=== PATIENT | female | born 1945 | race Hispanic/Latino ===

== ENCOUNTER 2018-09-03 17:37 | Inpatient (IN) | payer MEDICARE ==
[~2018-09-03] VITALS: Ht 157.5 cm; Wt 76.7 kg
[~2018-09-03 17:37] MED LIST: ALLOPURINOL100 MG PO; ASPIR 8181 MG; CIPRO500 MG PO; COREG12.5 MG; COUMADIN3 MG PO; CRESTOR40 MG; LANTUS100 UNITS/; LOSARTAN POTASS25 MG PO; METOPROLOL SUCC50 MG PO; PROMETHAZINE HC25 M1 PO; RENA-VITE TABL0.8 MG; RENA-VITE TABL0.8 MG PO; ROCALTROL1 MCG/1 ML; TYLENOL WITH C1 EACH PO; ZESTRIL2.5 MG PO
[2018-09-03] MEDS ORDERED: COUMADIN3 MG PO (18:16)
[2018-09-03] MEDS ORDERED: CALCITRIOL0.25 MCG PO (18:18)
[2018-09-03] MEDS ORDERED: LATANOPROST2.5 ML OU (18:22)
[2018-09-03] MEDS ORDERED: BASAGLAR SC (18:22)
[2018-09-03] MEDS ORDERED: ACETAMINOPHEN 1000 MG/100 ML IV STA (18:45)
[2018-09-03] MEDS ORDERED: SODIUM CHLORIDE 0.9% 1000ML 1,000 ML IV ONE (18:45)
[2018-09-03] MEDS ORDERED: SODIUM CHLORIDE 0.9% 1000ML 1,000 ML ONE (18:50)
[2018-09-03 18:52] LABS: BASOPHILS % 0.3 % (0.0-1.0); EOSINOPHILS % 0.1 % (0.0-6.0); HEMATOCRIT 37.5 % (34.2-44.1); HEMOGLOBIN 12.3 g/dL (12.0-16.0); LYMPHOCYTES # (AUTO) 0.8 (1.0-3.2); LYMPHOCYTES % 8.1 % (18.0-39.1); MEAN CORPUSCULAR HEMOGLOBIN 29.5 pg (28-32); MEAN CORPUSCULAR HGB CONC 32.8 g/dL (31-35); MEAN CORPUSCULAR VOLUME 89.9 fL (81-99); MONOCYTES # (AUTO) 0.7 (0.2-0.8); MONOCYTES % 6.8 % (4.4-11.3); NEUTROPHILS # (AUTO) 8.7 (2.1-6.9); NEUTROPHILS % 84.4 % (38.7-80.0); PLATELET COUNT 154 x10e3/uL (140-360); RED BLOOD COUNT 4.17 x10e6/uL (3.6-5.1); RED CELL DISTRIBUTION WIDTH 15.1 % (11.7-14.4)
[2018-09-03 19:05] LABS: ALBUMIN 2.9 g/dL (3.5-5.0); ALBUMIN/GLOBULIN RATIO 0.7 (0.8-2.0); ANION GAP 15.9 mmol/L (8-16); CREATININE, SERUM 2.69 mg/dL (0.57-1.11); POTASSIUM 4.9 mmol/L (3.5-5.1)
--- NOTE | 2018-09-03 19:17 | NUR ---
Walking rounds with DIRK Mckeon.
--- NOTE | 2018-09-03 19:24 | Diagnostic Imaging Report ---
EXAMINATION: CHEST SINGLE (PORTABLE) INDICATION: ^Chest pain COMPARISON: None FINDINGS: AP view TUBES and LINES: None. LUNGS: Lungs are well inflated. Bilateral interstitial edema. No consolidations. PLEURA: No pleural effusion or pneumothorax. HEART AND MEDIASTINUM: Moderate enlargement of the cardiac silhouette. Mild atherosclerotic calcifications of the aortic arch. BONES AND SOFT TISSUES: No acute osseous lesion. Soft tissues are unremarkable. UPPER ABDOMEN: No free air under the diaphragm. IMPRESSION: Cardiomegaly with associated bilateral interstitial edema. Signed by: Dr. Jo Ann Malone M.D. on 09/03/2018 7:21 PM
[2018-09-03 19:30] LABS: B-TYPE NATRIURETIC PEPTIDE2 1073.5 pg/mL (0-100)
[2018-09-03 19:31] LABS: BILIRUBIN,URINE NEGATIVE (NEGATIVE); CLARITY,URINE SL CLOUDY (CLEAR); COLOR,URINE YELLOW (YELLOW); KETONES,URINE NEGATIVE (NEGATIVE); LEUKOCYTE ESTERASE ,URINE NEGATIVE (NEGATIVE); NITRITE,URINE NEGATIVE (NEGATIVE); PROTEIN,URINE DIPSTICK 2+ (NEGATIVE); URINE UROBILINOGEN 0.2 mg/dL (0.2 - 1)
[2018-09-03 19:41] LABS: BACTERIA,URINE MANY /HPF; RBC,URINE 21-50 /HPF (0-5)
[2018-09-03] MEDS ORDERED: FUROSEMIDE INJ 10 MG/ML 4 ML VIAL IV ONE (20:15)
[2018-09-03] MEDS ORDERED: ACETAMINOPHEN 325 MG TAB PO PRN (20:30)
[2018-09-03] MEDS ORDERED: SODIUM CHLORIDE FLUSH 10 ML SYR INJ PRN (20:30)
[2018-09-03] MEDS ORDERED: DEXTROSE 50% SYRINGE 50 ML IV PRN (20:30)
[2018-09-03] MEDS ORDERED: ONDANSETRON HCL INJ 2MG/ML 2ML 2 MG/ML VIAL IV ONE (20:30)
[2018-09-03] MEDS: CEFTRIAXONE SOD 1 GM/NS 50 ML 50 ML IV SCH (20:43)
--- OUTSIDE RECORDS SUMMARY | 2018-09-03 20:44 | XMS REPORT ---
[facility] Address Unknown Phone Unavailable Care Team Providers Care Storm Window Installer Name Role Phone Carolyn PHAN Unavailable Unavailable Problems This patient has no known problems. Allergies, Adverse Reactions, Alerts This patient has no known allergies or adverse reactions. Medications This patient has no known medications. Results Test Description Test Time Test Comments Text Results Atomic Results Result Comments CHEST SINGLE (PORTABLE) 2018-09-03 19:18:00 [place] [address] Patient Name: ANGE HOLLAND MR #: [id number] : 1945 Age/Sex: 73/F Req #: [id number] Adm Physician: Ordered by: ANKUSH PHAN MD Report #: [id number] Location: ER Room/Bed: Procedure: [id number] DX/CHEST SINGLE (PORTABLE) Exam Date: 09/03/18 Exam Time: 1900 REPORT STATUS: Signed EXAMINATION: CHEST SINGLE (PORTABLE) INDICATION: Chest pain COMPARISON: None FINDINGS: AP view TUBES and LINES: None. LUNGS: Lungs are well inflated. Bilateral interstitial edema. No consolidations. PLEURA: No pleural effusion or pneumothorax. HEART AND MEDIASTINUM: Moderate enlargement of the cardiac silhouette. Mild atherosclerotic calcifications of the aortic arch. BONES AND SOFT TISSUES: No acute osseous lesion. Soft tissues are unremarkable. UPPER ABDOMEN: No free air under the diaphragm. IMPRESSION: Cardiomegaly with associated bilateral interstitial edema. Signed by: Dr. Jin Malone M.D. on 09/03/2018 7:21 PM Dictated By: JIN MALONE MD 20 Transcribed By: MARIANA on 09/03/181920 COPY TO: ANKUSH PHAN MD
[2018-09-03] MEDS: INSULIN REGULAR, HUMAN 100 UNIT/1 ML 3ML VIAL SQ SCH (23:03)
--- NOTE | 2018-09-03 23:40 | NUR ---
Received report from Linda, [place] nurse. Patient came to the unit via stretcher and accompanied by her daughter and son. No pain or distress noted. Call light within reach
[2018-09-03 23:49] VITALS: BP 110/57
[2018-09-04] VITALS (7 sets, daily range): BP systolic 90–136; BP diastolic 53–84
--- NOTE | 2018-09-04 04:31 | NUR ---
Called Dr. Arias about patient's temperature and 9 out of 10 pain. He said to give Tylenol 650 mg PO and Tylenol 1 g IV.
[2018-09-04] MEDS ORDERED: ACETAMINOPHEN 1000 MG/100 ML IV STA (04:32)
[2018-09-04] MEDS ORDERED: SODIUM CHLORIDE 0.9% 250ML 250 ML ONE ×2 (04:48→21:11)
[2018-09-04 05:23] LABS: BASOPHILS % 0.2 % (0.0-1.0); HEMATOCRIT 35.2 % (34.2-44.1); HEMOGLOBIN 11.7 g/dL (12.0-16.0); LYMPHOCYTES # (AUTO) 0.3 (1.0-3.2); LYMPHOCYTES % 3.5 % (18.0-39.1); MEAN CORPUSCULAR HEMOGLOBIN 29.3 pg (28-32); MEAN CORPUSCULAR HGB CONC 33.2 g/dL (31-35); MEAN CORPUSCULAR VOLUME 88.2 fL (81-99); MONOCYTES # (AUTO) 0.4 (0.2-0.8); MONOCYTES % 4.2 % (4.4-11.3); NEUTROPHILS # (AUTO) 7.8 (2.1-6.9); NEUTROPHILS % 91.7 % (38.7-80.0); PLATELET COUNT 140 x10e3/uL (140-360); RED BLOOD COUNT 3.99 x10e6/uL (3.6-5.1); RED CELL DISTRIBUTION WIDTH 14.7 % (11.7-14.4)
[2018-09-04 05:48] LABS: CREATINE KINASE MB 4.3 ng/mL (0-5.0)
[2018-09-04 06:15] LABS: ALBUMIN 2.5 g/dL (3.5-5.0); ALBUMIN/GLOBULIN RATIO 0.6 (0.8-2.0); ANION GAP 16.2 mmol/L (8-16); CALCIUM 8.4 mg/dL (8.4-10.2); CREATININE, SERUM 2.48 mg/dL (0.57-1.11); POTASSIUM 4.2 mmol/L (3.5-5.1)
--- NOTE | 2018-09-04 07:20 | NUR ---
pt asleep resp even and unlabored at this time no distress noted, pt arousal to name, and touch, family member at bedside, call light in reach.
--- NOTE | 2018-09-04 07:23 | NUR ---
Patient in bed. No pain or distress. Call light within reach. Son at bedside. Report given to oncoming nurse
[2018-09-04] MEDS: INSULIN REGULAR, HUMAN 100 UNIT/1 ML 3ML VIAL SQ SCH ×4 (07:30→20:54)
[2018-09-04] MEDS: FOLIC ACID/CYANOCOB/PYRIDOXINE TAB PO SCH (08:30)
[2018-09-04] MEDS: ALLOPURINOL 100 MG TAB PO SCH (08:30)
[2018-09-04] MEDS ORDERED: FUROSEMIDE INJ 10 MG/ML 4 ML VIAL IV SCH (09:00)
[2018-09-04] MEDS ORDERED: HYDROCODONE/APAP 7.5MG-325MG 1 EA TAB PO PRN (10:30)
--- NOTE | 2018-09-04 10:40 | NUR ---
pt off unit for testing.
[2018-09-04] MEDS ORDERED: DIATRIZOATE MEGL/DIATRIZOA SOD 30 ML BTL PO ONE (10:48)
[2018-09-04 10:54] LABS: INR 4.01; PROTHROMBIN TIME 39.9 seconds (11.9-14.5)
[2018-09-04] MEDS ORDERED: CEFTRIAXONE SOD 1 GM/NS 50 ML 50 ML IV SCH (11:00)
--- NOTE | 2018-09-04 11:20 | NUR ---
pt returned to unit no distress noted, call light in reach.
[2018-09-04] MEDS ORDERED: HYDRALAZINE HCL 20 MG/ML VIAL IV PRN (11:30)
[2018-09-04] MEDS ORDERED: METOPROLOL TARTRATE INJ 1 MG/ML VIAL IV PRN (11:30)
[2018-09-04] MEDS: AZITHROMYCIN 250MG/NS 100 ML 100 ML IV SCH (12:48)
[2018-09-04] MEDS: METOPROLOL SUCCINATE 50 MG TAB XL PO SCH (12:49)
--- NOTE | 2018-09-04 13:28 | Diagnostic Imaging Report ---
EXAM: CT Chest, Abdomen and Pelvis WITHOUT contrast INDICATION: Shortness of breath. ^FEVER COMPARISON: None. TECHNIQUE: Chest, abdomen and pelvis were scanned utilizing a multidetector helical scanner from the lung apex to the pubic symphysis without administration of IV contrast. Absence of intravenous contrast decreases sensitivity for detection of focal lesions and vascular pathology. Coronal and sagittal reformations were obtained. Routine protocol was performed. IV CONTRAST: None ORAL CONTRAST: Gastrografin COMPLICATIONS: None. Grade 2.48. GFR 19. Patient is not dialysis patient. RADIATION DOSE: Total DLP: 963.46 mGy*cm Estimated effective dose: (DLP x 0.015 x size factor) mSv CTDIvol has been reviewed. It is below the limits set by the Radiation Protocol Committee (RPC). FINDINGS: LINES and TUBES: None. LUNGS AND AIRWAYS: Left lower lobe lobar consolidative pneumonia. Airways are normal. PLEURA: The pleural spaces are clear. HEART AND MEDIASTINUM: The thyroid gland is normal. No mediastinal, hilar or axillary lymphadenopathy. The heart is normal in size. There is no pericardial effusion. There are mild atherosclerotic calcifications in the aorta and coronary arteries. HEPATOBILIARY: No focal hepatic lesions. No biliary ductal dilation. GALLBLADDER: No radio-opaque stones or sludge. No wall thickening. Gallbladder is mildly prominent measuring 7.8 x 4.5 cm. SPLEEN: No splenomegaly. PANCREAS: There is fatty infiltration of the pancreas. ADRENALS: No adrenal nodules KIDNEYS/URETERS: Bilateral renal cortical atrophy. No hydronephrosis. 1.4 cm cystic lesion in the superior pole of the right kidney. No stones. GI TRACT: No abnormal distention, wall thickening, or evidence of bowel obstruction. There are diverticula within the colon without evidence of diverticulitis. Appendix is normal. PELVIC ORGANS/BLADDER: Hernandez catheter is in place. Bladder is fully decompressed. LYMPH NODES: No lymphadenopathy. VESSELS: There is severe atherosclerotic disease in the aorta and major arterial branches. PERITONEUM / RETROPERITONEUM: No free air or fluid. BONES: There are degenerative changes in the lumbar spine. Grade 1 anterior listhesis of L3 on L4. SOFT TISSUES: Unremarkable. IMPRESSION: 1. Left lower lobe lobar pneumonia. 2. Bilateral renal cortical atrophy. 3. Mildly prominent/distended gallbladder. No definite evidence of acute cholecystitis. Signed by: Dr. Rishi Rogers M.D. on 09/04/2018 1:25 PM
[2018-09-04] MEDS: ACETAMINOPHEN 325 MG TAB PO PRN ×2 (13:38→19:21)
[2018-09-04 14:12] LABS: CREATINE KINASE MB 4.9 ng/mL (0-5.0)
[2018-09-04 15:55] LABS: CHOL/HDL RATIO 2.5 (3.0-3.6); PHOSPHORUS 4.7 MG/DL (2.3-4.7)
[2018-09-04 16:15] LABS: THYROID STIMULATING HORMONE 3.019 uIU/mL (0.350-4.940)
--- NOTE | 2018-09-04 17:43 | History and Physical ---
CHIEF COMPLAINT: Fever, generalized weakness, not feeling well and left-sided chest pain associated with increasing cough for the past two days prior to admission. HISTORY OF PRESENT ILLNESS: The patient is a 73-year-old female, who complained of left-sided chest pain when she coughs. The patient has been coughing for the past two days prior to her presentation. She also has a fever as well. The patient came to the emergency room. Chest x-ray showed vascular congestion. She has fever of 101 to 102. She also had a bladder infection, positive for urinalysis. The patient was placed on IV Lasix and antibiotics and admitted to the hospital for further evaluation and treatment. The patient did receive Rocephin. The patient is stable at this time. She is feeling slightly better. PAST MEDICAL HISTORY: Atrial fibrillation, on anticoagulant therapy; hypertension; diabetes type 2; dyslipidemia; morbid obesity; history of DVT of lower extremity; hypothyroidism. PAST SURGICAL HISTORY: Noncontributory. SOCIAL HISTORY: The patient does not smoke or use alcohol. No recreational drug use. ALLERGIES: TO CODEINE. HOME MEDICATIONS: She is on allopurinol, aspirin, calcitriol, folic acid, eye drops, metoprolol succinate, Crestor, Coumadin, and Basaglar insulin. PHYSICAL EXAMINATION: VITAL SIGNS: T-max 101.5; blood pressure 106/58, on admission was 92/68; pulse rate is 112-89; respirations 20-22. GENERAL: The patient seems weak, but she is not in any respiratory distress. HEENT: Normocephalic, atraumatic. Anicteric. NECK: Supple grossly. PULMONARY: Diminished breath sound at the bases with coarse rales. CARDIOVASCULAR: S1, S2. Atrial fibrillation with rapid heart rate. ABDOMEN: Soft and obese. There is tenderness in the left upper chest area on palpation. No rebound. No guarding. EXTREMITIES: No cyanosis or edema. NEUROLOGIC: No gross focal deficit. Moving all extremities. LABORATORY DATA: Sodium is 131, potassium 4.2, chloride 102, bicarb 17, BUN 25, creatinine 2.5, glucose 114. WBCs 8.5, hemoglobin 11.7, hematocrit 35.2, platelets are 140. IMPRESSION: 1. Abnormal chest x-ray with vascular congestion. However, associated with fever and cough, could be secondary to pneumonia. We will have a better testing with a CT chest without contrast due to chronic kidney disease. 2. Vascular congestion, most likely from stress of infection. 3. Positive for urinalysis with urinary tract infection. 4. Fever as above. PLAN: Continue with antibiotic, Rocephin 1 g a day and then azithromycin 250 mg daily as well. Continue with same home medication. Obtain PT, INR, and we will resume warfarin if needed. Continue with rate control medication. Obtain a CT of abdomen and pelvis and CT of the chest, all without IV contrast. We will continue with treatment at this time. Echocardiogram, Dr. Fernandez has been consulted for atrial fibrillation and for chest pain. MD VERNON Barclay/GILL /[id number]
--- NOTE | 2018-09-04 19:21 | NUR ---
REPORT GIVEN TO ONCOMING NURSE, FOR CONTINUED CARE.
--- NOTE | 2018-09-04 19:25 | NUR ---
PATIENT RECEIVED. PATIENT IS RESTING IN BED, AAOX3. RESP EVEN AND UNLABORED. NO ACUTE DISTRESS NOTED. PATIENT DENIES OF ANY PAIN OR DISCOMFORT AT THIS TIME. TELE IN PLACE. PARRA IN PLACE, CLEAR AND YELLOW URINE NOTED. SON AT BED SIDE. CALL LIGHT WITHIN REACH. BED LOW/LOCKED. CONTINUE TO MONITOR CLOSELY
[2018-09-04] MEDS: CEFTRIAXONE SOD 1 GM/NS 50 ML 50 ML IV SCH (20:54)
[2018-09-04] MEDS: LATANOPROST(OPTH) 2.5 ML BTL OU SCH (20:54)
[2018-09-04 23:04] LABS: CREATINE KINASE MB 3.6 ng/mL (0-5.0)
[2018-09-05] VITALS (7 sets, daily range): BP systolic 102–154; BP diastolic 58–96
[2018-09-05 04:56] LABS: BASOPHILS % 0.3 % (0.0-1.0); EOSINOPHILS % 0.1 % (0.0-6.0); HEMATOCRIT 38.7 % (34.2-44.1); HEMOGLOBIN 12.6 g/dL (12.0-16.0); LYMPHOCYTES # (AUTO) 0.3 (1.0-3.2); LYMPHOCYTES % 4.4 % (18.0-39.1); MEAN CORPUSCULAR HEMOGLOBIN 29.2 pg (28-32); MEAN CORPUSCULAR HGB CONC 32.6 g/dL (31-35); MEAN CORPUSCULAR VOLUME 89.6 fL (81-99); MONOCYTES # (AUTO) 0.3 (0.2-0.8); MONOCYTES % 3.4 % (4.4-11.3); NEUTROPHILS # (AUTO) 6.7 (2.1-6.9); NEUTROPHILS % 91.3 % (38.7-80.0); PLATELET COUNT 131 x10e3/uL (140-360); RED BLOOD COUNT 4.32 x10e6/uL (3.6-5.1); RED CELL DISTRIBUTION WIDTH 14.8 % (11.7-14.4)
[2018-09-05 05:07] LABS: INR 4.42
[2018-09-05 05:14] LABS: ANION GAP 17.1 mmol/L (8-16); CREATININE, SERUM 2.58 mg/dL (0.57-1.11); POTASSIUM 4.1 mmol/L (3.5-5.1)
[2018-09-05] MEDS: ACETAMINOPHEN 325 MG TAB PO PRN ×2 (05:41→21:20)
--- NOTE | 2018-09-05 06:38 | NUR ---
NOTIFIED DR ERYN PEREA PT 43, PATIENT HAS BEEN HAVING LOOSE BMX5 AND FEVER THIS MORNING. NEW ORDER RECEIVED.
[2018-09-05] MEDS: INSULIN REGULAR, HUMAN 100 UNIT/1 ML 3ML VIAL SQ SCH ×4 (07:30→21:19)
[2018-09-05] MEDS ORDERED: FUROSEMIDE INJ 10 MG/ML 4 ML VIAL IV SCH (09:00)
[2018-09-05] MEDS: CALCITRIOL 0.25 MCG CAP PO SCH (09:29)
[2018-09-05] MEDS: FOLIC ACID/CYANOCOB/PYRIDOXINE TAB PO SCH (09:29)
[2018-09-05] MEDS: ALLOPURINOL 100 MG TAB PO SCH (09:30)
[2018-09-05] MEDS: METOPROLOL SUCCINATE 50 MG TAB XL PO SCH (09:30)
[2018-09-05 09:42] LABS: BAND NEUTROPHILS % (MANUAL) 4 %; EOSINOPHILS % (MANUAL) 2 % (0-7); LYMPHOCYTES % (MANUAL) 7 % (19-48); MONOCYTES % (MANUAL) 3 % (3.4-9.0); NEUTROPHILS % (MANUAL) 84 % (40-74); PLATELET ESTIMATE ADEQUATE; PLATELET MORPHOLOGY COMMENT NORMAL; RBC MORPHOLOGY COMMENT NORMAL
[2018-09-05] MEDS: SODIUM CHLORIDE 0.9% 1000ML 1,000 ML IV SCH ×2 (09:57→21:19)
[2018-09-05] MEDS: VANCOMYCIN 1GM/NS 250 ML 250 ML IV SCH (09:57)
[2018-09-05] MEDS: AZITHROMYCIN 250MG/NS 100 ML 100 ML IV SCH (12:10)
[2018-09-05] MEDS ORDERED: METOPROLOL TARTRATE INJ 1 MG/ML VIAL IV PRN (12:30)
[2018-09-05] MEDS ORDERED: HYDRALAZINE HCL 20 MG/ML VIAL IV PRN (12:30)
[2018-09-05 12:43] LABS: CHOL/HDL RATIO 2.7 (3.0-3.6); MAGNESIUM 1.9 MG/DL (1.3-2.1)
[2018-09-05 13:03] LABS: THYROID STIMULATING HORMONE 3.214 uIU/mL (0.350-4.940)
[2018-09-05] MEDS: CEFTRIAXONE SOD 1 GM/NS 50 ML 50 ML IV SCH (21:19)
[2018-09-05] MEDS: LATANOPROST(OPTH) 2.5 ML BTL OU SCH (21:19)
[2018-09-06] VITALS (8 sets, daily range): BP systolic 106–154; BP diastolic 59–89
[2018-09-06] MEDS: SODIUM CHLORIDE 0.9% 1000ML 1,000 ML IV SCH (05:38)
[2018-09-06 06:30] LABS: BASOPHILS % 0.5 % (0.0-1.0); EOSINOPHILS # (AUTO) 0.2 (0.0-0.4); EOSINOPHILS % 3.1 % (0.0-6.0); HEMATOCRIT 34.1 % (34.2-44.1); HEMOGLOBIN 11.1 g/dL (12.0-16.0); LYMPHOCYTES # (AUTO) 0.6 (1.0-3.2); LYMPHOCYTES % 10.3 % (18.0-39.1); MEAN CORPUSCULAR HEMOGLOBIN 28.9 pg (28-32); MEAN CORPUSCULAR HGB CONC 32.6 g/dL (31-35); MEAN CORPUSCULAR VOLUME 88.8 fL (81-99); MONOCYTES # (AUTO) 0.5 (0.2-0.8); MONOCYTES % 9.5 % (4.4-11.3); NEUTROPHILS # (AUTO) 4.2 (2.1-6.9); NEUTROPHILS % 75.9 % (38.7-80.0); PLATELET COUNT 171 x10e3/uL (140-360); RED BLOOD COUNT 3.84 x10e6/uL (3.6-5.1); RED CELL DISTRIBUTION WIDTH 14.9 % (11.7-14.4)
[2018-09-06 06:36] LABS: INR 4.36
[2018-09-06 06:45] LABS: PROTHROMBIN TIME 42.5 seconds (11.9-14.5)
[2018-09-06 06:57] LABS: ALBUMIN 2.1 g/dL (3.5-5.0); ALBUMIN/GLOBULIN RATIO 0.6 (0.8-2.0); ANION GAP 12.8 mmol/L (8-16); CALCIUM 8.6 mg/dL (8.4-10.2); CREATININE, SERUM 2.03 mg/dL (0.57-1.11); POTASSIUM 3.8 mmol/L (3.5-5.1)
--- NOTE | 2018-09-06 07:00 | NUR ---
BEDSIDE SHIFT REPORT ON PT FROM NIGHT RN. PT DENIES NEEDS AT THIS TIME.
[2018-09-06] MEDS: INSULIN REGULAR, HUMAN 100 UNIT/1 ML 3ML VIAL SQ SCH ×4 (07:30→21:00)
[2018-09-06] MEDS: CALCITRIOL 0.25 MCG CAP PO SCH (09:01)
[2018-09-06] MEDS: FOLIC ACID/CYANOCOB/PYRIDOXINE TAB PO SCH (09:01)
[2018-09-06] MEDS: VANCOMYCIN 1GM/NS 250 ML 250 ML IV SCH (09:01)
[2018-09-06] MEDS: METOPROLOL SUCCINATE 50 MG TAB XL PO SCH (09:02)
[2018-09-06] MEDS: ALLOPURINOL 100 MG TAB PO SCH (09:02)
[2018-09-06] MEDS ORDERED: REGADENOSON 0.4 MG/5 ML SYR IV ONE ×2 (09:32→12:32)
[2018-09-06 09:36] LABS: EOSINOPHILS % (MANUAL) 5 % (0-7); LYMPHOCYTES % (MANUAL) 10 % (19-48); MONOCYTES % (MANUAL) 8 % (3.4-9.0); NEUTROPHILS % (MANUAL) 77 % (40-74)
[2018-09-06 09:37] LABS: PLATELET ESTIMATE ADEQUATE; PLATELET MORPHOLOGY COMMENT NORMAL
[2018-09-06 09:38] LABS: RBC MORPHOLOGY COMMENT NORMAL
--- NOTE | 2018-09-06 09:58 | NUR ---
IMM letter delivered and explained to pt. She verbalized understanding. Signed copy in chart. Korean copy provided to pt.
[2018-09-06] MEDS: AZITHROMYCIN 250MG/NS 100 ML 100 ML IV SCH (11:30)
--- NOTE | 2018-09-06 11:30 | NUR ---
PT OFF THE UNIT TO IR FOR STRESS TESTING.
--- NOTE | 2018-09-06 15:00 | NUR ---
PT BACK TO THE FLOOR FROM STRESS TESTING. PT DENIES NEEDS AT THIS TIME.
[2018-09-06] MEDS: CEFTRIAXONE SOD 1 GM/NS 50 ML 50 ML IV SCH (21:00)
[2018-09-06] MEDS: LATANOPROST(OPTH) 2.5 ML BTL OU SCH (22:12)
[2018-09-07] VITALS (8 sets, daily range): BP systolic 117–149; BP diastolic 59–82
[2018-09-07 06:12] LABS: ANION GAP 13.3 mmol/L (8-16); CALCIUM 8.7 mg/dL (8.4-10.2); CREATININE, SERUM 1.95 mg/dL (0.57-1.11); POTASSIUM 4.3 mmol/L (3.5-5.1)
--- NOTE | 2018-09-07 07:00 | NUR ---
BEDSIDE SHIFT REPORT ON PT FROM NIGHT RN. PT DENIES NEEDS AT THIS TIME.
[2018-09-07] MEDS: INSULIN REGULAR, HUMAN 100 UNIT/1 ML 3ML VIAL SQ SCH ×4 (07:30→22:52)
[2018-09-07] MEDS: VANCOMYCIN 1GM/NS 250 ML 250 ML IV SCH (08:55)
[2018-09-07] MEDS: CALCITRIOL 0.25 MCG CAP PO SCH (08:56)
[2018-09-07] MEDS: ALLOPURINOL 100 MG TAB PO SCH (08:56)
[2018-09-07] MEDS: FOLIC ACID/CYANOCOB/PYRIDOXINE TAB PO SCH (08:56)
[2018-09-07] MEDS: METOPROLOL SUCCINATE 50 MG TAB XL PO SCH (08:58)
[2018-09-07 10:15] LABS: INR 2.96; PROTHROMBIN TIME 31.6 seconds (11.9-14.5)
--- NOTE | 2018-09-07 12:00 | NUR ---
THIS NURSE CALLED BY PT AND TOLD PT NEEDED TO DISCHARGE WITH WALKER.
[2018-09-07] MEDS: AZITHROMYCIN 250MG/NS 100 ML 100 ML IV SCH (12:40)
[2018-09-07] MEDS: ACETAMINOPHEN 325 MG TAB PO PRN (12:42)
--- NOTE | 2018-09-07 13:00 | NUR ---
IVONE FROM THE STAND POINT OF DR. LUND (CARDIOLOGY), FOR PT TO DISCHARGE HOME AND FOLLOW UP IN 1 WEEK TO HIS OFFICE.
--- NOTE | 2018-09-07 16:15 | NUR ---
SPEAKING WITH DR. CERNA ABOUT CARDIOLOGY CLEARANCE AND OK TO DC. ACCESSING THE PT FOR MORE LABS AND RESOLUTION OF PNU. DR. CERNA PLACED NEW ORDERS.
--- NOTE | 2018-09-07 17:47 | Myoview Stress Test ---
DATE OF STUDY: 09/06/2018 12:00:00 Stress Test - Treadmill ONLY PROCEDURE: Lexiscan stress test. INDICATION: Chest pain. DESCRIPTION OF PROCEDURE: After informed consent, the patient was brought to the stress lab. She was given 11 mCi of technetium-99m Myoview. Myocardial perfusion SPECT images were obtained in the . Subsequently, the patient was given 0.4 mg of Lexiscan over 10 seconds. The patient was given 31.1 mCi of technetium-99m Myoview and myocardial perfusion SPECT images were obtained in the were also obtained. The patient tolerated the procedure without any complications. REPORT: 1. Baseline EKG shows atrial fibrillation at 85 beats per minute, normal axis, normal interval. T wave inversion in II, III, aVF, V3 to V6. 2. Parameters: a. Resting heart rate is 80 beats per minute. b. Maximum heart rate is 99 beats per minute. c. Resting blood pressure . d. Maximum blood pressure 149/68 mmHg. 3. . INTERPRETATION: 1. Negative chest pain. 2. Negative for arrhythmias. 3. Blood pressure response consistent with Lexiscan. 4. No significant ST-T changes seen during Lexiscan infusion compared to baseline. 5. Analysis of SPECT images reveals without any significant perfusion defects. CONCLUSIONS: 1. No evidence of significant ischemia study. 2. Mild hypokinesis of the left ventricle is noted. 3. Overall ejection fraction is 42%. MD ROBB Alexander/MODL /[id number]
[2018-09-07] MEDS: CEFTRIAXONE SOD 1 GM/NS 50 ML 50 ML IV SCH (20:15)
[2018-09-07] MEDS: LATANOPROST(OPTH) 2.5 ML BTL OU SCH (21:00)
[2018-09-08 01:11] VITALS: BP 117/65
[2018-09-08 05:27] LABS: BASOPHILS % 0.8 % (0.0-1.0); EOSINOPHILS # (AUTO) 0.3 (0.0-0.4); EOSINOPHILS % 4.8 % (0.0-6.0); HEMATOCRIT 33.6 % (34.2-44.1); HEMOGLOBIN 11.1 g/dL (12.0-16.0); LYMPHOCYTES # (AUTO) 0.8 (1.0-3.2); MEAN CORPUSCULAR HEMOGLOBIN 29.3 pg (28-32); MEAN CORPUSCULAR VOLUME 88.7 fL (81-99); MONOCYTES # (AUTO) 0.5 (0.2-0.8); MONOCYTES % 9.5 % (4.4-11.3); NEUTROPHILS # (AUTO) 3.5 (2.1-6.9); NEUTROPHILS % 66.8 % (38.7-80.0); PLATELET COUNT 249 x10e3/uL (140-360); RED BLOOD COUNT 3.79 x10e6/uL (3.6-5.1)
[2018-09-08 05:42] LABS: INR 2.89
[2018-09-08 05:47] LABS: ANION GAP 15.2 mmol/L (8-16); CREATININE, SERUM 1.96 mg/dL (0.57-1.11); POTASSIUM 4.2 mmol/L (3.5-5.1)
[2018-09-08 06:33] VITALS: BP 139/76
--- NOTE | 2018-09-08 07:05 | NUR ---
Received patient mid fowlers position, side rails upx2, call light within reach. Resting with eyes closed. Arousable to verbal stimuli. Respirations even and unlabored. Will continue to monitor.
[2018-09-08] MEDS: INSULIN REGULAR, HUMAN 100 UNIT/1 ML 3ML VIAL SQ SCH ×3 (07:30→16:17)
[2018-09-08 08:05] VITALS: BP 134/72
[2018-09-08 08:33] LABS: EOSINOPHILS % (MANUAL) 4 % (0-7); LYMPHOCYTES % (MANUAL) 14 % (19-48); MONOCYTES % (MANUAL) 9 % (3.4-9.0); NEUTROPHILS % (MANUAL) 71 % (40-74); PLATELET ESTIMATE ADEQUATE; PLATELET MORPHOLOGY COMMENT NORMAL
[2018-09-08 08:34] LABS: RBC MORPHOLOGY COMMENT NORMAL
--- NOTE | 2018-09-08 09:27 | NUR ---
paged to notify vancomycin trough 15.3. Awaiting for call back
[2018-09-08] MEDS: CALCITRIOL 0.25 MCG CAP PO SCH (09:34)
[2018-09-08] MEDS: FOLIC ACID/CYANOCOB/PYRIDOXINE TAB PO SCH (09:34)
[2018-09-08] MEDS: ALLOPURINOL 100 MG TAB PO SCH (09:35)
[2018-09-08] MEDS: METOPROLOL SUCCINATE 50 MG TAB XL PO SCH (09:35)
[2018-09-08] MEDS: VANCOMYCIN 1GM/NS 250 ML 250 ML IV SCH (11:00)
[2018-09-08] MEDS ORDERED: SODIUM CHLORIDE 0.9% 50ML 50 ML ONE (11:39)
[2018-09-08 12:26] VITALS: BP 153/65
--- NOTE | 2018-09-08 14:44 | NUR ---
IMM letter delivered and explained to pt and her family at bedside. They verbalized understanding. Pt's daughter signed form. Signed form filed in chart. Russian copy provided to family.
[2018-09-08] MEDS ORDERED: TESSALON PERLE100 MG PO (16:19)
[2018-09-08] MEDS ORDERED: AUGMENTIN 875-1 EACH PO (16:19)
[2018-09-08 16:49] VITALS: BP 129/71
--- NOTE | 2018-09-08 16:54 | NUR ---
Left FA IV discontinued. No signs of infiltration noted. 2x2 gauze and tape placed. Taken via wheelchair by PCT to personal car. Accompanied by son. AAOX3 to time, person, place. Respirations even and unlabored. Discharge instructions, rx, all personal belongings, personal walker taken with patient.
--- NOTE | 2018-09-09 12:24 | Discharge Summary ---
PRIMARY CARE PHYSICIAN: Niharika Obrien MD CONSULTANTS: Jah Fernandez MD FINAL DIAGNOSES: 1. Sepsis on admission due to left lower lobe pneumonia associated with fever, cough. Hypotension noticed, but responded to IV fluid bolus. 2. Acute kidney injury secondary to severe dehydration due to infection and sepsis as the above. 3. Chronic atrial fibrillation with supratherapeutic INR of 4.42 on admission. 4. Urinary tract infection. SUMMARY: The patient is a pleasant 73-year-old female, who came in with cough, fever and not feeling well, generalized body ache and pain. CT scan of abdomen and pelvis obtained due to vague one-view portable chest x-ray. There was no fluid congestion. As a matter of fact, the patient was dehydrated with elevation of BUN and creatinine. The patient also had left lower lobe pneumonia. She was rehydrated, blood pressure improved and she also placed on aggressive antibiotics. The patient's INR now therapeutic after holding off the warfarin, which she has taken at home for her chronic atrial fibrillation. The patient is otherwise stable. Laboratory workup is stable. Influenza A and B negative. The patient's urinalysis shown she had many bacteria, but negative leukocyte esterase; could be contaminated urine. However, the patient continued with treatment. Blood cultures are negative. The patient is stable. She is to go home with Augmentin 875 mg daily for seven days. Tessalon Perles as needed for cough. Home medication instructions. The patient will take her warfarin, but we will hold off on the extra lower dose for now. Follow up with Dr. Obrien for repeated PT, INR, and follow up with Dr. Fernandez for her atrial fibrillation. The patient is otherwise stable, discharged home today. MD Jordon BarclayT/MODL /[id number]
== END 2018-09-08 17:04 | disposition home or self-care (01) | DRG 871 ==
LOC: ER 17:37 → ERHOLD 20:22 → MED/SURG2 23:42
PROVIDERS: ADMIT Internal Medicine; ATTEND Internal Medicine
DX: A41.9 Sepsis, unspecified organism (principal); J18.9 Pneumonia, unspecified organism; N17.9 Acute kidney failure, unspecified; N39.0 Urinary tract infection, site not specified; D68.318 Other hemorrhagic disorder due to intrinsic circulating anticoagulants, antibodies, or inhibitors; Z79.01 Long term (current) use of anticoagulants; J40 Bronchitis, not specified as acute or chronic; Z86.718 Personal history of other venous thrombosis and embolism; K76.9 Liver disease, unspecified; I25.10 Atherosclerotic heart disease of native coronary artery without angina pectoris; I48.0 Paroxysmal atrial fibrillation; E86.0 Dehydration; E11.9 Type 2 diabetes mellitus without complications; E03.9 Hypothyroidism, unspecified; Z79.899 Other long term (current) drug therapy
CPT/HCPCS: 36415; 51700; 71045; 71250; 74176; 78452; 80048; 80053; 80061; 80202; 81001; 82306; 82550; 82553; 82948; 83036; 83605; 83690; 83735; 83880; 84100; 84443; 84484; 84550; 85025; 85610; 87040; 87400; 93005; 93017; 93306; 96372; 97139; 99284; A9502; J0696; J1940; J3370; J7030; J7050

== ENCOUNTER 2019-03-21 14:59 | Inpatient (IN) | payer MEDICARE ==
[~2019-03-21] VITALS: Ht 157.5 cm; Wt 86.9 kg
[~2019-03-21 14:59] MED LIST changes: +AUGMENTIN 875-1 EACH PO; +BASAGLAR SC; +CALCITRIOL0.25 MCG PO; -CRESTOR40 MG; +CRESTOR40 MG PO; +LATANOPROST2.5 ML OU; +TESSALON PERLE100 MG PO
[2019-03-21] MEDS ORDERED: SODIUM CHLORIDE 0.9% 500ML 500 ML IV STA (15:12)
[2019-03-21] MEDS ORDERED: ONDANSETRON HCL INJ 2MG/ML 2ML 2 MG/ML VIAL IV STA (15:12)
[2019-03-21 16:29] LABS: BILIRUBIN,URINE NEGATIVE (NEGATIVE); CLARITY,URINE SL CLOUDY (CLEAR); COLOR,URINE YELLOW (YELLOW); KETONES,URINE NEGATIVE (NEGATIVE); LEUKOCYTE ESTERASE ,URINE SMALL (NEGATIVE); NITRITE,URINE POSITIVE (NEGATIVE); PROTEIN,URINE DIPSTICK 2+ (NEGATIVE); URINE UROBILINOGEN 0.2 mg/dL (0.2 - 1)
[2019-03-21 16:47] LABS: BASOPHILS % 0.2 % (0.0-1.0); EOSINOPHILS % 0.2 % (0.0-6.0); HEMATOCRIT 40.8 % (34.2-44.1); HEMOGLOBIN 13.2 g/dL (12.0-16.0); LYMPHOCYTES # (AUTO) 0.3 (1.0-3.2); LYMPHOCYTES % 2.2 % (18.0-39.1); MEAN CORPUSCULAR HEMOGLOBIN 29.9 pg (28-32); MEAN CORPUSCULAR HGB CONC 32.4 g/dL (31-35); MEAN CORPUSCULAR VOLUME 92.3 fL (81-99); MONOCYTES # (AUTO) 0.3 (0.2-0.8); MONOCYTES % 2.5 % (4.4-11.3); NEUTROPHILS # (AUTO) 11.6 (2.1-6.9); NEUTROPHILS % 94.7 % (38.7-80.0); PLATELET COUNT 192 x10e3/uL (140-360); RED BLOOD COUNT 4.42 x10e6/uL (3.6-5.1); RED CELL DISTRIBUTION WIDTH 15.4 % (11.7-14.4)
[2019-03-21 16:54] LABS: INR 1.87; PROTHROMBIN TIME 22.2 seconds (11.9-14.5)
--- NOTE | 2019-03-21 16:54 | Diagnostic Imaging Report ---
EXAMINATION: CHEST SINGLE (PORTABLE) INDICATION: Shortness of breath COMPARISON: Chest CT of 09/04/2018 FINDINGS: LINES/TUBES:None LUNGS:The lungs are well-inflated. No focal consolidation or pulmonary edema. PLEURA:No pleural effusion or pneumothorax. MEDIASTINUM:Cardiomediastinal silhouette is stably enlarged. Atherosclerotic calcifications of the thoracic aorta. BONES/SOFT TISSUES:No acute osseous injury. ABDOMEN:No free air under the diaphragm. IMPRESSION: Unchanged cardiomegaly. No focal pneumonia or pulmonary edema. Signed by: Pelon Dan MD on 03/21/2019 4:51 PM
[2019-03-21 16:55] LABS: BACTERIA,URINE MANY /HPF; EPITHELIAL CELLS,URINE FEW /LPF
[2019-03-21 16:55] LABS: PARTIAL THROMBOPLASTIN TIME 35.3 seconds (23.8-35.5)
[2019-03-21 17:05] LABS: ALBUMIN 3.8 g/dL (3.5-5.0); ANION GAP 17.8 mmol/L (8-16); CALCIUM 9.6 mg/dL (8.4-10.2); CREATININE, SERUM 2.31 mg/dL (0.57-1.11); MAGNESIUM 2.2 MG/DL (1.3-2.1); POTASSIUM 4.8 mmol/L (3.5-5.1)
[2019-03-21 17:17] LABS: CREATINE KINASE MB 2.1 ng/mL (0-5.0)
[2019-03-21 17:20] LABS: B-TYPE NATRIURETIC PEPTIDE2 228.5 pg/mL (0-100)
--- NOTE | 2019-03-21 18:25 | Diagnostic Imaging Report ---
EXAM: CT Abdomen and Pelvis WITHOUT contrast INDICATION: Lower abdominal pain. Nausea. Fever ^abdominal pain, fever ,N V ^[id number] ^[id number] COMPARISON: 09/04/2018. TECHNIQUE: Abdomen and pelvis were scanned utilizing a multidetector helical scanner from the lung base to the pubic symphysis without administration of IV contrast. Absence of intravenous contrast decreases sensitivity for detection of focal lesions and vascular pathology. Coronal and sagittal reformations were obtained. Routine protocol was performed. IV CONTRAST: None ORAL CONTRAST: Water COMPLICATIONS: None RADIATION DOSE: Total DLP: 724.98 mGy*cm Estimated effective dose: (DLP x 0.015 x size factor) mSv CTDIvol has been reviewed. It is below the limits set by the Radiation Protocol Committee (RPC). Dose modulation, iterative reconstruction, and/or weight based adjustment of the mA/kV was utilized to reduce the radiation dose to as low as reasonably achievable. FINDINGS: LINES and TUBES: None. LOWER THORAX: Likely mild scarring/atelectasis at the lung bases HEPATOBILIARY: No focal hepatic lesions. No biliary ductal dilation. GALLBLADDER: No radio-opaque stones or sludge. No wall thickening. Prominent gallbladder. SPLEEN: No splenomegaly. PANCREAS: No focal masses or ductal dilatation. Fatty infiltration of the pancreas. ADRENALS: No adrenal nodules KIDNEYS/URETERS: No hydronephrosis. No stones. Bilateral renal cortical atrophy. 1.4 cm cystic lesion in the superior pole of the right kidney essentially unchanged. GI TRACT: No abnormal distention, wall thickening, or evidence of bowel obstruction. Appendix is normal. Scattered diverticulosis without evidence of diverticulitis PELVIC ORGANS/BLADDER: Unremarkable. LYMPH NODES: No lymphadenopathy. VESSELS: Scattered vascular calcification. PERITONEUM / RETROPERITONEUM: No free air or fluid. BONES: Scattered degenerative change. SOFT TISSUES: Unremarkable. IMPRESSION: Scattered diverticulosis without evidence of diverticulitis. Bilateral renal cortical atrophy. Mildly prominent/distended gallbladder. No definite evidence of acute cholecystitis. Signed by: Dr. Jonathan Armenta M.D. on 03/21/2019 6:22 PM
[2019-03-21] MEDS ORDERED: DEXTROSE 50% SYRINGE 50 ML IV PRN (19:15)
[2019-03-21] MEDS ORDERED: ONDANSETRON HCL INJ 2MG/ML 2ML 2 MG/ML VIAL IV PRN (19:15)
--- NOTE | 2019-03-21 20:02 | NUR ---
PT AWAKE ALERT SKIN W/D RESP NONLAB. NAD NOTED. PT REQUESTING FOOD, EXPLAINED NPO STATUS, VERBALIZED UNDERSTANDING.
[2019-03-21] MEDS: INSULIN REGULAR, HUMAN 100 UNIT/1 ML 3ML VIAL SQ SCH (21:00)
[2019-03-21] MEDS ORDERED: WARFARIN SODIUM3 MG PO ×2 (21:05)
[2019-03-21 22:00] VITALS: BP 141/65
--- NOTE | 2019-03-21 22:21 | Diagnostic Imaging Report ---
EXAM: Right Upper Quadrant Ultrasound INDICATION: ^distended GB ^[id number] ^[id number] COMPARISON: CT abdomen and pelvis without contrast 03/21/2019 TECHNIQUE: Transverse and longitudinal images of the right upper abdomen were obtained. FINDINGS: Exam is limited due to patient's body habitus, overlying bowel gas and inability to follow instructions due to pain Liver: Size: 8.9 cm in the right midclavicular line, normal Appearance: Normal echogenicity, smooth contour Mass: No focal masses Gallbladder: Stones/Sludge: No echogenic stones or sludge are identified. The gallbladder is hydropic, measuring 11.9 x 4.0 cm Wall: 0.4 cm Appearance: No pericholecystic fluid or hydrops. Sonographic Browning's Sign: Positive Bile Ducts: Intrahepatic Ducts: No dilatation Extrahepatic Ducts: Common bile duct measures 0.4 cm, no dilatation Pancreas: Visualized portions of the pancreatic neck and proximal body are normal. Kidneys: Length: Right 6.3 cm Echogenicity: Increased Collecting System: No hydronephrosis Stone: None Cyst/Mass: 1.1 x 0.8 and 1.8 x 1.2 cm cystic, anechoic lesions in the superior pole, consistent with simple cysts. Vessels: Aorta: Visualized portions are normal Inferior Vena Cava: Visualized portions are normal Main Portal Vein: 0.5 cm, normal size with hepatopetal flow. Free Fluid: No ascites or pleural effusion IMPRESSION: 1. Limited exam as described above. 2. Hydropic gallbladder with wall thickening and a positive sonographic Browning sign. No echogenic stones or sludge are identified, however, exam is limited and acute cholecystitis remains a consideration. Acalculous cholecystitis is also considered. 3. Atrophic right kidney. 2 simple cysts are noted in the superior pole. Signed by: Dr. Peter Kulkarni M.D. on 03/21/2019 10:18 PM
[2019-03-21] MEDS: METRONIDAZOLE 500MG/NS 100ML 100 ML IV SCH ×2 (22:45→23:40)
[2019-03-21] MEDS: PIPER-TAZ 3.375 GM 50 ML IV SCH (22:49)
[2019-03-21] MEDS: SODIUM CHLORIDE 0.9% 1000ML 1,000 ML IV SCH (22:49)
[2019-03-22] VITALS (8 sets, daily range): BP systolic 135–149; BP diastolic 64–89
--- NOTE | 2019-03-22 04:59 | NUR ---
H&P cc: abdominal pain HPI: 73yoF, PCP , developed abdominal pain and vomiting for 1 day; no fever. PMH: sepsis, MEHRDAD, UTI, Chr A.fib, HTN, DM2, HLD, Morbid obesity, DVT lower ext, hypothyroidism, Gout PSHx: unknown Allergies; see emr Fh/SH; ; no cig/etoh meds; see MAR ROS: no f/c/s/cp/sob/back pain/dizziness/vision changes/skin rash/MALAGON v/s; revd PE: nad anicteric ns1s2 mod bs soft nd; mild tenderness in RUQ; negative Browning's sign. no e/t awake; morton skin dry n. affect labs/meds; revd A/P: 73yoF Gallbladder wall thickening Diverticulosis Right kidney atrophy DM2 Chr A.fib Obesity BMI 35 Gout PLAN HIDA scan ordered IVF+abx+sx consulted hab1c/lipids HOLD coumadin; inr 1.87 Sam Mtz MD, PhD.
[2019-03-22] MEDS: PIPER-TAZ 3.375 GM 50 ML IV SCH ×3 (05:30→21:38)
[2019-03-22] MEDS ORDERED: AMLODIPINE BESYL5 MG PO (05:49)
[2019-03-22] MEDS ORDERED: tresiba SQ (06:02)
[2019-03-22] MEDS ORDERED: ASPIR-LOW81 MG PO (06:02)
[2019-03-22] MEDS ORDERED: LEVOTHYROXINE50 MCG PO (06:02)
[2019-03-22] MEDS ORDERED: METOPROLOL SUCC50 MG PO (06:02)
[2019-03-22 06:19] LABS: CREATINE KINASE MB 1.5 ng/mL (0-5.0)
[2019-03-22] MEDS: METRONIDAZOLE 500MG/NS 100ML 100 ML IV SCH ×3 (06:21→22:24)
[2019-03-22] MEDS ORDERED: METOPROLOL TARTRATE INJ 1 MG/ML VIAL IV PRN (07:00)
--- NOTE | 2019-03-22 07:12 | NUR ---
t asleep resp even and unlabored at this time no distress noted, pt aroused to name, pt has family member at bedside, bed alarm in place call light in reach pt npo at this time.
[2019-03-22 07:15] LABS: CHOL/HDL RATIO 2.3 (3.0-3.6)
[2019-03-22] MEDS: INSULIN REGULAR, HUMAN 100 UNIT/1 ML 3ML VIAL SQ SCH ×4 (07:30→21:00)
--- NOTE | 2019-03-22 10:45 | Consultation ---
DATE OF CONSULTATION: 03/22/2019 HISTORY OF PRESENT ILLNESS: The patient is a 73-year-old female, presenting to the emergency room with complaints of severe periumbilical pain. The patient says the pain is gone now. She has associated nausea and decreased appetite with vomiting. She says she has not had similar pains in the past. She does not have any back pain. She does not have any fever. Imaging in the emergency room revealed only findings on CT scan of thickened gallbladder and on ultrasound distended thickened gallbladder, but no stones were seen. PAST MEDICAL HISTORY: Significant for hypertension, hypothyroidism, hypercholesterolemia, gout, and she has diabetes, hypothyroidism, atrial fibrillation, PAST SURGICAL HISTORY: Only previous surgery is hysterectomy. ALLERGIES: SHE IS ALLERGY TO CODEINE. MEDICATIONS: At home were allopurinol, amlodipine, aspirin, calcitriol, latanoprost eye drops, levothyroxine, metoprolol, Crestor, warfarin, and Tresiba. FAMILY HISTORY: Noncontributory. SOCIAL HISTORY: The patient does not smoke cigarettes or drink alcohol. REVIEW OF SYSTEMS: As stated above. She has had no fever, no weight loss. No back pain. No chest pain. PHYSICAL EXAMINATION: GENERAL: The patient is awake and alert, in no distress. VITAL SIGNS: At this time, essentially normal. HEENT: Reveals no scleral icterus. NECK: Has no masses. LUNGS: Equal breath sounds are clear bilaterally. CARDIAC: Regular rhythm. ABDOMEN: Soft. There is no distention. No mass. No hernias. No organomegaly. EXTREMITIES: Have no edema. NEUROLOGIC: Grossly intact. LABS TEST: White blood count 12.2 on admission, hemoglobin 13, and hematocrit 41. Chemistries revealed elevated BUN 59, creatinine 2.31. Liver function tests were normal. Lipase is normal. ASSESSMENT: A 73-year-old female, periumbilical pain has now resolved, this could be secondary to gallbladder disease as judged by the imaging, pending evaluate further with a HIDA scan. There is no signs of acute surgical abdomen or peritonitis at this time. No findings that would warrant immediate surgical intervention. Thank you for asking me to see, Ms. Villareal. MD ALEXI Resendiz/GILL /[id number]
--- NOTE | 2019-03-22 11:20 | NUR ---
pt b/s 66, 1/2 amp of d/50 given. at this time.
--- NOTE | 2019-03-22 14:11 | Consultation ---
DATE OF CONSULTATION: 03/22/2019 HISTORY OF PRESENT ILLNESS: A 73-year-old female known to our Nephrology Service, has underlying history of diabetes, diabetic kidney disease with chronic kidney disease stage 4, history of congestive heart failure, atrial fibrillation, hypothyroidism, and history of prior DVT on Coumadin, has been admitted with epigastric and periumbilical pain. She has had prior hysterectomy. She is seen by Surgery. Currently lying supine. Denies any nausea, vomiting, headache, fever, chills, chest pain, or shortness of breath. The patient's daughter by bedside. Chest x-ray report noted. CT abdomen and pelvis which is done without contrast shows scattered diverticulosis without evidence of diverticulitis, bilateral renal cortical atrophy, mildly prominent distended gallbladder. No evidence of acute cholecystitis. SOCIAL HISTORY: She does not smoke or drink. FAMILY HISTORY: Significant for diabetes. ALLERGIES: TO CODEINE. MEDICATIONS: Currently on metronidazole 500 IV q.8, normal saline at 75 mL an hour, piperacillin and tazobactam IV q.8, Xalatan 1 mL in the right eye and she is also getting insulin subcutaneous, levothyroxine 50 mcg daily, ondansetron p.r.n., and Zofran p.r.n. PHYSICAL EXAMINATION: GENERAL: Awake, alert, and oriented x3. No apparent distress. VITAL SIGNS: Blood pressure 141/65, pulse rate 84, afebrile, oxygen saturation 96% on room air. HEAD AND NECK: Cornea clear. Mucosa moist. Neck veins flat. LUNGS: Relatively clear. HEART: S1 and S2 audible. ABDOMEN: Soft and nontender. No apparent visceromegaly. EXTREMITIES: Lower extremity, no edema. LABORATORY TEST: Shows white count 12.2 and hemoglobin 13.2. Labs show sodium 137, potassium 4.8, bicarb 20, creatinine 2.3, and magnesium 2.2. IMPRESSION AND PLAN: Underlying diabetic nephropathy, [id number] kidney failure, distal renal tubular acidosis. We will obtain spot urine protein/creatinine ratio. I will obtain clinic records. Apply knee-high ODILIA hoses. Start sodium bicarbonate tablets. Resume blood pressure medications. Place on renal/diabetic diet. MD ZOIE Gonzáles/GILL /[id number]
[2019-03-22] MEDS: SODIUM CHLORIDE 0.9% 1000ML 1,000 ML IV SCH (14:21)
[2019-03-22 15:05] LABS: CREATINE KINASE MB 2.2 ng/mL (0-5.0)
--- NOTE | 2019-03-22 16:30 | NUR ---
pt npo at this time, 1/2 amp of d/.50 given iv push , for b/s 63, pt tolerated well, pt alert and asymptomatic. daughter at bedside.
[2019-03-22] MEDS: SODIUM BICARBONATE 650 MG TAB PO SCH (17:45)
--- NOTE | 2019-03-22 17:45 | NUR ---
pt off unit for procedure,
--- NOTE | 2019-03-22 18:00 | NUR ---
pt back on unit, [place] with HIDA scan, will have reschedule, 1pm 03/23/2019. pt to be npo after breakfast.
--- NOTE | 2019-03-22 19:40 | NUR ---
report given to oncoming nurse. pt stable.
--- NOTE | 2019-03-22 19:41 | NUR ---
PT IS RESTING IN BED. RESPIRATION IS EVEN AND UNLABORED, NO DISTRESS NOTED. BED IN THE LOWEST POSITION, LOCKED, BED ALARM ON, AND CALL LIGHT WITHIN REACH. WILL CONTINUE TO MONITOR.
[2019-03-22] MEDS: LATANOPROST(OPTH) 2.5 ML BTL OU SCH (21:37)
[2019-03-23] VITALS (7 sets, daily range): BP systolic 114–146; BP diastolic 56–68
[2019-03-23] MEDS: SODIUM CHLORIDE 0.9% 1000ML 1,000 ML IV SCH ×2 (00:25→13:45)
[2019-03-23] MEDS: LEVOTHYROXINE SODIUM 50 MCG TAB PO SCH (05:26)
[2019-03-23] MEDS: PIPER-TAZ 3.375 GM 50 ML IV SCH ×3 (05:26→22:53)
[2019-03-23] MEDS: METRONIDAZOLE 500MG/NS 100ML 100 ML IV SCH ×3 (06:39→21:51)
--- NOTE | 2019-03-23 06:44 | NUR ---
NOTIFY DR RAYMUNDO THAT BLOOD CULTURE CAME BACK POSITIVE. NO NEW ORDERS RECEIVED. WILL CONTINUE TO MONITOR.
--- NOTE | 2019-03-23 06:52 | NUR ---
IM- progress note O/N no events ROS: no f/c/s/cp/sob/back pain/dizziness/vision changes/skin rash/MALAGON v/s; revd PE: nad anicteric ns1s2 mod bs soft nd; mild tenderness in RUQ; negative Browning's sign. no e/t awake; morton skin dry n. affect labs/meds; revd A/P: 73yoF Gallbladder wall thickening Diverticulosis Right kidney atrophy DM2 Chr A.fib Obesity BMI 35 Gout PLAN HIDA scan ordered IVF+abx+sx consulted hab1c/lipids HOLD coumadin; inr 1.87 03/23 Hba1c/LDL 6.6/55; check labs; HIDA pending; GPC in blood likely contaminant; GNR UTI; cont abx Sam Mtz MD, PhD.
[2019-03-23 07:09] LABS: ALBUMIN 2.9 g/dL (3.5-5.0); ANION GAP 16.1 mmol/L (8-16); CALCIUM 8.7 mg/dL (8.4-10.2); CREATININE, SERUM 2.29 mg/dL (0.57-1.11); POTASSIUM 4.1 mmol/L (3.5-5.1)
[2019-03-23] MEDS: INSULIN REGULAR, HUMAN 100 UNIT/1 ML 3ML VIAL SQ SCH ×4 (07:30→21:00)
[2019-03-23 08:57] LABS: BASOPHILS % 0.8 % (0.0-1.0); EOSINOPHILS # (AUTO) 0.2 (0.0-0.4); HEMATOCRIT 37.5 % (34.2-44.1); HEMOGLOBIN 11.8 g/dL (12.0-16.0); LYMPHOCYTES # (AUTO) 0.8 (1.0-3.2); LYMPHOCYTES % 20.9 % (18.0-39.1); MEAN CORPUSCULAR HEMOGLOBIN 29.6 pg (28-32); MEAN CORPUSCULAR HGB CONC 31.5 g/dL (31-35); MONOCYTES # (AUTO) 0.6 (0.2-0.8); MONOCYTES % 14.4 % (4.4-11.3); NEUTROPHILS # (AUTO) 2.3 (2.1-6.9); NEUTROPHILS % 58.6 % (38.7-80.0); PLATELET COUNT 141 x10e3/uL (140-360); RED BLOOD COUNT 3.99 x10e6/uL (3.6-5.1); RED CELL DISTRIBUTION WIDTH 15.5 % (11.7-14.4)
[2019-03-23] MEDS: SODIUM BICARBONATE 650 MG TAB PO SCH ×2 (09:16→17:03)
--- NOTE | 2019-03-23 20:45 | NUR ---
PATIENT C/O PAIN TO RIGHT FA IV. D/C IV. START NEW IV TO LEFT HAND 20G. PATIENT TOLERATE WELL
--- NOTE | 2019-03-23 21:36 | Diagnostic Imaging Report ---
Hepatobiliary Scan with Gallbladder Ejection Fraction Clinical information: R10.11 RUQ abdominal pain Report: Following intravenous administration of 5.8 millicuries of Tc-99m mebrofenin, dynamic images of the abdomen in the anterior projection were obtained through 60 minutes. Sincalide (CCK analog) 1.7 micrograms was administered intravenously over 30 minutes with additional imaging for determination of gallbladder ejection fraction. Perfusion to the liver is normal. Extraction of tracer from the blood pool by the liver parenchyma is normal. Tracer is seen promptly within the biliary tract. The gallbladder begins to fill by 30 minutes post-injection of tracer and fills adequately. Tracer is seen in the small bowel by 24 minutes. The gallbladder ejection fraction with administration of sincalide is 74% (normal greater than 40%). Impression: 1. Filling of the gallbladder excludes the diagnosis of acute cystic duct obstruction/acute cholecystitis. 2. Normal gallbladder ejection fraction of 74% does not support the clinical diagnosis of chronic cholecystitis/gallbladder dyskinesia. Signed by: Dr. Nahomy Carmen M.D. on 03/23/2019 9:32 PM
[2019-03-23] MEDS: LATANOPROST(OPTH) 2.5 ML BTL OU SCH (22:00)
[2019-03-24] VITALS (7 sets, daily range): BP systolic 112–169; BP diastolic 59–93
[2019-03-24] MEDS: SODIUM CHLORIDE 0.9% 1000ML 1,000 ML IV SCH ×2 (01:15→14:56)
[2019-03-24] MEDS: LEVOTHYROXINE SODIUM 50 MCG TAB PO SCH (05:06)
[2019-03-24] MEDS: METRONIDAZOLE 500MG/NS 100ML 100 ML IV SCH ×3 (05:06→21:35)
[2019-03-24] MEDS: PIPER-TAZ 3.375 GM 50 ML IV SCH ×3 (05:57→21:00)
[2019-03-24] MEDS ORDERED: CHOLESTYRAMINE 4 GM PACKET PO PRN (06:30)
--- NOTE | 2019-03-24 06:34 | NUR ---
IM- progress note O/N no events ROS: no f/c/s/cp/sob/back pain/dizziness/vision changes/skin rash/MALAGON v/s; revd PE: nad anicteric ns1s2 mod bs soft nd; mild tenderness in RUQ; negative Browning's sign. no e/t awake; morton skin dry n. affect labs/meds; revd A/P: 73yoF Gallbladder wall thickening Diverticulosis Right kidney atrophy DM2 Chr A.fib Obesity BMI 35 Gout PLAN HIDA scan ordered IVF+abx+sx consulted hab1c/lipids HOLD coumadin; inr 1.87 03/23 Hba1c/LDL 6.6/55; check labs; HIDA pending; GPC in blood likely contaminant; GNR UTI; cont abx 03/24 Diarrhea; Klebsiella UTI; HIDA scan normal; cont supportive care; check labs; Sam Mtz MD, PhD.
[2019-03-24 07:19] LABS: BASOPHILS % 0.3 % (0.0-1.0); EOSINOPHILS # (AUTO) 0.2 (0.0-0.4); EOSINOPHILS % 5.1 % (0.0-6.0); LYMPHOCYTES # (AUTO) 0.9 (1.0-3.2); LYMPHOCYTES % 24.2 % (18.0-39.1); MEAN CORPUSCULAR HEMOGLOBIN 29.8 pg (28-32); MEAN CORPUSCULAR HGB CONC 32.4 g/dL (31-35); MEAN CORPUSCULAR VOLUME 92.1 fL (81-99); MONOCYTES # (AUTO) 0.5 (0.2-0.8); MONOCYTES % 13.2 % (4.4-11.3); NEUTROPHILS # (AUTO) 2.1 (2.1-6.9); NEUTROPHILS % 56.9 % (38.7-80.0); PLATELET COUNT 132 x10e3/uL (140-360); RED BLOOD COUNT 3.69 x10e6/uL (3.6-5.1); RED CELL DISTRIBUTION WIDTH 15.3 % (11.7-14.4)
[2019-03-24] MEDS: INSULIN REGULAR, HUMAN 100 UNIT/1 ML 3ML VIAL SQ SCH ×4 (07:30→21:00)
[2019-03-24 07:52] LABS: ANION GAP 15.9 mmol/L (8-16); CALCIUM 8.7 mg/dL (8.4-10.2); CREATININE, SERUM 2.2 mg/dL (0.57-1.11); POTASSIUM 3.9 mmol/L (3.5-5.1)
[2019-03-24] MEDS: SODIUM BICARBONATE 650 MG TAB PO SCH ×2 (09:56→17:01)
[2019-03-24] MEDS ORDERED: LOPERAMIDE HCL 2 MG CAP PO PRN (13:00)
[2019-03-24] MEDS: LATANOPROST(OPTH) 2.5 ML BTL OU SCH (21:25)
[2019-03-25] VITALS: BP 135/68
[2019-03-25 04:00] VITALS: BP 144/71
[2019-03-25] MEDS: LEVOTHYROXINE SODIUM 50 MCG TAB PO SCH (05:30)
[2019-03-25] MEDS: SODIUM CHLORIDE 0.9% 1000ML 1,000 ML IV SCH (05:30)
[2019-03-25] MEDS: PIPER-TAZ 3.375 GM 50 ML IV SCH (05:30)
[2019-03-25] MEDS: METRONIDAZOLE 500MG/NS 100ML 100 ML IV SCH (06:00)
--- NOTE | 2019-03-25 07:02 | NUR ---
D/C summary: Principal Dx: Gallbladder wall thickening but normal HIDA Klebsiella and Citrobacter UTI Blood contamination with coag neg staph Secondary Dx: CKD4 due to Dm2 Diverticulosis Right kidney atrophy Chr A.fib Obesity BMI 35 Gout PLAN HIDA scan ordered IVF+abx+sx consulted hab1c/lipids HOLD coumadin; inr 1.87 03/23 Hba1c/LDL 6.6/55; check labs; HIDA pending; GPC in blood likely contaminant; GNR UTI; cont abx 03/24 Diarrhea; Klebsiella UTI; HIDA scan normal; cont supportive care; check labs; d/c home with keflex for 7 days stable f/u pcp 1 week and nephrology 2 weeks d/c>35mins Sam Mtz MD, PhD.
[2019-03-25] MEDS ORDERED: IMODIUM2 MG PO ×2 (07:05→11:01)
[2019-03-25] MEDS ORDERED: SODIUM BICARBO650 MG PO ×2 (07:05→11:01)
[2019-03-25] MEDS ORDERED: KEFLEX500 MG PO ×2 (07:05→10:59)
[2019-03-25] MEDS ORDERED: FLAGYL500 MG PO (07:05)
[2019-03-25] MEDS: INSULIN REGULAR, HUMAN 100 UNIT/1 ML 3ML VIAL SQ SCH ×2 (07:30→11:30)
[2019-03-25 08:00] VITALS: BP 114/68
[2019-03-25] MEDS: SODIUM BICARBONATE 650 MG TAB PO SCH (09:00)
[2019-03-25] MEDS ORDERED: FLAGYL250 MG PO (11:00)
--- NOTE | 2019-03-25 12:45 | NUR ---
Patient discharged, IV line removed with cath tip in place, provided with discharge instructions and prescriptions, contacts for f/u appt given. Patient discharged at 12:35pm
[2019-03-25 13:56] VITALS: BP 114/68
== END 2019-03-25 12:45 | disposition home or self-care (01) | DRG 444 ==
LOC: ER 14:59 → ERHOLD 20:39 → MED/SURG2 22:03
PROVIDERS: ADMIT Internal Medicine; ATTEND Internal Medicine
DX: K82.8 Other specified diseases of gallbladder (principal); N17.0 Acute kidney failure with tubular necrosis; N39.0 Urinary tract infection, site not specified; N18.4 Chronic kidney disease, stage 4 (severe); I48.2 Chronic atrial fibrillation; Z79.01 Long term (current) use of anticoagulants; Z86.718 Personal history of other venous thrombosis and embolism; E03.9 Hypothyroidism, unspecified; M10.9 Gout, unspecified; E11.9 Type 2 diabetes mellitus without complications; E66.01 Morbid (severe) obesity due to excess calories; Z68.35 Body mass index [BMI] 35.0-35.9, adult; K57.90 Diverticulosis of intestine, part unspecified, without perforation or abscess without bleeding; N26.1 Atrophy of kidney (terminal); B96.1 Klebsiella pneumoniae [K. pneumoniae] as the cause of diseases classified elsewhere; B96.89 Other specified bacterial agents as the cause of diseases classified elsewhere; E11.22 Type 2 diabetes mellitus with diabetic chronic kidney disease; I12.9 Hypertensive chronic kidney disease with stage 1 through stage 4 chronic kidney disease, or unspecified chronic kidney disease
CPT/HCPCS: 36415; 71045; 74176; 76705; 78227; 80048; 80053; 80061; 81001; 82150; 82550; 82553; 82948; 83036; 83605; 83690; 83735; 83880; 84484; 85025; 85610; 85730; 87040; 87071; 87086; 87186; 87205; 87493; 93005; 99284; A9537; J2405; J2543; J7030; J7040; J7799

== ENCOUNTER 2020-06-21 06:00 | Emergency (ER) | payer MEDICARE ==
[~2020-06-21] VITALS: Ht 157.5 cm; Wt 86.6 kg
[~2020-06-21 06:00] MED LIST changes: +AMLODIPINE BESYL5 MG PO; +ASPIR-LOW81 MG PO; +FLAGYL250 MG PO; +FLAGYL500 MG PO; +IMODIUM2 MG PO; +KEFLEX500 MG PO; +LEVOTHYROXINE50 MCG PO; +SODIUM BICARBO650 MG PO; +WARFARIN SODIUM3 MG PO; +tresiba SQ
[2020-06-21] MEDS ORDERED: SODIUM CHLORIDE 0.9% 1000ML 1,000 ML IV STA (06:05)
[2020-06-21] MEDS ORDERED: ONDANSETRON HCL 4 MG ORAL DISINTEGRATING TAB PO STA (06:36)
[2020-06-21 07:02] LABS: COLOR,URINE YELLOW (YELLOW)
[2020-06-21 07:03] LABS: CLARITY,URINE HAZY (CLEAR); KETONES,URINE NEGATIVE (NEGATIVE); LEUKOCYTE ESTERASE ,URINE TRACE (NEGATIVE); NITRITE,URINE NEGATIVE (NEGATIVE); PROTEIN,URINE DIPSTICK >=300 (NEGATIVE); URINE UROBILINOGEN 0.2 mg/dL (0.2 - 1)
[2020-06-21 07:18] LABS: BACTERIA,URINE MANY /HPF; EPITHELIAL CELLS,URINE FEW /LPF; WBC,URINE (MAN) 21-50 /HPF (0-5)
== END 2020-06-21 07:30 | disposition home or self-care (01) ==
LOC: ER 06:24
DX: R30.0 Dysuria (principal); N39.0 Urinary tract infection, site not specified; I10 Essential (primary) hypertension; E11.9 Type 2 diabetes mellitus without complications; E78.5 Hyperlipidemia, unspecified; I48.91 Unspecified atrial fibrillation; Z86.718 Personal history of other venous thrombosis and embolism
CPT/HCPCS: 81001; 99283; Q0162

== ENCOUNTER 2020-06-27 08:44 | Emergency (ER) | payer MEDICARE ==
[~2020-06-27] VITALS: Ht 157.5 cm; Wt 86.6 kg
[2020-06-27] MEDS ORDERED: ONDANSETRON HCL INJ 2MG/ML 2ML 2 MG/ML VIAL IV STA (08:47)
[2020-06-27] MEDS ORDERED: SODIUM CHLORIDE 0.9% 500ML 500 ML IV STA (08:47)
[2020-06-27] MEDS ORDERED: PIPER-TAZ 3.375 GM 50 ML IV STA (08:56)
[2020-06-27 09:09] LABS: BASOPHILS % 0.3 % (0.0-1.0); HEMATOCRIT 37.9 % (34.2-44.1); HEMOGLOBIN 12.4 g/dL (12.0-16.0); MEAN CORPUSCULAR HEMOGLOBIN 28.6 pg (28-32); MEAN CORPUSCULAR HGB CONC 32.7 g/dL (31-35); MEAN CORPUSCULAR VOLUME 87.5 fL (81-99); MONOCYTES # (AUTO) 0.5 (0.2-0.8); MONOCYTES % 4.3 % (4.4-11.3); NEUTROPHILS # (AUTO) 9.5 (2.1-6.9); NEUTROPHILS % 84.9 % (38.7-80.0); PLATELET COUNT 260 x10e3/uL (140-360); RED BLOOD COUNT 4.33 x10e6/uL (3.6-5.1); RED CELL DISTRIBUTION WIDTH 15.5 % (11.7-14.4)
[2020-06-27 09:32] LABS: ALBUMIN 2.8 g/dL (3.5-5.0); ALBUMIN/GLOBULIN RATIO 0.6 (0.8-2.0); CALCIUM 7.9 mg/dL (8.4-10.2); CREATININE, SERUM 3.29 mg/dL (0.57-1.11)
[2020-06-27 09:34] LABS: ANION GAP 21.8 mmol/L (8-16)
[2020-06-27 09:35] LABS: POTASSIUM 5.8 mmol/L (3.5-5.1)
[2020-06-27 09:40] LABS: CREATINE KINASE MB 2.5 ng/mL (0-5.0)
[2020-06-27] MEDS ORDERED: SODIUM CHLORIDE 0.9% 1000ML 1,000 ML IV STA ×2 (09:49→09:50)
[2020-06-27] MEDS ORDERED: SOD POLYSTYRENE SULFONATE SUSP 15 GM/60 ML BTL PO STA (10:00)
[2020-06-27] MEDS ORDERED: CALCIUM GLUCONATE 10% INJ 0.465 MEQ/ML VIAL IV STA (10:00)
[2020-06-27] MEDS ORDERED: DEXTROSE 50% SYRINGE 50 ML IV STA (10:00)
[2020-06-27] MEDS ORDERED: SODIUM BICARBONATE 8.4% INJ 50 ML SYR IV STA (10:00)
[2020-06-27] MEDS ORDERED: CALCIUM GLUCONATE 10% INJ 0.465 MEQ/ML VIAL ONE (10:32)
[2020-06-27] MEDS ORDERED: CALCIUM GLUCONATE 10% INJ 4.65 MEQ in SODIUM CHLORIDE 0.9% 50ML 50 ML IV ONE (10:40)
[2020-06-27] MEDS ORDERED: LEVETIRACETAM 500MG/5ML VIAL 500 MG in SODIUM CHLORIDE 0.9% 100 ML 100 ML IV SCH (10:45)
[2020-06-27] MEDS ORDERED: LEVETIRACETAM 500 MG/5 ML VIAL IV ONE (10:46)
[2020-06-27] MEDS ORDERED: INSULIN REGULAR, HUMAN 100 UNIT/1 ML 3ML VIAL ONE (10:46)
[2020-06-27] MEDS ORDERED: PIPER-TAZ 3.375 GM 50 ML ONE (10:47)
[2020-06-27] MEDS ORDERED: INSULIN REGULAR, HUMAN 100 UNIT/1 ML 3ML VIAL IV ONE (11:00)
[2020-06-27 11:24] LABS: CLARITY,URINE CLEAR (CLEAR); COLOR,URINE YELLOW (YELLOW); KETONES,URINE NEGATIVE (NEGATIVE); LEUKOCYTE ESTERASE ,URINE NEGATIVE (NEGATIVE); NITRITE,URINE POSITIVE (NEGATIVE); PROTEIN,URINE DIPSTICK >=300 (NEGATIVE); URINE UROBILINOGEN 0.2 mg/dL (0.2 - 1)
[2020-06-27 11:25] LABS: BACTERIA,URINE MANY /HPF
[2020-06-27 12:16] VITALS: BP 83/62
== END 2020-06-27 12:18 | disposition other institution (70) ==
LOC: ER 09:01
DX: U07.1 COVID-19 (principal); S06.6X0A Traumatic subarachnoid hemorrhage without loss of consciousness, initial encounter; N19 Unspecified kidney failure; I48.20 Chronic atrial fibrillation, unspecified; E87.5 Hyperkalemia; W18.30XA Fall on same level, unspecified, initial encounter; I10 Essential (primary) hypertension; E11.65 Type 2 diabetes mellitus with hyperglycemia; E78.5 Hyperlipidemia, unspecified; R53.1 Weakness; R53.81 Other malaise
CPT/HCPCS: 36415; 36555; 51700; 70450; 70486; 71250; 72125; 80053; 81001; 82550; 82553; 83880; 84484; 85025; 99285; J0610; J1817; J1953; J2405; J2543; J7030; J7040; J7799; U0002; 36556

== ENCOUNTER 2020-08-30 17:15 | Inpatient (IN) | payer MEDICARE ==
[~2020-08-30] VITALS: Ht 162.6 cm; Wt 102.1 kg
[2020-08-30] MEDS ORDERED: AMIODARONE HCL 150MG 100 ML IV ONE (17:45)
[2020-08-30] MEDS ORDERED: AMIODARONE HCL 360MG 200 ML IV SCH ×2 (17:45→18:00)
[2020-08-30] MEDS ORDERED: AMIODARONE 900MG 500 ML IV SCH (18:00)
[2020-08-30 18:15] LABS: BASOPHILS % 0.5 % (0.0-1.0); EOSINOPHILS # (AUTO) 0.1 (0.0-0.4); EOSINOPHILS % 1.8 % (0.0-6.0); LYMPHOCYTES % 25.6 % (18.0-39.1); MEAN CORPUSCULAR HGB CONC 28.8 g/dL (31-35); MEAN CORPUSCULAR VOLUME 107.6 fL (81-99); MONOCYTES # (AUTO) 0.9 (0.2-0.8); MONOCYTES % 11.7 % (4.4-11.3); NEUTROPHILS # (AUTO) 4.8 (2.1-6.9); NEUTROPHILS % 59.4 % (38.7-80.0); PLATELET COUNT 373 x10e3/uL (140-360); RED BLOOD COUNT 1.45 x10e6/uL (3.6-5.1); RED CELL DISTRIBUTION WIDTH 22.1 % (11.7-14.4)
[2020-08-30 18:16] LABS: HEMATOCRIT 15.6 % (34.2-44.1)
[2020-08-30 18:17] LABS: HEMOGLOBIN 4.5 g/dL (12.0-16.0)
[2020-08-30] MEDS: AMIODARONE 900MG 500 ML IV SCH (18:20)
[2020-08-30 18:26] LABS: INR 10.87; PARTIAL THROMBOPLASTIN TIME 117.4 seconds (23.8-35.5)
[2020-08-30 18:30] LABS: ALBUMIN 2.4 g/dL (3.5-5.0); ALBUMIN/GLOBULIN RATIO 0.9 (0.8-2.0); ALKALINE PHOSPHATASE 67 IU/L (40-150); BLOOD UREA NITROGEN 53 mg/dL (7-26); BUN/CREATININE RATIO 29 (6-25); CALCIUM 7.8 mg/dL (8.4-10.2); CARBON DIOXIDE 22 mmol/L (22-29); CHLORIDE 104 mmol/L (98-107); CREATINE KINASE 26 IU/L (29-168); CREATININE, SERUM 1.85 mg/dL (0.57-1.11); EST GLOMERULAR FILTRATION RATE 27 ML/MIN (60-); GLUCOSE 121 mg/dL (74-118); SODIUM 136 mmol/L (136-145)
[2020-08-30] MEDS ORDERED: SODIUM CHLORIDE 0.9% 250ML 250 ML IV ONE (18:30)
[2020-08-30] MEDS ORDERED: PHYTONADIONE 10 MG/ML AMP SQ ONE (18:30)
[2020-08-30 18:35] LABS: ALANINE AMINOTRANSFERASE < 6 IU/L (0-55)
[2020-08-30 19:22] LABS: ANISOCYTOSIS SLIGHT; HYPOCHROMASIA SLIGHT; POIKILOCYTOSIS SLIGHT; POLYCHROMASIA MODERATE
[2020-08-30 19:23] LABS: PLATELET ESTIMATE ADEQUATE; PLATELET MORPHOLOGY COMMENT FEW GIANT
[2020-08-30] MEDS: CEFTRIAXONE SOD 1 GM in SODIUM CHLORIDE 0.9% 50ML 50 ML IV SCH (21:45)
[2020-08-30] MEDS ORDERED: ONDANSETRON HCL INJ 2MG/ML 2ML 2 MG/ML VIAL IV PRN (22:00)
[2020-08-30] MEDS ORDERED: DEXTROSE 50% SYRINGE 50 ML IV PRN (22:00)
[2020-08-30] MEDS ORDERED: SODIUM CHLORIDE 0.9% 1000ML 1,000 ML IV ONE (22:00)
[2020-08-31] MEDS: AMIODARONE 900MG 500 ML IV SCH
[2020-08-31] MEDS ORDERED: ACETAMINOPHEN 325 MG TAB PO PRN (00:45)
[2020-08-31] MEDS ORDERED: SODIUM CHLORIDE 0.9% 250ML 250 ML ONE (01:34)
[2020-08-31] MEDS ORDERED: SODIUM CHLORIDE 0.9% 1000ML 1,000 ML ONE (04:15)
[2020-08-31 06:36] LABS: BASOPHILS % 0.5 % (0.0-1.0); EOSINOPHILS % 0.4 % (0.0-6.0); LYMPHOCYTES # (AUTO) 1.5 (1.0-3.2); LYMPHOCYTES % 19.6 % (18.0-39.1); MEAN CORPUSCULAR HEMOGLOBIN 31.3 pg (28-32); MEAN CORPUSCULAR HGB CONC 32.2 g/dL (31-35); MEAN CORPUSCULAR VOLUME 97.1 fL (81-99); MONOCYTES # (AUTO) 0.8 (0.2-0.8); MONOCYTES % 11.1 % (4.4-11.3); NEUTROPHILS % 67.3 % (38.7-80.0); PLATELET COUNT 284 x10e3/uL (140-360); RED BLOOD COUNT 2.08 x10e6/uL (3.6-5.1)
[2020-08-31 06:43] LABS: HEMOGLOBIN 6.5 g/dL (12.0-16.0)
[2020-08-31 06:44] LABS: HEMATOCRIT 20.2 % (34.2-44.1)
[2020-08-31 06:57] LABS: ALBUMIN 2.7 g/dL (3.5-5.0); ALBUMIN/GLOBULIN RATIO 0.9 (0.8-2.0); ANION GAP 14.8 mmol/L (8-16); CALCIUM 7.8 mg/dL (8.4-10.2); CREATININE, SERUM 1.68 mg/dL (0.57-1.11); POTASSIUM 3.8 mmol/L (3.5-5.1)
[2020-08-31] MEDS ORDERED: SODIUM CHLORIDE 0.9% 250ML 250 ML IV ONE (07:00)
[2020-08-31 07:04] LABS: CREATINE KINASE MB 1.2 ng/mL (0-5.0)
[2020-08-31 07:13] LABS: INR 1.86; PROTHROMBIN TIME 22.9 seconds (11.9-14.5)
[2020-08-31 07:29] LABS: CHOL/HDL RATIO 4.4 (3.0-3.6)
[2020-08-31 07:43] LABS: FERRITIN 142.93 ng/mL (4.63-204.00); THYROID STIMULATING HORMONE 1.898 uIU/mL (0.350-4.940)
[2020-08-31] MEDS: INSULIN REGULAR, HUMAN 100 UNIT/1 ML 3ML VIAL SQ SCH ×4 (08:05→21:00)
[2020-08-31 09:54] LABS: POLYCHROMASIA FEW
[2020-08-31 09:55] LABS: ANISOCYTOSIS MODERATE; PLATELET ESTIMATE ADEQUATE; PLATELET MORPHOLOGY COMMENT NORMAL
[2020-08-31 09:56] LABS: MICROCYTOSIS SLIGHT; RBC MORPHOLOGY COMMENT ABNORMAL
[2020-08-31] MEDS: PANTOPRAZOLE 40 MG 10ML VIAL IV SCH ×2 (10:22→18:30)
[2020-08-31 15:46] LABS: BODY FLUID COLOR RED; BODY FLUID TYPE PLEURAL
[2020-08-31 15:47] LABS: BODY FLUID APPEARANCE TURBID
[2020-08-31 15:48] LABS: RBC,BODY FLUID 1082624 cells/uL; WBC,BODY FLUID 15444 cells/uL
[2020-08-31 15:56] LABS: BASOPHILS # (AUTO) 0.1 (0.0-0.1); BASOPHILS % 0.6 % (0.0-1.0); EOSINOPHILS # (AUTO) 0.1 (0.0-0.4); EOSINOPHILS % 0.6 % (0.0-6.0); HEMATOCRIT 28.6 % (34.2-44.1); HEMOGLOBIN 9.4 g/dL (12.0-16.0); LYMPHOCYTES # (AUTO) 1.3 (1.0-3.2); LYMPHOCYTES % 16.2 % (18.0-39.1); MEAN CORPUSCULAR HEMOGLOBIN 29.8 pg (28-32); MEAN CORPUSCULAR HGB CONC 32.9 g/dL (31-35); MEAN CORPUSCULAR VOLUME 90.8 fL (81-99); MONOCYTES # (AUTO) 0.9 (0.2-0.8); MONOCYTES % 11.2 % (4.4-11.3); NEUTROPHILS # (AUTO) 5.5 (2.1-6.9); NEUTROPHILS % 70.6 % (38.7-80.0); PLATELET COUNT 284 x10e3/uL (140-360); RED BLOOD COUNT 3.15 x10e6/uL (3.6-5.1); RED CELL DISTRIBUTION WIDTH 19.7 % (11.7-14.4)
[2020-08-31 16:06] LABS: INR 1.93; PROTHROMBIN TIME 23.6 seconds (11.9-14.5)
[2020-08-31 16:07] LABS: PARTIAL THROMBOPLASTIN TIME 44.7 seconds (23.8-35.5)
[2020-08-31 16:30] LABS: CREATINE KINASE MB 1.9 ng/mL (0-5.0)
[2020-08-31 16:42] LABS: LYMPHOCYTES,BODY FLUID 11 %; MONO/MACROPHG,BODY FLUID 9 %; NEUTROPHILS,BODY FLUID 80 %
[2020-08-31] MEDS ORDERED: HYDRALAZINE HCL 20 MG/ML VIAL ONE (19:49)
[2020-08-31] MEDS: AZITHROMYCIN 500MG/NS 250 ML 250 ML IV SCH ×2 (20:45)
[2020-08-31] MEDS: AMIODARONE HCL 200 MG TAB PO SCH (20:54)
[2020-08-31] MEDS: CEFTRIAXONE SOD 1 GM in SODIUM CHLORIDE 0.9% 50ML 50 ML IV SCH (21:00)
[2020-08-31 22:00] VITALS: BP 109/51
[2020-09-01] VITALS (8 sets, daily range): BP systolic 130–136; BP diastolic 66–99
[2020-09-01] MEDS ORDERED: CEFTRIAXONE SOD 1 GM VIAL ONE ×2 (00:27→20:56)
[2020-09-01] MEDS: LEVOTHYROXINE SODIUM 50 MCG TAB PO SCH (06:00)
[2020-09-01 06:28] LABS: BASOPHILS # (AUTO) 0.1 (0.0-0.1); BASOPHILS % 0.9 % (0.0-1.0); EOSINOPHILS # (AUTO) 0.2 (0.0-0.4); EOSINOPHILS % 3.5 % (0.0-6.0); HEMATOCRIT 30.6 % (34.2-44.1); LYMPHOCYTES # (AUTO) 1.3 (1.0-3.2); LYMPHOCYTES % 18.2 % (18.0-39.1); MEAN CORPUSCULAR HEMOGLOBIN 32.2 pg (28-32); MEAN CORPUSCULAR HGB CONC 32.7 g/dL (31-35); MEAN CORPUSCULAR VOLUME 98.4 fL (81-99); MONOCYTES # (AUTO) 0.8 (0.2-0.8); MONOCYTES % 11.6 % (4.4-11.3); NEUTROPHILS # (AUTO) 4.5 (2.1-6.9); NEUTROPHILS % 65.2 % (38.7-80.0); PLATELET COUNT 249 x10e3/uL (140-360); RED BLOOD COUNT 3.11 x10e6/uL (3.6-5.1); RED CELL DISTRIBUTION WIDTH 22.5 % (11.7-14.4)
[2020-09-01] MEDS: INSULIN REGULAR, HUMAN 100 UNIT/1 ML 3ML VIAL SQ SCH ×4 (07:30→21:00)
[2020-09-01 07:35] LABS: CALCIUM 7.9 mg/dL (8.4-10.2); CREATININE, SERUM 1.71 mg/dL (0.57-1.11)
[2020-09-01] MEDS: AMIODARONE HCL 200 MG TAB PO SCH (09:13)
[2020-09-01] MEDS: PANTOPRAZOLE 40 MG 10ML VIAL IV SCH ×2 (09:13→17:09)
[2020-09-01] MEDS: ALLOPURINOL 100 MG TAB PO SCH (09:13)
[2020-09-01] MEDS: AZITHROMYCIN 500MG/NS 250 ML 250 ML IV SCH (20:45)
[2020-09-01] MEDS: CEFTRIAXONE SOD 1 GM in SODIUM CHLORIDE 0.9% 50ML 50 ML IV SCH (21:00)
[2020-09-02] VITALS (7 sets, daily range): BP systolic 84–141; BP diastolic 55–96
[2020-09-02] MEDS: LEVOTHYROXINE SODIUM 50 MCG TAB PO SCH (06:02)
[2020-09-02] MEDS: INSULIN REGULAR, HUMAN 100 UNIT/1 ML 3ML VIAL SQ SCH ×4 (07:30→20:20)
[2020-09-02] MEDS: PANTOPRAZOLE 40 MG 10ML VIAL IV SCH ×2 (09:28→16:03)
[2020-09-02] MEDS: ALLOPURINOL 100 MG TAB PO SCH (09:28)
[2020-09-02] MEDS: AMIODARONE HCL 200 MG TAB PO SCH (09:28)
[2020-09-02 13:47] LABS: INR 1.42; PROTHROMBIN TIME 18.4 seconds (11.9-14.5)
[2020-09-02] MEDS: METOPROLOL SUCCINATE 25 MG TAB XL PO SCH (16:00)
[2020-09-02] MEDS: AZITHROMYCIN 500MG/NS 250 ML 250 ML IV SCH (20:19)
[2020-09-02] MEDS: CEFTRIAXONE SOD 1 GM in SODIUM CHLORIDE 0.9% 50ML 50 ML IV SCH (21:30)
[2020-09-02] MEDS ORDERED: CEFTRIAXONE SOD 1 GM VIAL ONE (21:37)
[2020-09-02] MEDS ORDERED: SODIUM CHLORIDE 0.9% 50ML 50 ML ONE (21:40)
[2020-09-03] VITALS (7 sets, daily range): BP systolic 101–127; BP diastolic 57–85
[2020-09-03] MEDS: LEVOTHYROXINE SODIUM 50 MCG TAB PO SCH (05:48)
[2020-09-03] MEDS: INSULIN REGULAR, HUMAN 100 UNIT/1 ML 3ML VIAL SQ SCH ×4 (07:30→21:00)
[2020-09-03 07:39] LABS: BASOPHILS # (AUTO) 0.1 (0.0-0.1); BASOPHILS % 0.9 % (0.0-1.0); EOSINOPHILS # (AUTO) 0.2 (0.0-0.4); HEMOGLOBIN 10.3 g/dL (12.0-16.0); LYMPHOCYTES # (AUTO) 1.9 (1.0-3.2); LYMPHOCYTES % 27.1 % (18.0-39.1); MEAN CORPUSCULAR HEMOGLOBIN 29.6 pg (28-32); MEAN CORPUSCULAR HGB CONC 30.3 g/dL (31-35); MEAN CORPUSCULAR VOLUME 97.7 fL (81-99); MONOCYTES # (AUTO) 0.8 (0.2-0.8); MONOCYTES % 11.6 % (4.4-11.3); NEUTROPHILS % 56.8 % (38.7-80.0); PLATELET COUNT 315 x10e3/uL (140-360); RED BLOOD COUNT 3.48 x10e6/uL (3.6-5.1); RED CELL DISTRIBUTION WIDTH 20.4 % (11.7-14.4)
[2020-09-03 08:03] LABS: ANION GAP 12.1 mmol/L (8-16); CALCIUM 8.1 mg/dL (8.4-10.2); CREATININE, SERUM 1.51 mg/dL (0.57-1.11); POTASSIUM 4.1 mmol/L (3.5-5.1)
[2020-09-03] MEDS: AMIODARONE HCL 200 MG TAB PO SCH (10:26)
[2020-09-03] MEDS: PANTOPRAZOLE 40 MG 10ML VIAL IV SCH ×2 (10:26→17:43)
[2020-09-03] MEDS: METOPROLOL SUCCINATE 25 MG TAB XL PO SCH (10:27)
[2020-09-03] MEDS: ALLOPURINOL 100 MG TAB PO SCH (10:27)
[2020-09-03] MEDS ORDERED: CEFTRIAXONE SOD 1 GM VIAL ONE ×2 (17:24→22:01)
[2020-09-03] MEDS ORDERED: ALPRAZOLAM 0.25 MG TAB PO PRN (20:00)
[2020-09-03] MEDS: CEFTRIAXONE SOD 1 GM in SODIUM CHLORIDE 0.9% 50ML 50 ML IV SCH (22:00)
[2020-09-03] MEDS ORDERED: SODIUM CHLORIDE 0.9% 250ML 250 ML ONE (22:02)
[2020-09-03] MEDS ORDERED: SODIUM CHLORIDE 0.9% 50ML 50 ML ONE (22:02)
[2020-09-03] MEDS: AZITHROMYCIN 500MG/NS 250 ML 250 ML IV SCH (22:39)
[2020-09-04] VITALS (8 sets, daily range): BP systolic 104–135; BP diastolic 51–78
[2020-09-04] MEDS: LEVOTHYROXINE SODIUM 50 MCG TAB PO SCH (05:52)
[2020-09-04 06:28] LABS: INR 1.35; PROTHROMBIN TIME 17.6 seconds (11.9-14.5)
[2020-09-04 06:34] LABS: BASOPHILS # (AUTO) 0.1 (0.0-0.1); BASOPHILS % 1.4 % (0.0-1.0); EOSINOPHILS # (AUTO) 0.2 (0.0-0.4); EOSINOPHILS % 3.7 % (0.0-6.0); HEMATOCRIT 32.6 % (34.2-44.1); HEMOGLOBIN 9.9 g/dL (12.0-16.0); LYMPHOCYTES # (AUTO) 1.6 (1.0-3.2); LYMPHOCYTES % 27.1 % (18.0-39.1); MEAN CORPUSCULAR HEMOGLOBIN 30.2 pg (28-32); MEAN CORPUSCULAR HGB CONC 30.4 g/dL (31-35); MEAN CORPUSCULAR VOLUME 99.4 fL (81-99); MONOCYTES # (AUTO) 0.6 (0.2-0.8); MONOCYTES % 9.9 % (4.4-11.3); NEUTROPHILS # (AUTO) 3.4 (2.1-6.9); NEUTROPHILS % 57.6 % (38.7-80.0); PLATELET COUNT 303 x10e3/uL (140-360); RED BLOOD COUNT 3.28 x10e6/uL (3.6-5.1); RED CELL DISTRIBUTION WIDTH 19.3 % (11.7-14.4)
[2020-09-04 06:50] LABS: ANION GAP 13.3 mmol/L (8-16); CALCIUM 8.1 mg/dL (8.4-10.2); CREATININE, SERUM 1.43 mg/dL (0.57-1.11); POTASSIUM 4.3 mmol/L (3.5-5.1)
[2020-09-04] MEDS: INSULIN REGULAR, HUMAN 100 UNIT/1 ML 3ML VIAL SQ SCH ×4 (07:30→20:46)
[2020-09-04] MEDS: ALLOPURINOL 100 MG TAB PO SCH (09:45)
[2020-09-04] MEDS: METOPROLOL SUCCINATE 25 MG TAB XL PO SCH (09:45)
[2020-09-04] MEDS: AMIODARONE HCL 200 MG TAB PO SCH (09:45)
[2020-09-04] MEDS: PANTOPRAZOLE 40 MG 10ML VIAL IV SCH ×2 (09:45→17:11)
[2020-09-04] MEDS ORDERED: FENTANYL CITRATE/PF 100MCG/2 ML INJ ONE (12:27)
[2020-09-04] MEDS ORDERED: LIDOCAINE HCL 2% LOCAL INJ 5 ML SDV VIAL INJ ONE (19:35)
[2020-09-04] MEDS ORDERED: PROPOFOL IV EMULSION 10 MG/ML 20 ML VIAL ONE (19:35)
[2020-09-04] MEDS: CEFTRIAXONE SOD 1 GM in SODIUM CHLORIDE 0.9% 50ML 50 ML IV SCH (21:28)
[2020-09-04] MEDS ORDERED: CEFTRIAXONE SOD 1 GM VIAL ONE (21:29)
[2020-09-04] MEDS ORDERED: SODIUM CHLORIDE 0.9% 50ML 50 ML ONE (21:30)
[2020-09-04] MEDS: AZITHROMYCIN 500MG/NS 250 ML 250 ML IV SCH (22:23)
[2020-09-04] MEDS ORDERED: BISACODYL 5 MG TAB EC PO STA (23:12)
[2020-09-04] MEDS ORDERED: BISACODYL 5 MG TAB EC PO ONE (23:15)
[2020-09-05] VITALS (8 sets, daily range): BP systolic 103–143; BP diastolic 55–72
[2020-09-05] MEDS ORDERED: CITRATE OF MAGNESIA 300ML BOTTLE PO ONE ×2 (05:00→07:00)
[2020-09-05] MEDS: LEVOTHYROXINE SODIUM 50 MCG TAB PO SCH (05:15)
[2020-09-05] MEDS: INSULIN REGULAR, HUMAN 100 UNIT/1 ML 3ML VIAL SQ SCH ×4 (07:30→19:41)
[2020-09-05] MEDS: PANTOPRAZOLE 40 MG 10ML VIAL IV SCH ×2 (08:40→16:49)
[2020-09-05] MEDS: AMIODARONE HCL 200 MG TAB PO SCH (08:40)
[2020-09-05] MEDS: METOPROLOL SUCCINATE 25 MG TAB XL PO SCH (08:40)
[2020-09-05] MEDS: ALLOPURINOL 100 MG TAB PO SCH (08:40)
[2020-09-05 11:31] LABS: HEMATOCRIT 37.1 % (34.2-44.1); HEMOGLOBIN 10.9 g/dL (12.0-16.0)
[2020-09-05 11:55] LABS: ANION GAP 14.9 mmol/L (8-16); CALCIUM 8.8 mg/dL (8.4-10.2); CREATININE, SERUM 1.68 mg/dL (0.57-1.11); POTASSIUM 3.9 mmol/L (3.5-5.1)
[2020-09-05] MEDS ORDERED: BISACODYL 5 MG TAB EC PO ONE ×2 (14:30→15:30)
[2020-09-05] MEDS ORDERED: CEFTRIAXONE SOD 1 GM VIAL ONE (20:27)
[2020-09-05] MEDS ORDERED: SODIUM CHLORIDE 0.9% 50ML 50 ML ONE (20:28)
[2020-09-05] MEDS: AZITHROMYCIN 500MG/NS 250 ML 250 ML IV SCH (20:30)
[2020-09-05] MEDS: CEFTRIAXONE SOD 1 GM in SODIUM CHLORIDE 0.9% 50ML 50 ML IV SCH (20:30)
[2020-09-05] MEDS ORDERED: BISACODYL 5 MG TAB EC PO STA (23:50)
[2020-09-06] VITALS (8 sets, daily range): BP systolic 104–128; BP diastolic 47–87
[2020-09-06] MEDS ORDERED: BISACODYL 5 MG TAB EC PO ONE (00:10)
[2020-09-06] MEDS: LEVOTHYROXINE SODIUM 50 MCG TAB PO SCH (05:18)
[2020-09-06] MEDS ORDERED: CITRATE OF MAGNESIA 300ML BOTTLE PO ONE ×2 (06:00)
[2020-09-06] MEDS: INSULIN REGULAR, HUMAN 100 UNIT/1 ML 3ML VIAL SQ SCH ×4 (07:30→21:00)
[2020-09-06] MEDS: PANTOPRAZOLE 40 MG 10ML VIAL IV SCH ×2 (10:34→17:35)
[2020-09-06] MEDS: METOPROLOL SUCCINATE 25 MG TAB XL PO SCH (10:34)
[2020-09-06] MEDS: AMIODARONE HCL 200 MG TAB PO SCH (10:34)
[2020-09-06] MEDS: ALLOPURINOL 100 MG TAB PO SCH (10:35)
[2020-09-06] MEDS ORDERED: FENTANYL CITRATE/PF 100MCG/2 ML INJ ONE (11:50)
[2020-09-06] MEDS ORDERED: LIDOCAINE HCL 2% LOCAL INJ 5 ML SDV VIAL INJ ONE (13:50)
[2020-09-06] MEDS ORDERED: PROPOFOL IV EMULSION 10 MG/ML 20 ML VIAL ONE (13:50)
[2020-09-06] MEDS: CEFTRIAXONE SOD 1 GM in SODIUM CHLORIDE 0.9% 50ML 50 ML IV SCH (22:29)
[2020-09-06] MEDS: AZITHROMYCIN 500MG/NS 250 ML 250 ML IV SCH (23:17)
[2020-09-07] VITALS (7 sets, daily range): BP systolic 91–111; BP diastolic 49–81
[2020-09-07] MEDS: LEVOTHYROXINE SODIUM 50 MCG TAB PO SCH (06:01)
[2020-09-07] MEDS ORDERED: AMIODARONE HCL200 MG PO (06:41)
[2020-09-07] MEDS ORDERED: PANTOPRAZOLE SO40 MG PO (06:41)
[2020-09-07] MEDS: INSULIN REGULAR, HUMAN 100 UNIT/1 ML 3ML VIAL SQ SCH ×3 (07:30→16:14)
[2020-09-07] MEDS: METOPROLOL SUCCINATE 25 MG TAB XL PO SCH (09:00)
[2020-09-07] MEDS: AMIODARONE HCL 200 MG TAB PO SCH (09:00)
[2020-09-07] MEDS: ALLOPURINOL 100 MG TAB PO SCH (09:00)
[2020-09-07] MEDS: PANTOPRAZOLE 40 MG 10ML VIAL IV SCH (09:20)
[2020-09-07] MEDS ORDERED: HEPARIN SOD (PORCINE) 1000 UNIT/ML SDV ONE (13:58)
[2020-09-07] MEDS ORDERED: ONDANSETRON HCL 4 MG ORAL DISINTEGRATING TAB PO PRN (14:00)
[2020-09-08] MEDS ORDERED: PANTOPRAZOLE SOD 40 MG TABEC PO SCH (07:30)
== END 2020-09-07 20:14 | disposition home health service (06) | DRG 291 ==
LOC: ER 17:40 → ERHOLD 21:53 → MED/SURG3 08-31 23:02
PROVIDERS: ADMIT Internal Medicine; ATTEND Internal Medicine
PROC: 30233K1 Transfusion of Nonautologous Frozen Plasma into Peripheral Vein, Percutaneous Approach (ICD-10-PCS; principal; 2020-08-30)
PROC: 30233N1 Transfusion of Nonautologous Red Blood Cells into Peripheral Vein, Percutaneous Approach (ICD-10-PCS; 2020-08-30)
PROC: 0W9B3ZX Drainage of Left Pleural Cavity, Percutaneous Approach, Diagnostic (ICD-10-PCS; 2020-08-31)
PROC: 0DB68ZX Excision of Stomach, Via Natural or Artificial Opening Endoscopic, Diagnostic (ICD-10-PCS; 2020-09-04)
PROC: 0DB38ZX Excision of Lower Esophagus, Via Natural or Artificial Opening Endoscopic, Diagnostic (ICD-10-PCS; 2020-09-04)
PROC: 0DB78ZX Excision of Stomach, Pylorus, Via Natural or Artificial Opening Endoscopic, Diagnostic (ICD-10-PCS; 2020-09-04)
PROC: 0DJD8ZZ Inspection of Lower Intestinal Tract, Via Natural or Artificial Opening Endoscopic (ICD-10-PCS; 2020-09-06)
DX: I13.0 Hypertensive heart and chronic kidney disease with heart failure and stage 1 through stage 4 chronic kidney disease, or unspecified chronic kidney disease (principal); G93.41 Metabolic encephalopathy; J18.9 Pneumonia, unspecified organism; I50.43 Acute on chronic combined systolic (congestive) and diastolic (congestive) heart failure; J90 Pleural effusion, not elsewhere classified; J94.2 Hemothorax; N17.9 Acute kidney failure, unspecified; D62 Acute posthemorrhagic anemia; I48.91 Unspecified atrial fibrillation; E88.09 Other disorders of plasma-protein metabolism, not elsewhere classified; R10.9 Unspecified abdominal pain; T45.515A Adverse effect of anticoagulants, initial encounter; M10.9 Gout, unspecified; E66.9 Obesity, unspecified; Z68.38 Body mass index [BMI] 38.0-38.9, adult; Z20.822 Contact with and (suspected) exposure to COVID-19; N18.9 Chronic kidney disease, unspecified; Z86.16 Personal history of COVID-19; E03.9 Hypothyroidism, unspecified; E11.22 Type 2 diabetes mellitus with diabetic chronic kidney disease
CPT/HCPCS: 32555; 36415; 43239; 45378; 71045; 71250; 74250; 78278; 80048; 80053; 80061; 82150; 82270; 82550; 82553; 82607; 82728; 82746; 82945; 82948; 83036; 83540; 83605; 83615; 83735; 83880; 84157; 84443; 84466; 84484; 85014; 85018; 85025; 85610; 85730; 86850; 86900; 86920; 87040; 87070; 87205; 88305; 88312; 89051; 93005; 93306; 93971; 97139; 99285; A9512; J0360; J0456; J0696; J1644; J2001; J2405; J3010; J3430; J7030; J7050; P9016; P9017; U0002

== ENCOUNTER 2020-09-18 19:09 | Inpatient (IN) | payer MEDICARE ==
[~2020-09-18] VITALS: Ht 162.6 cm; Wt 77.4 kg
[~2020-09-18 19:09] MED LIST changes: +AMIODARONE HCL200 MG PO; +PANTOPRAZOLE SO40 MG PO
[2020-09-18 19:36] LABS: BASOPHILS # (AUTO) 0.1 (0.0-0.1); BASOPHILS % 1.4 % (0.0-1.0); EOSINOPHILS # (AUTO) 0.2 (0.0-0.4); HEMOGLOBIN 10.5 g/dL (14.0-18.0); LYMPHOCYTES # (AUTO) 1.8 (1.0-3.2); LYMPHOCYTES % 27.1 % (18.0-39.1); MEAN CORPUSCULAR HEMOGLOBIN 29.6 pg (28-32); MEAN CORPUSCULAR VOLUME 98.6 fL (81-99); MONOCYTES # (AUTO) 0.7 (0.2-0.8); MONOCYTES % 9.9 % (4.4-11.3); NEUTROPHILS # (AUTO) 3.8 (2.1-6.9); NEUTROPHILS % 58.4 % (38.7-80.0); PLATELET COUNT 317 x10e3/uL (140-360); RED BLOOD COUNT 3.55 x10e6/uL (4.3-5.7); RED CELL DISTRIBUTION WIDTH 17.4 % (11.7-14.4)
[2020-09-18 19:48] LABS: PARTIAL THROMBOPLASTIN TIME 54.8 seconds (23.8-35.5)
[2020-09-18 19:55] LABS: INR 5.85
[2020-09-18 19:57] LABS: ALBUMIN 3.1 g/dL (3.5-5.0); ALBUMIN/GLOBULIN RATIO 0.9 (0.8-2.0); ANION GAP 14.7 mmol/L (8-16); CALCIUM 8.7 mg/dL (8.4-10.2); CREATININE, SERUM 1.96 mg/dL (0.57-1.11); POTASSIUM 4.7 mmol/L (3.5-5.1)
[2020-09-18] MEDS ORDERED: MORPHINE SULFATE INJ 2 MG/ML SYR IV STA (20:10)
[2020-09-18] MEDS ORDERED: ONDANSETRON HCL INJ 2MG/ML 2ML 2 MG/ML VIAL IV STA (20:10)
[2020-09-18] MEDS ORDERED: INSULIN REGULAR, HUMAN 100 UNIT/1 ML 3ML VIAL SQ SCH (21:00)
[2020-09-18] MEDS ORDERED: DEXTROSE 50% SYRINGE 50 ML IV PRN ×2 (21:00)
[2020-09-18] MEDS: FUROSEMIDE INJ 10 MG/ML 4 ML VIAL IV SCH (21:11)
[2020-09-18] MEDS: INSULIN REGULAR, HUMAN 100 UNIT/1 ML 3ML VIAL SQ SCH (21:44)
[2020-09-19] VITALS (10 sets, daily range): BP systolic 100–137; BP diastolic 51–92
[2020-09-19] MEDS ORDERED: PANTOPRAZOLE SOD 40 MG TABEC PO SCH (06:30)
[2020-09-19 06:49] LABS: BASOPHILS # (AUTO) 0.1 (0.0-0.1); BASOPHILS % 1.8 % (0.0-1.0); EOSINOPHILS # (AUTO) 0.4 (0.0-0.4); EOSINOPHILS % 5.6 % (0.0-6.0); HEMATOCRIT 34.1 % (34.2-44.1); HEMOGLOBIN 10.3 g/dL (12.0-16.0); LYMPHOCYTES # (AUTO) 1.8 (1.0-3.2); LYMPHOCYTES % 28.3 % (18.0-39.1); MEAN CORPUSCULAR HEMOGLOBIN 29.4 pg (28-32); MEAN CORPUSCULAR HGB CONC 30.2 g/dL (31-35); MEAN CORPUSCULAR VOLUME 97.4 fL (81-99); MONOCYTES # (AUTO) 0.7 (0.2-0.8); MONOCYTES % 10.6 % (4.4-11.3); NEUTROPHILS # (AUTO) 3.3 (2.1-6.9); NEUTROPHILS % 53.5 % (38.7-80.0); PLATELET COUNT 296 x10e3/uL (140-360); RED CELL DISTRIBUTION WIDTH 17.3 % (11.7-14.4)
[2020-09-19 07:08] LABS: INR 6.61; PROTHROMBIN TIME 64.1 seconds (11.9-14.5)
[2020-09-19 07:13] LABS: CREATINE KINASE MB 1.9 ng/mL (0-5.0)
[2020-09-19 07:30] LABS: ANION GAP 13.5 mmol/L (8-16); CREATININE, SERUM 1.86 mg/dL (0.57-1.11); POTASSIUM 4.5 mmol/L (3.5-5.1)
[2020-09-19] MEDS: INSULIN REGULAR, HUMAN 100 UNIT/1 ML 3ML VIAL SQ SCH ×4 (07:30→21:00)
[2020-09-19] MEDS ORDERED: PHYTONADIONE 10 MG/ML AMP PO ONE (08:20)
[2020-09-19] MEDS: FUROSEMIDE INJ 10 MG/ML 4 ML VIAL IV SCH ×2 (08:43→16:32)
[2020-09-19] MEDS: AMIODARONE HCL 200 MG TAB PO SCH (08:44)
[2020-09-19] MEDS: SODIUM BICARBONATE 650 MG TAB PO SCH ×2 (08:45→16:32)
[2020-09-19] MEDS: PANTOPRAZOLE SOD 40 MG TABEC PO SCH ×2 (08:45→21:04)
[2020-09-19] MEDS: METOPROLOL SUCCINATE 50 MG TAB XL PO SCH (08:46)
[2020-09-19 10:38] LABS: CLARITY,URINE CLEAR (CLEAR); COLOR,URINE YELLOW (YELLOW); KETONES,URINE NEGATIVE (NEGATIVE); LEUKOCYTE ESTERASE ,URINE SMALL (NEGATIVE); NITRITE,URINE NEGATIVE (NEGATIVE); PROTEIN,URINE DIPSTICK NEGATIVE (NEGATIVE); URINE UROBILINOGEN 0.2 mg/dL (0.2 - 1)
[2020-09-19] MEDS ORDERED: FLUCONAZOLE 100 MG TAB PO ONE (10:45)
[2020-09-19 10:52] LABS: BACTERIA,URINE MANY /HPF; EPITHELIAL CELLS,URINE FEW /LPF
[2020-09-19 12:29] LABS: CREATINE KINASE MB 1.8 ng/mL (0-5.0)
[2020-09-19 20:27] LABS: INR 2.21; PROTHROMBIN TIME 26.3 seconds (11.9-14.5)
[2020-09-19] MEDS: LATANOPROST(OPTH) 2.5 ML BTL OU SCH (21:04)
[2020-09-20] VITALS (8 sets, daily range): BP systolic 98–127; BP diastolic 51–70
[2020-09-20 05:43] LABS: BASOPHILS # (AUTO) 0.1 (0.0-0.1); BASOPHILS % 1.1 % (0.0-1.0); EOSINOPHILS # (AUTO) 0.3 (0.0-0.4); EOSINOPHILS % 3.9 % (0.0-6.0); HEMATOCRIT 33.7 % (34.2-44.1); HEMOGLOBIN 10.4 g/dL (12.0-16.0); LYMPHOCYTES # (AUTO) 2.1 (1.0-3.2); LYMPHOCYTES % 28.7 % (18.0-39.1); MEAN CORPUSCULAR HEMOGLOBIN 29.6 pg (28-32); MEAN CORPUSCULAR HGB CONC 30.9 g/dL (31-35); MONOCYTES # (AUTO) 0.7 (0.2-0.8); MONOCYTES % 10.2 % (4.4-11.3); NEUTROPHILS % 55.7 % (38.7-80.0); PLATELET COUNT 273 x10e3/uL (140-360); RED BLOOD COUNT 3.51 x10e6/uL (3.6-5.1); RED CELL DISTRIBUTION WIDTH 16.8 % (11.7-14.4)
[2020-09-20 05:55] LABS: INR 1.44; PROTHROMBIN TIME 18.6 seconds (11.9-14.5)
[2020-09-20 06:03] LABS: CALCIUM 9.1 mg/dL (8.4-10.2); CREATININE, SERUM 1.87 mg/dL (0.57-1.11)
[2020-09-20] MEDS: LEVOTHYROXINE SODIUM 50 MCG TAB PO SCH (06:04)
[2020-09-20] MEDS ORDERED: CEFTRIAXONE SOD 1 GM/50 ML BAG IV SCH (07:30)
[2020-09-20] MEDS: INSULIN REGULAR, HUMAN 100 UNIT/1 ML 3ML VIAL SQ SCH ×4 (07:30→20:57)
[2020-09-20] MEDS: BALSAM PERU/CASTOR OIL 60 GM OINT...G. TP SCH (09:00)
[2020-09-20] MEDS: CEFTRIAXONE SOD 1 GM in SODIUM CHLORIDE 0.9% 50ML 50 ML IV SCH (10:00)
[2020-09-20] MEDS: FUROSEMIDE INJ 10 MG/ML 4 ML VIAL IV SCH ×2 (10:03→16:25)
[2020-09-20] MEDS: AMIODARONE HCL 200 MG TAB PO SCH (10:03)
[2020-09-20] MEDS: SODIUM BICARBONATE 650 MG TAB PO SCH ×2 (10:04→16:25)
[2020-09-20] MEDS: PANTOPRAZOLE SOD 40 MG TABEC PO SCH ×2 (10:04→20:55)
[2020-09-20] MEDS: METOPROLOL SUCCINATE 50 MG TAB XL PO SCH (10:05)
[2020-09-20] MEDS ORDERED: SODIUM CHLORIDE 0.9% 250ML 250 ML ONE (10:20)
[2020-09-20] MEDS: MORPHINE SULFATE INJ 2 MG/ML SYR IV PRN ×2 (12:32→18:22)
[2020-09-20 14:54] LABS: INR 1.29
[2020-09-20] MEDS: LATANOPROST(OPTH) 2.5 ML BTL OU SCH (20:55)
[2020-09-21] VITALS (7 sets, daily range): BP systolic 91–109; BP diastolic 48–70
[2020-09-21] MEDS ORDERED: DIPHENHYDRAMINE HCL 25 MG CAP PO PRN (01:30)
[2020-09-21] MEDS: LEVOTHYROXINE SODIUM 50 MCG TAB PO SCH (05:16)
[2020-09-21] MEDS ORDERED: LASIX10 MG/ML PO (05:58)
[2020-09-21] MEDS ORDERED: KEFLEX125 MG/5 M PO (05:59)
[2020-09-21 07:12] LABS: INR 1.22; PROTHROMBIN TIME 16.2 seconds (11.9-14.5)
[2020-09-21] MEDS: INSULIN REGULAR, HUMAN 100 UNIT/1 ML 3ML VIAL SQ SCH ×4 (07:30→20:52)
[2020-09-21] MEDS: METOPROLOL SUCCINATE 50 MG TAB XL PO SCH (08:36)
[2020-09-21] MEDS: SODIUM BICARBONATE 650 MG TAB PO SCH ×2 (08:36→17:18)
[2020-09-21] MEDS: PANTOPRAZOLE SOD 40 MG TABEC PO SCH ×2 (08:37→20:45)
[2020-09-21] MEDS: FUROSEMIDE INJ 10 MG/ML 4 ML VIAL IV SCH ×2 (08:37→17:00)
[2020-09-21] MEDS: AMIODARONE HCL 200 MG TAB PO SCH (08:37)
[2020-09-21] MEDS: CEFTRIAXONE SOD 1 GM in SODIUM CHLORIDE 0.9% 50ML 50 ML IV SCH (09:15)
[2020-09-21] MEDS: BALSAM PERU/CASTOR OIL 60 GM OINT...G. TP SCH (09:15)
[2020-09-21] MEDS ORDERED: SODIUM CHLORIDE 0.9% 50ML 50 ML ONE (09:20)
[2020-09-21] MEDS: MEROPENEM 500MG/ NS 50ML 50 ML IV SCH ×2 (13:23→20:45)
[2020-09-21] MEDS: LATANOPROST(OPTH) 2.5 ML BTL OU SCH (20:45)
[2020-09-22] VITALS (7 sets, daily range): BP systolic 93–121; BP diastolic 43–57
[2020-09-22] MEDS: LEVOTHYROXINE SODIUM 50 MCG TAB PO SCH (05:12)
[2020-09-22] MEDS: INSULIN REGULAR, HUMAN 100 UNIT/1 ML 3ML VIAL SQ SCH ×4 (07:30→21:12)
[2020-09-22] MEDS: METOPROLOL SUCCINATE 50 MG TAB XL PO SCH (09:00)
[2020-09-22] MEDS: AMIODARONE HCL 200 MG TAB PO SCH (09:06)
[2020-09-22] MEDS: FUROSEMIDE INJ 10 MG/ML 4 ML VIAL IV SCH ×2 (09:06→17:22)
[2020-09-22] MEDS: SODIUM BICARBONATE 650 MG TAB PO SCH ×2 (09:06→17:22)
[2020-09-22] MEDS: PANTOPRAZOLE SOD 40 MG TABEC PO SCH ×2 (09:06→21:11)
[2020-09-22] MEDS: MEROPENEM 500MG/ NS 50ML 50 ML IV SCH ×2 (09:06→21:11)
[2020-09-22] MEDS: BALSAM PERU/CASTOR OIL 60 GM OINT...G. TP SCH (09:07)
[2020-09-22] MEDS ORDERED: SODIUM CHLORIDE 0.9% 250ML 250 ML ONE (10:00)
[2020-09-22] MEDS: WARFARIN SOD 2 MG TAB PO SCH (17:22)
[2020-09-22] MEDS: MORPHINE SULFATE INJ 2 MG/ML SYR IV PRN (21:17)
[2020-09-22] MEDS: LATANOPROST(OPTH) 2.5 ML BTL OU SCH (21:29)
[2020-09-23] VITALS (8 sets, daily range): BP systolic 99–130; BP diastolic 44–67
[2020-09-23] MEDS: LEVOTHYROXINE SODIUM 50 MCG TAB PO SCH (05:29)
[2020-09-23] MEDS: INSULIN REGULAR, HUMAN 100 UNIT/1 ML 3ML VIAL SQ SCH ×4 (07:30→21:16)
[2020-09-23] MEDS: MEROPENEM 500MG/ NS 50ML 50 ML IV SCH ×2 (08:58→21:13)
[2020-09-23] MEDS: BALSAM PERU/CASTOR OIL 60 GM OINT...G. TP SCH (08:58)
[2020-09-23] MEDS: PANTOPRAZOLE SOD 40 MG TABEC PO SCH ×2 (08:58→21:13)
[2020-09-23] MEDS: AMIODARONE HCL 200 MG TAB PO SCH (08:58)
[2020-09-23] MEDS: FUROSEMIDE INJ 10 MG/ML 4 ML VIAL IV SCH ×2 (08:58→17:39)
[2020-09-23] MEDS: METOPROLOL SUCCINATE 50 MG TAB XL PO SCH (08:58)
[2020-09-23] MEDS: SODIUM BICARBONATE 650 MG TAB PO SCH ×2 (08:58→17:39)
[2020-09-23] MEDS: WARFARIN SOD 2 MG TAB PO SCH (17:39)
[2020-09-23] MEDS: LATANOPROST(OPTH) 2.5 ML BTL OU SCH (21:13)
[2020-09-24 00:58] VITALS: BP 150/87
[2020-09-24 05:51] VITALS: BP 86/57
[2020-09-24] MEDS ORDERED: LEVOFLOXACIN250 MG PO (05:53)
[2020-09-24] MEDS ORDERED: WARFARIN SODIUM2 MG PO (05:54)
[2020-09-24] MEDS: LEVOTHYROXINE SODIUM 50 MCG TAB PO SCH (06:18)
[2020-09-24 07:00] LABS: BASOPHILS # (AUTO) 0.1 (0.0-0.1); BASOPHILS % 1.1 % (0.0-1.0); EOSINOPHILS # (AUTO) 0.3 (0.0-0.4); EOSINOPHILS % 4.7 % (0.0-6.0); HEMATOCRIT 34.8 % (34.2-44.1); HEMOGLOBIN 10.9 g/dL (12.0-16.0); LYMPHOCYTES # (AUTO) 2.2 (1.0-3.2); LYMPHOCYTES % 30.5 % (18.0-39.1); MEAN CORPUSCULAR HEMOGLOBIN 30.1 pg (28-32); MEAN CORPUSCULAR HGB CONC 31.3 g/dL (31-35); MEAN CORPUSCULAR VOLUME 96.1 fL (81-99); MONOCYTES # (AUTO) 0.8 (0.2-0.8); MONOCYTES % 11.2 % (4.4-11.3); NEUTROPHILS # (AUTO) 3.7 (2.1-6.9); NEUTROPHILS % 52.1 % (38.7-80.0); PLATELET COUNT 266 x10e3/uL (140-360); RED BLOOD COUNT 3.62 x10e6/uL (3.6-5.1); RED CELL DISTRIBUTION WIDTH 16.4 % (11.7-14.4)
[2020-09-24 07:13] LABS: INR 1.61; PROTHROMBIN TIME 20.3 seconds (11.9-14.5)
[2020-09-24 07:19] LABS: ANION GAP 17.9 mmol/L (8-16); CALCIUM 9.2 mg/dL (8.4-10.2); CREATININE, SERUM 2.45 mg/dL (0.57-1.11); POTASSIUM 3.9 mmol/L (3.5-5.1)
[2020-09-24 08:34] VITALS: BP 99/39
[2020-09-24] MEDS: MEROPENEM 500MG/ NS 50ML 50 ML IV SCH (09:32)
[2020-09-24] MEDS: AMIODARONE HCL 200 MG TAB PO SCH (09:32)
[2020-09-24] MEDS: PANTOPRAZOLE SOD 40 MG TABEC PO SCH (09:32)
[2020-09-24] MEDS: SODIUM BICARBONATE 650 MG TAB PO SCH (09:32)
[2020-09-24] MEDS: FUROSEMIDE INJ 10 MG/ML 4 ML VIAL IV SCH (09:32)
[2020-09-24] MEDS: BALSAM PERU/CASTOR OIL 60 GM OINT...G. TP SCH (09:35)
[2020-09-24 09:48] VITALS: BP 99/39
[2020-09-24 12:12] VITALS: BP 107/56
== END 2020-09-24 13:30 | disposition home health service (06) | DRG 291 ==
LOC: EDSEX 19:09 → ER 19:12 → ERHOLD 22:33 → MED/SURG 09-19 00:48 → EDBD 09-20 10:38 → OBSVTOIN 09-20 10:38 → MED/SURG3 09-22 05:55
PROVIDERS: ADMIT Internal Medicine; ATTEND Internal Medicine
DX: I13.0 Hypertensive heart and chronic kidney disease with heart failure and stage 1 through stage 4 chronic kidney disease, or unspecified chronic kidney disease (principal); I50.33 Acute on chronic diastolic (congestive) heart failure; N39.0 Urinary tract infection, site not specified; J81.1 Chronic pulmonary edema; Z16.12 Extended spectrum beta lactamase (ESBL) resistance; I82.5Z3 Chronic embolism and thrombosis of unspecified deep veins of distal lower extremity, bilateral; I48.20 Chronic atrial fibrillation, unspecified; N18.30 Chronic kidney disease, stage 3 unspecified; E66.9 Obesity, unspecified; Z68.38 Body mass index [BMI] 38.0-38.9, adult; T45.515A Adverse effect of anticoagulants, initial encounter; B96.1 Klebsiella pneumoniae [K. pneumoniae] as the cause of diseases classified elsewhere; Z79.01 Long term (current) use of anticoagulants; L89.322 Pressure ulcer of left buttock, stage 2; Z20.822 Contact with and (suspected) exposure to COVID-19
CPT/HCPCS: 36415; 71045; 80048; 80053; 81001; 82550; 82553; 82948; 84484; 85025; 85610; 85730; 87086; 87186; 93005; 93925; 93970; 96372; 97139; 99251; 99285; G0378; J0696; J1817; J1940; J2270; J2405; J3430; J7050; U0002

== ENCOUNTER 2020-10-13 16:13 | Inpatient (IN) | payer MEDICARE ==
[~2020-10-13] VITALS: Ht 162.6 cm; Wt 79.4 kg
[~2020-10-13 16:13] MED LIST changes: +KEFLEX125 MG/5 M PO; +LASIX10 MG/ML PO; +LEVOFLOXACIN250 MG PO; +WARFARIN SODIUM2 MG PO
[2020-10-13] MEDS ORDERED: PANTOPRAZOLE 40 MG 10ML VIAL IV NR (16:30)
[2020-10-13] MEDS ORDERED: SODIUM CHLORIDE 0.9% 500ML 500 ML IV ONE (16:30)
[2020-10-13] MEDS ORDERED: GLUCAGON FOR INJ 1 MG VIAL IV NR (16:30)
[2020-10-13 17:15] LABS: BASOPHILS % 0.6 % (0.0-1.0); EOSINOPHILS # (AUTO) 0.2 (0.0-0.4); EOSINOPHILS % 2.9 % (0.0-6.0); HEMATOCRIT 32.5 % (34.2-44.1); HEMOGLOBIN 10.8 g/dL (12.0-16.0); LYMPHOCYTES # (AUTO) 1.8 (1.0-3.2); LYMPHOCYTES % 33.6 % (18.0-39.1); MEAN CORPUSCULAR HGB CONC 33.2 g/dL (31-35); MEAN CORPUSCULAR VOLUME 90.3 fL (81-99); MONOCYTES # (AUTO) 0.4 (0.2-0.8); MONOCYTES % 7.4 % (4.4-11.3); NEUTROPHILS % 55.1 % (38.7-80.0); PLATELET COUNT 201 x10e3/uL (140-360); RED CELL DISTRIBUTION WIDTH 15.1 % (11.7-14.4)
[2020-10-13 17:24] LABS: INR 2.44; PROTHROMBIN TIME 27.3 seconds (11.9-14.5)
[2020-10-13 17:25] LABS: PARTIAL THROMBOPLASTIN TIME 60.4 seconds (23.8-35.5)
[2020-10-13] MEDS ORDERED: PANTOPRAZOLE 40 MG 10ML VIAL ONE (17:27)
[2020-10-13] MEDS ORDERED: ATROPINE SULFATE 0.1 MG/ML 10ML SYR ONE (17:27)
[2020-10-13] MEDS ORDERED: SODIUM CHLORIDE 0.9% 1000ML 2,000 ML ONE (17:29)
[2020-10-13] MEDS ORDERED: ATROPINE SULFATE 1 MG/ML VIAL IV ONE (17:30)
[2020-10-13] MEDS ORDERED: CEFEPIME HCL 1GM 1 GM in SODIUM CHLORIDE 0.9% 50ML 50 ML IV ONE (17:30)
[2020-10-13] MEDS ORDERED: SODIUM CHLORIDE 0.9% 1000ML 1,000 ML IV ONE ×2 (17:30)
[2020-10-13] MEDS ORDERED: CEFEPIME HCL 1 GM VIAL IV ONE (17:30)
[2020-10-13 17:32] LABS: ALBUMIN 3.2 g/dL (3.5-5.0); ALBUMIN/GLOBULIN RATIO 0.9 (0.8-2.0); ANION GAP 19.2 mmol/L (8-16); CALCIUM 8.2 mg/dL (8.4-10.2); CREATININE, SERUM 4.94 mg/dL (0.57-1.11); MAGNESIUM 2.9 MG/DL (1.3-2.1); POTASSIUM 5.2 mmol/L (3.5-5.1)
[2020-10-13] MEDS: CALCIUM GLUCONATE 10% INJ 13.95 MEQ in SODIUM CHLORIDE 0.9% 100 ML 100 ML IV ONE ×2 (17:36→18:47)
[2020-10-13] MEDS ORDERED: SODIUM CHLORIDE 0.9% 50ML 50 ML ONE (17:39)
[2020-10-13] MEDS ORDERED: CALCIUM GLUCONATE 10% INJ 0.465 MEQ/ML VIAL ONE (17:39)
[2020-10-13 17:43] LABS: CLARITY,URINE HAZY (CLEAR); COLOR,URINE YELLOW (YELLOW)
[2020-10-13 17:44] LABS: BACTERIA,URINE FEW /HPF; EPITHELIAL CELLS,URINE FEW /LPF; KETONES,URINE NEGATIVE (NEGATIVE); LEUKOCYTE ESTERASE ,URINE NEGATIVE (NEGATIVE); NITRITE,URINE NEGATIVE (NEGATIVE); PROTEIN,URINE DIPSTICK NEGATIVE (NEGATIVE); RBC,URINE 0-5 /HPF (0-5); URINE UROBILINOGEN 0.2 mg/dL (0.2 - 1)
[2020-10-13] MEDS ORDERED: CALCIUM GLUCONATE 10% INJ 13.95 MEQ in SODIUM CHLORIDE 0.9% 100 ML 100 ML IV ONE (17:45)
[2020-10-13 17:47] LABS: B-TYPE NATRIURETIC PEPTIDE2 421.9 pg/mL (0-100)
[2020-10-13 17:51] LABS: CREATINE KINASE MB 5.3 ng/mL (0-5.0); THYROID STIMULATING HORMONE 1.13 uIU/mL (0.350-4.940)
[2020-10-13] MEDS ORDERED: VANCOMYCIN 1GM/NS 250 ML 250 ML IV ONE (19:00)
[2020-10-13] MEDS ORDERED: ONDANSETRON HCL INJ 2MG/ML 2ML 2 MG/ML VIAL IV PRN (19:00)
[2020-10-13 19:14] LABS: ABG HCO3 20 mmol/L (22-26); ABG PCO2 40 mmHg (35-45); ABG PH 7.31 (7.35-7.45); ABG PO2 110 mmHg (80-105); ABG TCO2 21
[2020-10-13] MEDS ORDERED: CEFEPIME HCL 1 GM VIAL IV SCH (19:15)
[2020-10-13] MEDS: CEFEPIME HCL 1GM 1 GM in SODIUM CHLORIDE 0.9% 50ML 50 ML IV SCH (19:42)
[2020-10-13 20:30] VITALS: BP 101/56
[2020-10-13] MEDS: SODIUM CHLORIDE 0.9% 1000ML 1,000 ML IV SCH (20:51)
[2020-10-13 21:00] VITALS: BP_SYST 88; BP_SYST 90; BP_DIAS 53; BP_DIAS 75
[2020-10-13 22:00] VITALS: BP 86/56
[2020-10-13 23:00] VITALS: BP 86/65
[2020-10-14] VITALS (25 sets, daily range): BP systolic 86–132; BP diastolic 40–89
[2020-10-14] MEDS: SODIUM CHLORIDE 0.9% 1000ML 1,000 ML IV SCH (05:00)
[2020-10-14 05:28] LABS: BASOPHILS % 0.4 % (0.0-1.0); EOSINOPHILS % 0.2 % (0.0-6.0); HEMATOCRIT 30.7 % (34.2-44.1); HEMOGLOBIN 10.1 g/dL (12.0-16.0); LYMPHOCYTES # (AUTO) 0.8 (1.0-3.2); LYMPHOCYTES % 8.4 % (18.0-39.1); MEAN CORPUSCULAR HEMOGLOBIN 30.1 pg (28-32); MEAN CORPUSCULAR HGB CONC 32.9 g/dL (31-35); MEAN CORPUSCULAR VOLUME 91.4 fL (81-99); MONOCYTES # (AUTO) 0.9 (0.2-0.8); MONOCYTES % 9.8 % (4.4-11.3); NEUTROPHILS # (AUTO) 7.5 (2.1-6.9); NEUTROPHILS % 80.8 % (38.7-80.0); PLATELET COUNT 223 x10e3/uL (140-360); RED BLOOD COUNT 3.36 x10e6/uL (3.6-5.1); RED CELL DISTRIBUTION WIDTH 15.2 % (11.7-14.4)
[2020-10-14 05:39] LABS: INR 2.6; PROTHROMBIN TIME 28.6 seconds (11.9-14.5)
[2020-10-14 05:40] LABS: PARTIAL THROMBOPLASTIN TIME 65.5 seconds (23.8-35.5)
[2020-10-14 06:14] LABS: ALBUMIN 3.1 g/dL (3.5-5.0); ALBUMIN/GLOBULIN RATIO 0.9 (0.8-2.0); ANION GAP 20.5 mmol/L (8-16); CALCIUM 8.3 mg/dL (8.4-10.2); CREATININE, SERUM 4.42 mg/dL (0.57-1.11); POTASSIUM 5.5 mmol/L (3.5-5.1)
[2020-10-14 06:21] LABS: CREATINE KINASE MB 4.4 ng/mL (0-5.0)
[2020-10-14] MEDS ORDERED: DEXTROSE 50% SYRINGE 50 ML IV ONE (06:51)
[2020-10-14] MEDS ORDERED: CEFEPIME 1GM/NS 0.9% 50 ML 50 ML IV SCH (09:00)
[2020-10-14] MEDS: FAMOTIDINE 20 MG/2 ML VIAL IV SCH (09:16)
[2020-10-14] MEDS: SODIUM BICARBONATE 8.4% 150 ML in DEXTROSE 5% 1,000 ML IV SCH (12:40)
[2020-10-14] MEDS: NOREPINEPHRINE 8 MG/D5W 250 ML 250 ML IV PRN (12:40)
[2020-10-14 14:16] LABS: CREATININE,URINE RANDOM 43.73 mg/dL (47-110)
[2020-10-14 15:28] LABS: CREATINE KINASE MB 3.7 ng/mL (0-5.0)
[2020-10-14] MEDS: CEFEPIME HCL 1GM 1 GM in SODIUM CHLORIDE 0.9% 50ML 50 ML IV SCH (19:27)
[2020-10-14] MEDS ORDERED: SODIUM CHLORIDE 0.9% 50ML 50 ML ONE (19:36)
[2020-10-14] MEDS ORDERED: CEFEPIME HCL 1 GM VIAL ONE (19:36)
[2020-10-15] VITALS (19 sets, daily range): BP systolic 89–139; BP diastolic 43–90
[2020-10-15] MEDS: NOREPINEPHRINE 8 MG/D5W 250 ML 250 ML IV PRN ×2 (00:46→06:49)
[2020-10-15] MEDS: SODIUM BICARBONATE 8.4% 150 ML in DEXTROSE 5% 1,000 ML IV SCH ×3 (00:46→23:33)
[2020-10-15 05:05] LABS: BASOPHILS % 0.5 % (0.0-1.0); EOSINOPHILS # (AUTO) 0.1 (0.0-0.4); EOSINOPHILS % 0.6 % (0.0-6.0); HEMATOCRIT 29.6 % (34.2-44.1); HEMOGLOBIN 9.7 g/dL (12.0-16.0); LYMPHOCYTES # (AUTO) 1.3 (1.0-3.2); LYMPHOCYTES % 14.5 % (18.0-39.1); MEAN CORPUSCULAR HEMOGLOBIN 30.4 pg (28-32); MEAN CORPUSCULAR HGB CONC 32.8 g/dL (31-35); MEAN CORPUSCULAR VOLUME 92.8 fL (81-99); MONOCYTES % 10.7 % (4.4-11.3); NEUTROPHILS # (AUTO) 6.5 (2.1-6.9); NEUTROPHILS % 73.2 % (38.7-80.0); PLATELET COUNT 215 x10e3/uL (140-360); RED BLOOD COUNT 3.19 x10e6/uL (3.6-5.1); RED CELL DISTRIBUTION WIDTH 15.4 % (11.7-14.4)
[2020-10-15 05:33] LABS: CREATINE KINASE MB 4.4 ng/mL (0-5.0)
[2020-10-15 06:08] LABS: MAGNESIUM 2.4 MG/DL (1.3-2.1); PHOSPHORUS 6.8 MG/DL (2.3-4.7)
[2020-10-15 06:20] LABS: ALBUMIN 2.8 g/dL (3.5-5.0); ALBUMIN/GLOBULIN RATIO 0.8 (0.8-2.0); ANION GAP 16.8 mmol/L (8-16); CALCIUM 7.9 mg/dL (8.4-10.2); CREATININE, SERUM 4.07 mg/dL (0.57-1.11); POTASSIUM 4.8 mmol/L (3.5-5.1)
[2020-10-15] MEDS: FAMOTIDINE 20 MG/2 ML VIAL IV SCH (08:07)
[2020-10-15] MEDS: CEFEPIME HCL 1GM 1 GM in SODIUM CHLORIDE 0.9% 50ML 50 ML IV SCH (19:47)
[2020-10-15] MEDS ORDERED: SODIUM CHLORIDE 0.9% 50ML 50 ML ONE (19:50)
[2020-10-15] MEDS ORDERED: CEFEPIME HCL 1 GM VIAL ONE (19:50)
[2020-10-16] VITALS (23 sets, daily range): BP systolic 93–142; BP diastolic 44–79
[2020-10-16 05:57] LABS: BASOPHILS % 0.7 % (0.0-1.0); EOSINOPHILS # (AUTO) 0.2 (0.0-0.4); EOSINOPHILS % 3.5 % (0.0-6.0); HEMATOCRIT 27.1 % (34.2-44.1); HEMOGLOBIN 8.9 g/dL (12.0-16.0); LYMPHOCYTES % 18.8 % (18.0-39.1); MEAN CORPUSCULAR HEMOGLOBIN 30.1 pg (28-32); MEAN CORPUSCULAR HGB CONC 32.8 g/dL (31-35); MEAN CORPUSCULAR VOLUME 91.6 fL (81-99); MONOCYTES # (AUTO) 0.7 (0.2-0.8); MONOCYTES % 13.2 % (4.4-11.3); NEUTROPHILS # (AUTO) 3.5 (2.1-6.9); NEUTROPHILS % 63.6 % (38.7-80.0); PLATELET COUNT 173 x10e3/uL (140-360); RED BLOOD COUNT 2.96 x10e6/uL (3.6-5.1); RED CELL DISTRIBUTION WIDTH 15.3 % (11.7-14.4)
[2020-10-16 06:23] LABS: ALBUMIN 2.4 g/dL (3.5-5.0); ALBUMIN/GLOBULIN RATIO 0.8 (0.8-2.0); ANION GAP 13.5 mmol/L (8-16); CALCIUM 8.1 mg/dL (8.4-10.2); CREATININE, SERUM 3.17 mg/dL (0.57-1.11); POTASSIUM 3.5 mmol/L (3.5-5.1)
[2020-10-16] MEDS: FAMOTIDINE 20 MG/2 ML VIAL IV SCH (08:36)
[2020-10-16] MEDS: SODIUM BICARBONATE 8.4% 150 ML in DEXTROSE 5% 1,000 ML IV SCH ×2 (10:02→22:15)
[2020-10-16] MEDS ORDERED: CEFEPIME HCL 1 GM VIAL ONE (19:38)
[2020-10-16] MEDS: CEFEPIME HCL 1GM 1 GM in SODIUM CHLORIDE 0.9% 50ML 50 ML IV SCH (20:06)
[2020-10-17] VITALS (26 sets, daily range): BP systolic 85–158; BP diastolic 49–84
[2020-10-17 05:08] LABS: BASOPHILS % 0.4 % (0.0-1.0); EOSINOPHILS # (AUTO) 0.3 (0.0-0.4); EOSINOPHILS % 6.1 % (0.0-6.0); HEMATOCRIT 26.6 % (34.2-44.1); HEMOGLOBIN 8.7 g/dL (12.0-16.0); LYMPHOCYTES # (AUTO) 1.1 (1.0-3.2); LYMPHOCYTES % 20.9 % (18.0-39.1); MEAN CORPUSCULAR HEMOGLOBIN 30.7 pg (28-32); MEAN CORPUSCULAR HGB CONC 32.7 g/dL (31-35); MONOCYTES # (AUTO) 0.7 (0.2-0.8); MONOCYTES % 13.7 % (4.4-11.3); NEUTROPHILS % 58.5 % (38.7-80.0); PLATELET COUNT 164 x10e3/uL (140-360); RED BLOOD COUNT 2.83 x10e6/uL (3.6-5.1); RED CELL DISTRIBUTION WIDTH 15.5 % (11.7-14.4)
[2020-10-17 05:53] LABS: ALBUMIN 2.2 g/dL (3.5-5.0); ALBUMIN/GLOBULIN RATIO 0.8 (0.8-2.0); ANION GAP 11.4 mmol/L (8-16); CALCIUM 8.1 mg/dL (8.4-10.2); CREATININE, SERUM 2.68 mg/dL (0.57-1.11); POTASSIUM 3.4 mmol/L (3.5-5.1)
[2020-10-17 06:14] LABS: INR 2.47; PROTHROMBIN TIME 27.5 seconds (11.9-14.5)
[2020-10-17] MEDS: FAMOTIDINE 20 MG/2 ML VIAL IV SCH (09:05)
[2020-10-17] MEDS: HEPARIN SOD (PORCINE) 5,000 UNIT/ML VIAL SC SCH ×2 (09:05→21:04)
[2020-10-17] MEDS ORDERED: CEFEPIME HCL 1 GM VIAL ONE (19:16)
[2020-10-17] MEDS: CEFEPIME HCL 1GM 1 GM in SODIUM CHLORIDE 0.9% 50ML 50 ML IV SCH (19:31)
[2020-10-18] VITALS (24 sets, daily range): BP systolic 91–128; BP diastolic 40–97
[2020-10-18 05:03] LABS: BASOPHILS % 0.5 % (0.0-1.0); EOSINOPHILS # (AUTO) 0.3 (0.0-0.4); EOSINOPHILS % 5.2 % (0.0-6.0); HEMATOCRIT 28.7 % (34.2-44.1); HEMOGLOBIN 8.9 g/dL (12.0-16.0); LYMPHOCYTES # (AUTO) 1.5 (1.0-3.2); LYMPHOCYTES % 26.7 % (18.0-39.1); MEAN CORPUSCULAR HEMOGLOBIN 30.3 pg (28-32); MEAN CORPUSCULAR VOLUME 97.6 fL (81-99); MONOCYTES # (AUTO) 0.6 (0.2-0.8); MONOCYTES % 11.2 % (4.4-11.3); NEUTROPHILS # (AUTO) 3.1 (2.1-6.9); NEUTROPHILS % 56.2 % (38.7-80.0); PLATELET COUNT 169 x10e3/uL (140-360); RED BLOOD COUNT 2.94 x10e6/uL (3.6-5.1); RED CELL DISTRIBUTION WIDTH 15.7 % (11.7-14.4)
[2020-10-18 05:16] LABS: INR 1.83; PROTHROMBIN TIME 21.9 seconds (11.9-14.5)
[2020-10-18 05:28] LABS: ALBUMIN 2.4 g/dL (3.5-5.0); ALBUMIN/GLOBULIN RATIO 0.8 (0.8-2.0); ANION GAP 13.6 mmol/L (8-16); CALCIUM 8.8 mg/dL (8.4-10.2); CREATININE, SERUM 2.56 mg/dL (0.57-1.11); POTASSIUM 3.6 mmol/L (3.5-5.1)
[2020-10-18] MEDS: FAMOTIDINE 20 MG/2 ML VIAL IV SCH (09:15)
[2020-10-18] MEDS: HEPARIN SOD (PORCINE) 5,000 UNIT/ML VIAL SC SCH ×2 (09:16→21:08)
[2020-10-18] MEDS: CEFEPIME HCL 1GM 1 GM in SODIUM CHLORIDE 0.9% 50ML 50 ML IV SCH (19:35)
[2020-10-18] MEDS ORDERED: CEFEPIME HCL 1 GM VIAL ONE (19:43)
[2020-10-18] MEDS ORDERED: SODIUM CHLORIDE 0.9% 50ML 50 ML ONE (19:44)
[2020-10-19] VITALS (22 sets, daily range): BP systolic 97–141; BP diastolic 46–101
[2020-10-19 06:18] LABS: BASOPHILS % 0.8 % (0.0-1.0); EOSINOPHILS # (AUTO) 0.2 (0.0-0.4); EOSINOPHILS % 3.9 % (0.0-6.0); HEMATOCRIT 29.2 % (34.2-44.1); HEMOGLOBIN 9.1 g/dL (12.0-16.0); LYMPHOCYTES # (AUTO) 1.1 (1.0-3.2); LYMPHOCYTES % 20.8 % (18.0-39.1); MEAN CORPUSCULAR HEMOGLOBIN 30.1 pg (28-32); MEAN CORPUSCULAR HGB CONC 31.2 g/dL (31-35); MEAN CORPUSCULAR VOLUME 96.7 fL (81-99); MONOCYTES # (AUTO) 0.6 (0.2-0.8); MONOCYTES % 11.4 % (4.4-11.3); NEUTROPHILS # (AUTO) 3.2 (2.1-6.9); NEUTROPHILS % 62.5 % (38.7-80.0); PLATELET COUNT 190 x10e3/uL (140-360); RED BLOOD COUNT 3.02 x10e6/uL (3.6-5.1); RED CELL DISTRIBUTION WIDTH 15.7 % (11.7-14.4)
[2020-10-19 06:33] LABS: INR 1.43; PROTHROMBIN TIME 18.1 seconds (11.9-14.5)
[2020-10-19 06:57] LABS: ALBUMIN 2.6 g/dL (3.5-5.0); ALBUMIN/GLOBULIN RATIO 0.8 (0.8-2.0); ANION GAP 17.7 mmol/L (8-16); CALCIUM 8.9 mg/dL (8.4-10.2); CREATININE, SERUM 2.53 mg/dL (0.57-1.11); POTASSIUM 3.7 mmol/L (3.5-5.1)
[2020-10-19] MEDS: FAMOTIDINE 20 MG/2 ML VIAL IV SCH (08:23)
[2020-10-19] MEDS: WARFARIN SOD 2 MG TAB PO SCH (08:24)
[2020-10-19] MEDS: HEPARIN SOD (PORCINE) 5,000 UNIT/ML VIAL SC SCH ×2 (08:24→21:08)
[2020-10-19 17:55] LABS: FREE T4 (FREE THYROXINE) 1.41 ng/dL (0.8-1.8); THYROID STIMULATING HORMONE 4.775 uIU/mL (0.350-4.940)
[2020-10-19] MEDS ORDERED: DEXTROSE 5% IV ONE (18:00)
[2020-10-19] MEDS: CEFEPIME HCL 1GM 1 GM in SODIUM CHLORIDE 0.9% 50ML 50 ML IV SCH (19:15)
[2020-10-19] MEDS ORDERED: CEFEPIME HCL 1 GM VIAL ONE (20:08)
[2020-10-19] MEDS ORDERED: SODIUM CHLORIDE 0.9% 50ML 50 ML ONE (20:09)
[2020-10-20] VITALS (16 sets, daily range): BP systolic 94–130; BP diastolic 52–98
[2020-10-20] MEDS ORDERED: ALBUTEROL/IPRATROPIUM 3 ML NEB ONE (06:47)
[2020-10-20] MEDS ORDERED: AMIODARONE HCL 150MG 100 ML IV STA (08:39)
[2020-10-20 08:56] LABS: ABG HCO3 33 mmol/L (22-26); ABG PCO2 44 mmHg (35-45); ABG PH 7.48 (7.35-7.45); ABG PO2 86 mmHg (80-105); ABG TCO2 34
[2020-10-20] MEDS ORDERED: DIGOXIN INJ 0.25 MG/ML 2 ML AMP IV ONE (09:00)
[2020-10-20 09:52] LABS: BASOPHILS # (AUTO) 0.1 (0.0-0.1); BASOPHILS % 0.7 % (0.0-1.0); EOSINOPHILS % 0.1 % (0.0-6.0); HEMATOCRIT 31.8 % (34.2-44.1); HEMOGLOBIN 9.7 g/dL (12.0-16.0); LYMPHOCYTES # (AUTO) 0.6 (1.0-3.2); MEAN CORPUSCULAR HEMOGLOBIN 30.3 pg (28-32); MEAN CORPUSCULAR HGB CONC 30.5 g/dL (31-35); MEAN CORPUSCULAR VOLUME 99.4 fL (81-99); MONOCYTES # (AUTO) 0.6 (0.2-0.8); NEUTROPHILS # (AUTO) 5.8 (2.1-6.9); NEUTROPHILS % 81.6 % (38.7-80.0); PLATELET COUNT 211 x10e3/uL (140-360); RED CELL DISTRIBUTION WIDTH 16.2 % (11.7-14.4)
[2020-10-20 10:09] LABS: ALBUMIN 2.9 g/dL (3.5-5.0); ALBUMIN/GLOBULIN RATIO 0.8 (0.8-2.0); ANION GAP 17.7 mmol/L (8-16); CALCIUM 9.2 mg/dL (8.4-10.2); CREATININE, SERUM 2.71 mg/dL (0.57-1.11); POTASSIUM 3.7 mmol/L (3.5-5.1)
[2020-10-20 10:16] LABS: CREATINE KINASE MB 4.7 ng/mL (0-5.0)
[2020-10-20] MEDS: THIAMINE HCL INJ 100 MG in SODIUM CHLORIDE 0.9% 50ML 50 ML IV SCH (11:00)
[2020-10-20] MEDS ORDERED: LIDOCAINE HCL 2% LOCAL 20 ML VIAL ONE (11:15)
[2020-10-20] MEDS: FAMOTIDINE 20 MG/2 ML VIAL IV SCH (11:51)
[2020-10-20] MEDS: WARFARIN SOD 2 MG TAB PO SCH (11:52)
[2020-10-20] MEDS: HEPARIN SOD (PORCINE) 5,000 UNIT/ML VIAL SC SCH ×2 (11:52→20:30)
[2020-10-20] MEDS ORDERED: FUROSEMIDE INJ 10 MG/ML 4 ML VIAL IV ONE (12:00)
[2020-10-20] MEDS: CEFEPIME HCL 1GM 1 GM in SODIUM CHLORIDE 0.9% 50ML 50 ML IV SCH (18:14)
[2020-10-20] MEDS: FUROSEMIDE INJ 10 MG/ML 2 ML VIAL IV SCH (18:14)
[2020-10-21] VITALS (22 sets, daily range): BP systolic 88–127; BP diastolic 43–95
[2020-10-21 05:48] LABS: BASOPHILS # (AUTO) 0.1 (0.0-0.1); BASOPHILS % 0.7 % (0.0-1.0); EOSINOPHILS % 0.5 % (0.0-6.0); HEMATOCRIT 28.9 % (34.2-44.1); HEMOGLOBIN 8.9 g/dL (12.0-16.0); LYMPHOCYTES # (AUTO) 0.9 (1.0-3.2); LYMPHOCYTES % 10.3 % (18.0-39.1); MEAN CORPUSCULAR HEMOGLOBIN 30.2 pg (28-32); MEAN CORPUSCULAR HGB CONC 30.8 g/dL (31-35); MONOCYTES # (AUTO) 0.6 (0.2-0.8); MONOCYTES % 7.2 % (4.4-11.3); NEUTROPHILS # (AUTO) 7.2 (2.1-6.9); PLATELET COUNT 205 x10e3/uL (140-360); RED BLOOD COUNT 2.95 x10e6/uL (3.6-5.1); RED CELL DISTRIBUTION WIDTH 16.2 % (11.7-14.4)
[2020-10-21] MEDS: FUROSEMIDE INJ 10 MG/ML 2 ML VIAL IV SCH ×2 (05:57→18:34)
[2020-10-21 06:06] LABS: INR 1.18; PROTHROMBIN TIME 15.7 seconds (11.9-14.5)
[2020-10-21 06:23] LABS: ALBUMIN 2.8 g/dL (3.5-5.0); ALBUMIN/GLOBULIN RATIO 0.8 (0.8-2.0); ANION GAP 17.8 mmol/L (8-16); CREATININE, SERUM 3.02 mg/dL (0.57-1.11); POTASSIUM 3.8 mmol/L (3.5-5.1)
[2020-10-21] MEDS: WARFARIN SOD 2 MG TAB PO SCH (09:00)
[2020-10-21] MEDS: FAMOTIDINE 20 MG/2 ML VIAL IV SCH (09:04)
[2020-10-21] MEDS: THIAMINE HCL INJ 100 MG in SODIUM CHLORIDE 0.9% 50ML 50 ML IV SCH (09:04)
[2020-10-21] MEDS: HEPARIN SOD (PORCINE) 5,000 UNIT/ML VIAL SC SCH ×2 (09:06→21:00)
[2020-10-21] MEDS ORDERED: LORAZEPAM INJ 2 MG/ML VIAL IV ONE ×2 (09:45→11:45)
[2020-10-21] MEDS ORDERED: LORAZEPAM INJ 2 MG/ML VIAL ONE (11:48)
[2020-10-21] MEDS: CEFEPIME HCL 1GM 1 GM in SODIUM CHLORIDE 0.9% 50ML 50 ML IV SCH (18:34)
[2020-10-22] VITALS (7 sets, daily range): BP systolic 107–161; BP diastolic 71–87
[2020-10-22 05:47] LABS: ALBUMIN 2.4 g/dL (3.5-5.0); ALBUMIN/GLOBULIN RATIO 0.8 (0.8-2.0); ANION GAP 15.7 mmol/L (8-16); CALCIUM 8.8 mg/dL (8.4-10.2); CREATININE, SERUM 3.08 mg/dL (0.57-1.11); POTASSIUM 3.7 mmol/L (3.5-5.1)
[2020-10-22] MEDS: FUROSEMIDE INJ 10 MG/ML 2 ML VIAL IV SCH ×2 (05:57→17:54)
[2020-10-22 06:03] LABS: BASOPHILS % 0.5 % (0.0-1.0); EOSINOPHILS # (AUTO) 0.2 (0.0-0.4); EOSINOPHILS % 2.2 % (0.0-6.0); HEMATOCRIT 30.4 % (34.2-44.1); HEMOGLOBIN 9.5 g/dL (12.0-16.0); LYMPHOCYTES # (AUTO) 1.5 (1.0-3.2); LYMPHOCYTES % 19.9 % (18.0-39.1); MEAN CORPUSCULAR HGB CONC 31.3 g/dL (31-35); MEAN CORPUSCULAR VOLUME 99.3 fL (81-99); MONOCYTES # (AUTO) 0.8 (0.2-0.8); MONOCYTES % 10.4 % (4.4-11.3); NEUTROPHILS # (AUTO) 4.9 (2.1-6.9); NEUTROPHILS % 66.6 % (38.7-80.0); PLATELET COUNT 158 x10e3/uL (140-360); RED BLOOD COUNT 3.06 x10e6/uL (3.6-5.1); RED CELL DISTRIBUTION WIDTH 16.4 % (11.7-14.4)
[2020-10-22] MEDS ORDERED: THIAMINE HCL INJ 100 MG/ML 2ML VIAL ONE (07:47)
[2020-10-22] MEDS: THIAMINE HCL INJ 100 MG in SODIUM CHLORIDE 0.9% 50ML 50 ML IV SCH (08:46)
[2020-10-22] MEDS: FAMOTIDINE 20 MG/2 ML VIAL IV SCH (08:46)
[2020-10-22] MEDS: WARFARIN SOD 2 MG TAB PO SCH (09:00)
[2020-10-22] MEDS: HEPARIN SOD (PORCINE) 5,000 UNIT/ML VIAL SC SCH (09:26)
[2020-10-22] MEDS: DEXTROSE 5% 1,000 ML IV SCH (12:32)
[2020-10-22] MEDS ORDERED: HEPARIN SOD (PORCINE) 5,000 UNIT/ML VIAL IV ONE (13:45)
[2020-10-22 14:26] LABS: INR 1.1; PROTHROMBIN TIME 14.8 seconds (11.9-14.5)
[2020-10-22] MEDS ORDERED: HEPARIN 25,000 UNIT DRIP IV ONE (14:47)
[2020-10-22] MEDS: HEPARIN 25,000 UNIT 1,200 UNIT in DEXTROSE 5% 250ML 250 ML IV SCH (14:56)
[2020-10-22] MEDS: CEFEPIME HCL 1GM 1 GM in SODIUM CHLORIDE 0.9% 50ML 50 ML IV SCH (20:55)
[2020-10-23] VITALS (8 sets, daily range): BP systolic 103–136; BP diastolic 49–84
[2020-10-23] MEDS: DEXTROSE 5% 1,000 ML IV SCH ×2 (04:28→15:10)
[2020-10-23 05:40] LABS: ALBUMIN 2.3 g/dL (3.5-5.0); ALBUMIN/GLOBULIN RATIO 0.7 (0.8-2.0); ANION GAP 13.8 mmol/L (8-16); CALCIUM 8.4 mg/dL (8.4-10.2); CREATININE, SERUM 2.87 mg/dL (0.57-1.11)
[2020-10-23 05:49] LABS: POTASSIUM 2.8 mmol/L (3.5-5.1)
[2020-10-23] MEDS: FUROSEMIDE INJ 10 MG/ML 2 ML VIAL IV SCH ×2 (06:00→17:44)
[2020-10-23] MEDS ORDERED: POTASSIUM CHLORIDE 20MEQ/100ML 100 ML IV NR (06:01)
[2020-10-23] MEDS ORDERED: POTASSIUM CHLORIDE 20 MEQ TAB CR PO NR (06:15)
[2020-10-23] MEDS ORDERED: THIAMINE HCL INJ 100 MG/ML 2ML VIAL ONE (08:21)
[2020-10-23] MEDS ORDERED: SODIUM CHLORIDE 0.9% 50ML 50 ML ONE (08:27)
[2020-10-23 08:46] LABS: INR 1.19; PROTHROMBIN TIME 15.8 seconds (11.9-14.5)
[2020-10-23] MEDS: WARFARIN SOD 2 MG TAB PO SCH (09:34)
[2020-10-23] MEDS: FAMOTIDINE 20 MG/2 ML VIAL IV SCH (09:34)
[2020-10-23] MEDS: THIAMINE HCL INJ 100 MG in SODIUM CHLORIDE 0.9% 50ML 50 ML IV SCH (09:34)
[2020-10-23 09:53] LABS: BASOPHILS % 0.8 % (0.0-1.0); EOSINOPHILS # (AUTO) 0.2 (0.0-0.4); EOSINOPHILS % 4.2 % (0.0-6.0); HEMATOCRIT 28.2 % (34.2-44.1); HEMOGLOBIN 8.9 g/dL (12.0-16.0); LYMPHOCYTES # (AUTO) 0.7 (1.0-3.2); LYMPHOCYTES % 14.1 % (18.0-39.1); MEAN CORPUSCULAR HEMOGLOBIN 30.7 pg (28-32); MEAN CORPUSCULAR HGB CONC 31.6 g/dL (31-35); MEAN CORPUSCULAR VOLUME 97.2 fL (81-99); MONOCYTES # (AUTO) 0.5 (0.2-0.8); NEUTROPHILS # (AUTO) 3.6 (2.1-6.9); NEUTROPHILS % 71.5 % (38.7-80.0); PLATELET COUNT 184 x10e3/uL (140-360); RED CELL DISTRIBUTION WIDTH 16.5 % (11.7-14.4)
[2020-10-23] MEDS: HEPARIN 25,000 UNIT 1,200 UNIT in DEXTROSE 5% 250ML 250 ML IV SCH (12:15)
[2020-10-23] MEDS ORDERED: POTASSIUM CHLORIDE 10MEQ EA PO NR (13:00)
[2020-10-23] MEDS ORDERED: DEXTROSE 50% SYRINGE 50 ML IV PRN (17:00)
[2020-10-23] MEDS: INSULIN REGULAR, HUMAN 100 UNIT/1 ML 3ML VIAL SQ SCH (21:35)
[2020-10-24] VITALS (10 sets, daily range): BP systolic 100–133; BP diastolic 61–95
[2020-10-24] MEDS: FUROSEMIDE INJ 10 MG/ML 2 ML VIAL IV SCH (06:15)
[2020-10-24] MEDS: INSULIN REGULAR, HUMAN 100 UNIT/1 ML 3ML VIAL SQ SCH ×4 (07:30→20:50)
[2020-10-24] MEDS ORDERED: THIAMINE HCL INJ 100 MG/ML 2ML VIAL ONE (07:37)
[2020-10-24 08:09] LABS: CALCIUM 8.2 mg/dL (8.4-10.2); CREATININE, SERUM 3.14 mg/dL (0.57-1.11)
[2020-10-24 08:40] LABS: MAGNESIUM 1.5 MG/DL (1.3-2.1); PHOSPHORUS 1.8 MG/DL (2.3-4.7)
[2020-10-24 08:42] LABS: BASOPHILS % 0.6 % (0.0-1.0); EOSINOPHILS # (AUTO) 0.3 (0.0-0.4); EOSINOPHILS % 4.1 % (0.0-6.0); HEMATOCRIT 27.7 % (34.2-44.1); HEMOGLOBIN 8.9 g/dL (12.0-16.0); LYMPHOCYTES # (AUTO) 1.3 (1.0-3.2); LYMPHOCYTES % 20.2 % (18.0-39.1); MEAN CORPUSCULAR HEMOGLOBIN 30.6 pg (28-32); MEAN CORPUSCULAR HGB CONC 32.1 g/dL (31-35); MEAN CORPUSCULAR VOLUME 95.2 fL (81-99); MONOCYTES # (AUTO) 0.6 (0.2-0.8); MONOCYTES % 9.7 % (4.4-11.3); NEUTROPHILS # (AUTO) 4.2 (2.1-6.9); NEUTROPHILS % 65.1 % (38.7-80.0); PLATELET COUNT 202 x10e3/uL (140-360); RED BLOOD COUNT 2.91 x10e6/uL (3.6-5.1); RED CELL DISTRIBUTION WIDTH 16.2 % (11.7-14.4)
[2020-10-24] MEDS: WARFARIN SOD 2 MG TAB PO SCH (08:58)
[2020-10-24] MEDS: FAMOTIDINE 20 MG/2 ML VIAL IV SCH ×2 (08:58→09:04)
[2020-10-24] MEDS: THIAMINE HCL INJ 100 MG in SODIUM CHLORIDE 0.9% 50ML 50 ML IV SCH (09:10)
[2020-10-24] MEDS: DEXTROSE 5% 1,000 ML IV SCH ×2 (09:10→18:17)
[2020-10-24] MEDS ORDERED: SODIUM CHLORIDE 0.9% 50ML 50 ML ONE (09:11)
[2020-10-24] MEDS: HEPARIN 25,000 UNIT 1,200 UNIT in DEXTROSE 5% 250ML 250 ML IV SCH (12:36)
[2020-10-24] MEDS ORDERED: MAGNESIUM SULFATE 2GM/50ML 50 ML IV ONE (14:00)
[2020-10-24] MEDS ORDERED: POTASSIUM PHOSPHATE 30 MM in SODIUM CHLORIDE 0.9% 250ML 250 ML IV ONE (15:00)
[2020-10-25] VITALS (8 sets, daily range): BP systolic 101–124; BP diastolic 55–82
[2020-10-25 04:05] LABS: INR 1.04; PROTHROMBIN TIME 14.2 seconds (11.9-14.5)
[2020-10-25] MEDS: ACETAMINOPHEN 325 MG TAB PO PRN (05:52)
[2020-10-25 07:04] LABS: BASOPHILS % 0.9 % (0.0-1.0); EOSINOPHILS # (AUTO) 0.2 (0.0-0.4); HEMATOCRIT 27.3 % (34.2-44.1); HEMOGLOBIN 8.8 g/dL (12.0-16.0); LYMPHOCYTES # (AUTO) 1.2 (1.0-3.2); LYMPHOCYTES % 27.2 % (18.0-39.1); MEAN CORPUSCULAR HEMOGLOBIN 30.3 pg (28-32); MEAN CORPUSCULAR HGB CONC 32.2 g/dL (31-35); MEAN CORPUSCULAR VOLUME 94.1 fL (81-99); MONOCYTES # (AUTO) 0.5 (0.2-0.8); MONOCYTES % 10.5 % (4.4-11.3); NEUTROPHILS # (AUTO) 2.6 (2.1-6.9); NEUTROPHILS % 56.2 % (38.7-80.0); PLATELET COUNT 193 x10e3/uL (140-360); RED CELL DISTRIBUTION WIDTH 16.2 % (11.7-14.4)
[2020-10-25] MEDS: DEXTROSE 5% 1,000 ML IV SCH (07:10)
[2020-10-25] MEDS: INSULIN REGULAR, HUMAN 100 UNIT/1 ML 3ML VIAL SQ SCH ×4 (07:30→21:00)
[2020-10-25] MEDS ORDERED: THIAMINE HCL INJ 100 MG/ML 2ML VIAL ONE (08:01)
[2020-10-25] MEDS ORDERED: SODIUM CHLORIDE 0.9% 50ML 50 ML ONE (08:03)
[2020-10-25] MEDS: WARFARIN SOD 2 MG TAB PO SCH (08:08)
[2020-10-25] MEDS: FAMOTIDINE 20 MG/2 ML VIAL IV SCH (08:08)
[2020-10-25] MEDS: LIDOCAINE 4% PATCH TP SCH (08:09)
[2020-10-25] MEDS: THIAMINE HCL INJ 100 MG in SODIUM CHLORIDE 0.9% 50ML 50 ML IV SCH (08:10)
[2020-10-25] MEDS ORDERED: WARFARIN SOD 1 MG TAB PO ONE (11:30)
[2020-10-25] MEDS: HEPARIN 25,000 UNIT 1,200 UNIT in DEXTROSE 5% 250ML 250 ML IV SCH (12:15)
[2020-10-26] VITALS (8 sets, daily range): BP systolic 98–124; BP diastolic 61–79
[2020-10-26 05:29] LABS: ALBUMIN 2.3 g/dL (3.5-5.0); ALBUMIN/GLOBULIN RATIO 0.7 (0.8-2.0); ANION GAP 14.3 mmol/L (8-16); CALCIUM 8.1 mg/dL (8.4-10.2); CREATININE, SERUM 3.16 mg/dL (0.57-1.11); POTASSIUM 4.3 mmol/L (3.5-5.1)
[2020-10-26] MEDS: INSULIN REGULAR, HUMAN 100 UNIT/1 ML 3ML VIAL SQ SCH ×4 (07:30→20:52)
[2020-10-26] MEDS ORDERED: THIAMINE HCL INJ 100 MG/ML 2ML VIAL ONE (08:52)
[2020-10-26 08:54] LABS: BASOPHILS % 1.2 % (0.0-1.0); EOSINOPHILS # (AUTO) 0.3 (0.0-0.4); EOSINOPHILS % 8.1 % (0.0-6.0); HEMATOCRIT 25.8 % (34.2-44.1); HEMOGLOBIN 8.2 g/dL (12.0-16.0); LYMPHOCYTES % 30.7 % (18.0-39.1); MEAN CORPUSCULAR HEMOGLOBIN 30.3 pg (28-32); MEAN CORPUSCULAR HGB CONC 31.8 g/dL (31-35); MEAN CORPUSCULAR VOLUME 95.2 fL (81-99); MONOCYTES # (AUTO) 0.4 (0.2-0.8); MONOCYTES % 13.3 % (4.4-11.3); NEUTROPHILS # (AUTO) 1.5 (2.1-6.9); NEUTROPHILS % 46.4 % (38.7-80.0); PLATELET COUNT 169 x10e3/uL (140-360); RED BLOOD COUNT 2.71 x10e6/uL (3.6-5.1); RED CELL DISTRIBUTION WIDTH 16.7 % (11.7-14.4)
[2020-10-26] MEDS ORDERED: WARFARIN SOD 2 MG TAB PO SCH (09:00)
[2020-10-26] MEDS: THIAMINE HCL INJ 100 MG in SODIUM CHLORIDE 0.9% 50ML 50 ML IV SCH (10:54)
[2020-10-26] MEDS: LIDOCAINE 4% PATCH TP SCH (10:54)
[2020-10-26] MEDS: WARFARIN SOD 3 MG TAB PO SCH (10:54)
[2020-10-26] MEDS: FAMOTIDINE 20 MG/2 ML VIAL IV SCH (10:54)
[2020-10-26 11:50] LABS: INR 1.31
[2020-10-26] MEDS: HEPARIN 25,000 UNIT 1,200 UNIT in DEXTROSE 5% 250ML 250 ML IV SCH (15:55)
[2020-10-27] VITALS (8 sets, daily range): BP systolic 108–133; BP diastolic 51–65
[2020-10-27 06:56] LABS: INR 1.58; PROTHROMBIN TIME 19.6 seconds (11.9-14.5)
[2020-10-27] MEDS: INSULIN REGULAR, HUMAN 100 UNIT/1 ML 3ML VIAL SQ SCH ×4 (07:30→21:10)
[2020-10-27 07:50] LABS: BASOPHILS % 1.1 % (0.0-1.0); EOSINOPHILS # (AUTO) 0.3 (0.0-0.4); EOSINOPHILS % 6.9 % (0.0-6.0); HEMATOCRIT 26.5 % (34.2-44.1); HEMOGLOBIN 8.4 g/dL (12.0-16.0); LYMPHOCYTES # (AUTO) 1.1 (1.0-3.2); LYMPHOCYTES % 28.4 % (18.0-39.1); MEAN CORPUSCULAR HEMOGLOBIN 30.4 pg (28-32); MEAN CORPUSCULAR HGB CONC 31.7 g/dL (31-35); MONOCYTES # (AUTO) 0.6 (0.2-0.8); MONOCYTES % 14.6 % (4.4-11.3); NEUTROPHILS # (AUTO) 1.8 (2.1-6.9); NEUTROPHILS % 48.7 % (38.7-80.0); PLATELET COUNT 192 x10e3/uL (140-360); RED BLOOD COUNT 2.76 x10e6/uL (3.6-5.1)
[2020-10-27] MEDS ORDERED: THIAMINE HCL INJ 100 MG/ML 2ML VIAL ONE (08:22)
[2020-10-27] MEDS: FAMOTIDINE 20 MG/2 ML VIAL IV SCH (09:56)
[2020-10-27] MEDS: THIAMINE HCL INJ 100 MG in SODIUM CHLORIDE 0.9% 50ML 50 ML IV SCH (09:56)
[2020-10-27] MEDS: LIDOCAINE 4% PATCH TP SCH (09:56)
[2020-10-27] MEDS: WARFARIN SOD 3 MG TAB PO SCH (09:57)
[2020-10-27] MEDS: HEPARIN 25,000 UNIT 1,200 UNIT in DEXTROSE 5% 250ML 250 ML IV SCH (12:15)
[2020-10-28] VITALS (8 sets, daily range): BP systolic 94–135; BP diastolic 47–60
[2020-10-28 06:15] LABS: BASOPHILS # (AUTO) 0.1 (0.0-0.1); BASOPHILS % 1.5 % (0.0-1.0); EOSINOPHILS # (AUTO) 0.2 (0.0-0.4); EOSINOPHILS % 5.5 % (0.0-6.0); HEMATOCRIT 25.1 % (34.2-44.1); LYMPHOCYTES # (AUTO) 1.2 (1.0-3.2); MEAN CORPUSCULAR HEMOGLOBIN 30.9 pg (28-32); MEAN CORPUSCULAR HGB CONC 31.9 g/dL (31-35); MEAN CORPUSCULAR VOLUME 96.9 fL (81-99); MONOCYTES # (AUTO) 0.6 (0.2-0.8); MONOCYTES % 14.3 % (4.4-11.3); NEUTROPHILS # (AUTO) 1.9 (2.1-6.9); NEUTROPHILS % 48.4 % (38.7-80.0); PLATELET COUNT 206 x10e3/uL (140-360); RED BLOOD COUNT 2.59 x10e6/uL (3.6-5.1); RED CELL DISTRIBUTION WIDTH 17.2 % (11.7-14.4)
[2020-10-28 06:48] LABS: ANION GAP 15.1 mmol/L (8-16); CALCIUM 8.3 mg/dL (8.4-10.2); CREATININE, SERUM 3.21 mg/dL (0.57-1.11); POTASSIUM 4.1 mmol/L (3.5-5.1)
[2020-10-28] MEDS: INSULIN REGULAR, HUMAN 100 UNIT/1 ML 3ML VIAL SQ SCH ×4 (07:30→20:40)
[2020-10-28] MEDS ORDERED: SODIUM CHLORIDE 0.9% 50ML 50 ML ONE (08:15)
[2020-10-28] MEDS ORDERED: THIAMINE HCL INJ 100 MG/ML 2ML VIAL ONE (08:15)
[2020-10-28 09:37] LABS: INR 1.99; PROTHROMBIN TIME 23.3 seconds (11.9-14.5)
[2020-10-28] MEDS: FUROSEMIDE 20 MG TAB PO SCH (10:02)
[2020-10-28] MEDS: LIDOCAINE 4% PATCH TP SCH (10:02)
[2020-10-28] MEDS: WARFARIN SOD 3 MG TAB PO SCH (10:03)
[2020-10-28] MEDS: FAMOTIDINE 20 MG/2 ML VIAL IV SCH (10:06)
[2020-10-28] MEDS: THIAMINE HCL INJ 100 MG in SODIUM CHLORIDE 0.9% 50ML 50 ML IV SCH (10:06)
[2020-10-28] MEDS: HEPARIN 25,000 UNIT 1,200 UNIT in DEXTROSE 5% 250ML 250 ML IV SCH (12:15)
[2020-10-28] MEDS: ACETAMINOPHEN 325 MG TAB PO PRN (13:14)
[2020-10-29] VITALS: BP 92/63
[2020-10-29 04:00] VITALS: BP 116/49
[2020-10-29] MEDS: HEPARIN 25,000 UNIT 1,200 UNIT in DEXTROSE 5% 250ML 250 ML IV SCH (05:30)
[2020-10-29 05:37] LABS: ANION GAP 14.3 mmol/L (8-16); CALCIUM 8.6 mg/dL (8.4-10.2); CREATININE, SERUM 3.03 mg/dL (0.57-1.11); POTASSIUM 4.3 mmol/L (3.5-5.1)
[2020-10-29 05:50] LABS: INR 2.54; PROTHROMBIN TIME 28.1 seconds (11.9-14.5)
[2020-10-29] MEDS: INSULIN REGULAR, HUMAN 100 UNIT/1 ML 3ML VIAL SQ SCH ×2 (07:30→11:30)
[2020-10-29] MEDS ORDERED: THIAMINE HCL INJ 100 MG/ML 2ML VIAL ONE (07:38)
[2020-10-29 08:00] VITALS: BP 124/56
[2020-10-29] MEDS ORDERED: ONDANSETRON HCL 4 MG ORAL DISINTEGRATING TAB PO PRN (08:30)
[2020-10-29 08:53] VITALS: BP 124/56
[2020-10-29] MEDS: FAMOTIDINE 20 MG/2 ML VIAL IV SCH (08:54)
[2020-10-29] MEDS: FUROSEMIDE 20 MG TAB PO SCH (08:54)
[2020-10-29] MEDS: THIAMINE HCL INJ 100 MG in SODIUM CHLORIDE 0.9% 50ML 50 ML IV SCH (09:00)
[2020-10-29] MEDS: LIDOCAINE 4% PATCH TP SCH (09:00)
[2020-10-29] MEDS: WARFARIN SOD 3 MG TAB PO SCH (10:00)
[2020-10-29 12:07] VITALS: BP 126/51
[2020-10-30] MEDS ORDERED: THIAMINE HCL 100 MG TAB PO SCH (09:00)
== END 2020-10-29 14:45 | DRG 871 ==
LOC: ER 16:21 → ERHOLD 18:59 → ICU 20:22 → MED/SURG3 10-20 00:23 → ICU 10-20 08:52 → MED/SURG2 10-21 21:11
PROVIDERS: ADMIT Internal Medicine; ATTEND Internal Medicine
PROC: 3E043XZ Introduction of Vasopressor into Central Vein, Percutaneous Approach (ICD-10-PCS; 2020-10-13)
PROC: 02HV33Z Insertion of Infusion Device into Superior Vena Cava, Percutaneous Approach (ICD-10-PCS; 2020-10-13)
PROC: 02HV33Z Insertion of Infusion Device into Superior Vena Cava, Percutaneous Approach (ICD-10-PCS; principal; 2020-10-20)
PROC: B548ZZA Ultrasonography of Superior Vena Cava, Guidance (ICD-10-PCS; 2020-10-20)
PROC: 5A09357 Assistance with Respiratory Ventilation, Less than 24 Consecutive Hours, Continuous Positive Airway Pressure (ICD-10-PCS; 2020-10-20)
DX: A41.9 Sepsis, unspecified organism (principal); R65.21 Severe sepsis with septic shock; I50.23 Acute on chronic systolic (congestive) heart failure; G93.41 Metabolic encephalopathy; J96.00 Acute respiratory failure, unspecified whether with hypoxia or hypercapnia; I63.9 Cerebral infarction, unspecified; N17.0 Acute kidney failure with tubular necrosis; N39.0 Urinary tract infection, site not specified; I13.0 Hypertensive heart and chronic kidney disease with heart failure and stage 1 through stage 4 chronic kidney disease, or unspecified chronic kidney disease; E87.1 Hypo-osmolality and hyponatremia; F03.91 Unspecified dementia, unspecified severity, with behavioral disturbance; I82.413 Acute embolism and thrombosis of femoral vein, bilateral; N18.4 Chronic kidney disease, stage 4 (severe); I48.91 Unspecified atrial fibrillation; E03.9 Hypothyroidism, unspecified; D64.9 Anemia, unspecified; Z79.01 Long term (current) use of anticoagulants; Z88.5 Allergy status to narcotic agent; Z20.822 Contact with and (suspected) exposure to COVID-19; E11.22 Type 2 diabetes mellitus with diabetic chronic kidney disease; E87.5 Hyperkalemia; R91.1 Solitary pulmonary nodule; E66.9 Obesity, unspecified; Z68.38 Body mass index [BMI] 38.0-38.9, adult; R53.81 Other malaise
CPT/HCPCS: 36415; 36555; 36600; 51700; 70450; 70551; 71045; 72125; 76770; 80048; 80053; 81001; 82140; 82550; 82553; 82570; 82607; 82805; 82948; 83605; 83615; 83735; 83880; 84100; 84132; 84300; 84425; 84436; 84439; 84443; 84484; 84550; 85025; 85610; 85651; 85730; 86592; 86850; 86900; 87040; 87086; 93005; 93306; 93880; 93970; 94640; 94660; 95812; 96361; 97139; 99251; 99284; J0610; J0692; J1610; J1644; J1817; J1940; J2001; J2060; J3370; J3411; J3475; J3480; J7030; J7040; J7050; J7070; J7799; U0002

== ENCOUNTER 2020-12-20 12:39 | Emergency (ER) | payer MEDICARE ==
[~2020-12-20] VITALS: Ht 162.6 cm; Wt 79.4 kg
[2020-12-20 15:36] VITALS: BP 122/67
== END 2020-12-20 15:40 ==
LOC: ER 13:00
DX: S70.01XA Contusion of right hip, initial encounter (principal); S30.0XXA Contusion of lower back and pelvis, initial encounter; W06.XXXA Fall from bed, initial encounter; Y92.128 Other place in nursing home as the place of occurrence of the external cause; E11.9 Type 2 diabetes mellitus without complications; I50.9 Heart failure, unspecified; I48.91 Unspecified atrial fibrillation; E03.9 Hypothyroidism, unspecified; D64.9 Anemia, unspecified; Z86.718 Personal history of other venous thrombosis and embolism
CPT/HCPCS: 70450; 71045; 99284

== ENCOUNTER 2021-01-30 13:46 | Inpatient (IN) | payer MEDICARE ==
[~2021-01-30] VITALS: Ht 157.5 cm; Wt 70.8 kg
[2021-01-30 14:57] LABS: BASOPHILS # (AUTO) 0.1 (0.0-0.1); BASOPHILS % 0.7 % (0.0-1.0); EOSINOPHILS % 0.4 % (0.0-6.0); HEMATOCRIT 26.5 % (34.2-44.1); HEMOGLOBIN 8.6 g/dL (12.0-16.0); LYMPHOCYTES # (AUTO) 1.2 (1.0-3.2); LYMPHOCYTES % 17.9 % (18.0-39.1); MEAN CORPUSCULAR HEMOGLOBIN 31.7 pg (28-32); MEAN CORPUSCULAR HGB CONC 32.5 g/dL (31-35); MEAN CORPUSCULAR VOLUME 97.8 fL (81-99); MONOCYTES # (AUTO) 0.6 (0.2-0.8); MONOCYTES % 8.3 % (4.4-11.3); NEUTROPHILS # (AUTO) 4.9 (2.1-6.9); NEUTROPHILS % 72.4 % (38.7-80.0); PLATELET COUNT 241 x10e3/uL (140-360); RED BLOOD COUNT 2.71 x10e6/uL (3.6-5.1); RED CELL DISTRIBUTION WIDTH 14.6 % (11.7-14.4)
[2021-01-30 15:11] LABS: ALBUMIN 3.6 g/dL (3.5-5.0); ALBUMIN/GLOBULIN RATIO 1.2 (0.8-2.0); ANION GAP 18.9 mmol/L (8-16); CALCIUM 9.2 mg/dL (8.4-10.2); CREATININE, SERUM 3.42 mg/dL (0.57-1.11); POTASSIUM 3.9 mmol/L (3.5-5.1)
[2021-01-30] MEDS: MORPHINE SULFATE INJ 4 MG/ML INJ 1ML IV PRN (15:49)
[2021-01-30 16:20] LABS: INR 15.73; PROTHROMBIN TIME 118.8 seconds (11.9-14.5)
[2021-01-30] MEDS ORDERED: PHYTONADIONE 10 MG/ML AMP SC ONE (16:30)
[2021-01-30] MEDS ORDERED: FENTANYL CITRATE/PF 100MCG/2 ML INJ IV ONE (17:00)
[2021-01-30 17:58] VITALS: BP 140/57
[2021-01-30 18:02] VITALS: BP 140/57
[2021-01-30 18:32] VITALS: BP 140/57
[2021-01-30] MEDS ORDERED: FUROSEMIDE40 MG PO (18:39)
[2021-01-30] MEDS ORDERED: WARFARIN SODIUM5 MG PO (18:40)
[2021-01-30] MEDS ORDERED: STOOL SOFTNER PO (19:07)
[2021-01-30] MEDS ORDERED: DEXTROSE 50% SYRINGE 50 ML IV PRN (19:45)
[2021-01-30 20:00] VITALS: BP 115/60
[2021-01-30] MEDS: INSULIN REGULAR, HUMAN 100 UNIT/1 ML SQ SCH (21:00)
[2021-01-30] MEDS: CALCIUM CARBONATE 500 MG CHEWABLE TABS PO SCH ×2 (21:36→22:00)
[2021-01-30] MEDS: ACETAMINOPHEN 325 MG TAB PO PRN (22:17)
[2021-01-30] MEDS ORDERED: STOOL SOFTNER PO SCH (23:00)
[2021-01-31] VITALS (14 sets, daily range): BP systolic 81–138; BP diastolic 38–60
[2021-01-31] MEDS ORDERED: SODIUM CHLORIDE 0.9% 500ML 500 ML ONE (04:18)
[2021-01-31] MEDS ORDERED: SODIUM CHLORIDE 0.9% 500ML 500 ML IV ONE ×2 (04:45→12:30)
[2021-01-31 05:13] LABS: BASOPHILS # (AUTO) 0.1 (0.0-0.1); BASOPHILS % 1.1 % (0.0-1.0); EOSINOPHILS # (AUTO) 0.1 (0.0-0.4); EOSINOPHILS % 1.5 % (0.0-6.0); HEMATOCRIT 23.4 % (34.2-44.1); HEMOGLOBIN 7.3 g/dL (12.0-16.0); LYMPHOCYTES # (AUTO) 1.3 (1.0-3.2); LYMPHOCYTES % 19.7 % (18.0-39.1); MEAN CORPUSCULAR HEMOGLOBIN 31.2 pg (28-32); MEAN CORPUSCULAR HGB CONC 31.2 g/dL (31-35); MONOCYTES # (AUTO) 0.6 (0.2-0.8); MONOCYTES % 9.7 % (4.4-11.3); NEUTROPHILS # (AUTO) 4.5 (2.1-6.9); NEUTROPHILS % 67.5 % (38.7-80.0); PLATELET COUNT 202 x10e3/uL (140-360); RED BLOOD COUNT 2.34 x10e6/uL (3.6-5.1); RED CELL DISTRIBUTION WIDTH 14.6 % (11.7-14.4)
[2021-01-31 05:56] LABS: ANION GAP 14.6 mmol/L (8-16); CALCIUM 8.9 mg/dL (8.4-10.2); CREATININE, SERUM 3.38 mg/dL (0.57-1.11); POTASSIUM 3.6 mmol/L (3.5-5.1)
[2021-01-31] MEDS: CALCIUM CARBONATE 500 MG CHEWABLE TABS PO SCH ×3 (06:00→22:00)
[2021-01-31] MEDS: INSULIN REGULAR, HUMAN 100 UNIT/1 ML SQ SCH ×4 (07:30→21:00)
[2021-01-31 08:40] LABS: INR 9.36; PROTHROMBIN TIME 79.2 seconds (11.9-14.5)
[2021-01-31] MEDS ORDERED: SODIUM CHLORIDE 0.45% 1,000 ML IV ONE (09:00)
[2021-01-31 09:04] LABS: CHOL/HDL RATIO 3.5 (3.0-3.6)
[2021-01-31 09:33] LABS: FERRITIN 84.31 ng/mL (4.63-204.00)
[2021-01-31] MEDS ORDERED: DOCUSATE SODIUM 100 MG CAP PO PRN (12:30)
[2021-01-31] MEDS ORDERED: FENTANYL 50 MCG/HR PATCH TOP SCH (12:30)
[2021-01-31] MEDS ORDERED: SODIUM CHLORIDE 0.9% 250ML 250 ML IV ONE (12:30)
[2021-01-31] MEDS: LATANOPROST(OPTH) 2.5 ML BTL OU SCH (21:00)
[2021-01-31] MEDS ORDERED: SODIUM CHLORIDE 0.9% 250ML 250 ML ONE (22:16)
[2021-02-01] VITALS (11 sets, daily range): BP systolic 99–113; BP diastolic 49–80
[2021-02-01] MEDS ORDERED: SODIUM CHLORIDE 0.9% 250ML 250 ML ONE ×2 (00:37→22:58)
[2021-02-01] MEDS: SODIUM CHLORIDE 0.9% 1000ML 500 ML IV SCH ×6 (01:30→21:20)
[2021-02-01] MEDS: CALCIUM CARBONATE 500 MG CHEWABLE TABS PO SCH ×3 (06:00→21:20)
[2021-02-01 06:56] LABS: ALBUMIN/GLOBULIN RATIO 1.4 (0.8-2.0); ANION GAP 12.9 mmol/L (8-16); CALCIUM 7.7 mg/dL (8.4-10.2); CREATININE, SERUM 2.84 mg/dL (0.57-1.11); POTASSIUM 3.9 mmol/L (3.5-5.1)
[2021-02-01] MEDS: INSULIN REGULAR, HUMAN 100 UNIT/1 ML SQ SCH ×4 (07:30→21:00)
[2021-02-01 10:44] LABS: HEMATOCRIT 20.7 % (34.2-44.1); HEMOGLOBIN 6.8 g/dL (12.0-16.0)
[2021-02-01 10:47] LABS: INR 1.52; PROTHROMBIN TIME 18.6 seconds (11.9-14.5)
[2021-02-01] MEDS ORDERED: SODIUM CHLORIDE 0.9% 250ML 250 ML IV ONE (11:00)
[2021-02-01] MEDS: LATANOPROST(OPTH) 2.5 ML BTL OU SCH (21:20)
[2021-02-02] VITALS (8 sets, daily range): BP systolic 107–133; BP diastolic 46–77
[2021-02-02] MEDS: SODIUM CHLORIDE 0.9% 1000ML 500 ML IV SCH ×6 (01:30→21:30)
[2021-02-02] MEDS: ACETAMINOPHEN 325 MG TAB PO PRN (06:10)
[2021-02-02] MEDS: CALCIUM CARBONATE 500 MG CHEWABLE TABS PO SCH ×3 (06:17→21:46)
[2021-02-02 07:27] LABS: HEMOGLOBIN 9.3 g/dL (12.0-16.0)
[2021-02-02] MEDS: INSULIN REGULAR, HUMAN 100 UNIT/1 ML SQ SCH ×4 (07:30→20:39)
[2021-02-02 07:48] LABS: ALBUMIN 2.8 g/dL (3.5-5.0); ALBUMIN/GLOBULIN RATIO 1.2 (0.8-2.0); ANION GAP 10.8 mmol/L (8-16); CALCIUM 7.6 mg/dL (8.4-10.2); CREATININE, SERUM 2.3 mg/dL (0.57-1.11); POTASSIUM 3.8 mmol/L (3.5-5.1)
[2021-02-02] MEDS: MORPHINE SULFATE INJ 4 MG/ML INJ 1ML IV PRN (10:42)
[2021-02-02] MEDS: LATANOPROST(OPTH) 2.5 ML BTL OU SCH (21:45)
[2021-02-03 00:07] VITALS: BP 113/60
[2021-02-03] MEDS: SODIUM CHLORIDE 0.9% 1000ML 500 ML IV SCH ×2 (01:30→05:30)
[2021-02-03 04:25] VITALS: BP 145/79
[2021-02-03] MEDS: CALCIUM CARBONATE 500 MG CHEWABLE TABS PO SCH (05:37)
[2021-02-03 06:24] LABS: BASOPHILS % 0.2 % (0.0-1.0); EOSINOPHILS # (AUTO) 0.2 (0.0-0.4); EOSINOPHILS % 2.9 % (0.0-6.0); HEMATOCRIT 29.8 % (34.2-44.1); HEMOGLOBIN 9.6 g/dL (12.0-16.0); LYMPHOCYTES % 17.4 % (18.0-39.1); MEAN CORPUSCULAR HGB CONC 32.2 g/dL (31-35); MEAN CORPUSCULAR VOLUME 93.1 fL (81-99); MONOCYTES # (AUTO) 0.6 (0.2-0.8); MONOCYTES % 10.2 % (4.4-11.3); NEUTROPHILS # (AUTO) 3.8 (2.1-6.9); NEUTROPHILS % 68.8 % (38.7-80.0); PLATELET COUNT 150 x10e3/uL (140-360); RED CELL DISTRIBUTION WIDTH 17.1 % (11.7-14.4)
[2021-02-03 06:42] LABS: ANION GAP 12.4 mmol/L (8-16); CALCIUM 7.8 mg/dL (8.4-10.2); CREATININE, SERUM 2.11 mg/dL (0.57-1.11); POTASSIUM 4.4 mmol/L (3.5-5.1)
[2021-02-03 06:54] LABS: INR 1.4; PROTHROMBIN TIME 17.4 seconds (11.9-14.5)
[2021-02-03] MEDS ORDERED: ACETAMINOPHEN325 M1 PO (07:08)
[2021-02-03] MEDS ORDERED: GABAPENTIN100 MG PO (07:08)
[2021-02-03] MEDS: INSULIN REGULAR, HUMAN 100 UNIT/1 ML SQ SCH (07:30)
[2021-02-03 08:37] VITALS: BP 129/83
[2021-02-03 09:00] VITALS: BP 129/83
== END 2021-02-03 09:54 | disposition home or self-care (01) | DRG 556 ==
LOC: ER 14:00 → ERHOLD 16:10 → MED/SURG 17:53
PROVIDERS: ADMIT Internal Medicine; ATTEND Internal Medicine
PROC: 30233L1 Transfusion of Nonautologous Fresh Plasma into Peripheral Vein, Percutaneous Approach (ICD-10-PCS; 2021-01-31)
PROC: 30233K1 Transfusion of Nonautologous Frozen Plasma into Peripheral Vein, Percutaneous Approach (ICD-10-PCS; 2021-01-31)
PROC: 30233N1 Transfusion of Nonautologous Red Blood Cells into Peripheral Vein, Percutaneous Approach (ICD-10-PCS; principal; 2021-02-01)
DX: M79.81 Nontraumatic hematoma of soft tissue (principal); N17.9 Acute kidney failure, unspecified; I13.0 Hypertensive heart and chronic kidney disease with heart failure and stage 1 through stage 4 chronic kidney disease, or unspecified chronic kidney disease; I48.20 Chronic atrial fibrillation, unspecified; N18.4 Chronic kidney disease, stage 4 (severe); E11.21 Type 2 diabetes mellitus with diabetic nephropathy; T45.515A Adverse effect of anticoagulants, initial encounter; E03.9 Hypothyroidism, unspecified; E11.22 Type 2 diabetes mellitus with diabetic chronic kidney disease; I50.9 Heart failure, unspecified; Z86.718 Personal history of other venous thrombosis and embolism; Z79.01 Long term (current) use of anticoagulants; Z88.5 Allergy status to narcotic agent; D64.9 Anemia, unspecified; W19.XXXA Unspecified fall, initial encounter
CPT/HCPCS: 36415; 80048; 80053; 80061; 82607; 82728; 82948; 83036; 83540; 84466; 85014; 85018; 85025; 85610; 86850; 86900; 86920; 93971; 96372; 97139; 99284; J2270; J3010; J3430; J7030; J7040; J7050; P9016; P9017; U0002

== ENCOUNTER 2021-04-17 05:01 | Inpatient (IN) | payer MEDICARE ==
[~2021-04-17] VITALS: Ht 160 cm; Wt 67.6 kg
[~2021-04-17 05:01] MED LIST changes: +ACETAMINOPHEN325 M1 PO; +FUROSEMIDE40 MG PO; +GABAPENTIN100 MG PO; +STOOL SOFTNER PO; +WARFARIN SODIUM5 MG PO
[2021-04-17] MEDS ORDERED: SODIUM CHLORIDE 0.9% 1000ML 1,000 ML IV STA (05:06)
[2021-04-17] MEDS ORDERED: ACETAMINOPHEN 325 MG TAB PO ONE (05:15)
[2021-04-17] MEDS ORDERED: ONDANSETRON HCL INJ 2MG/ML 2ML 2 MG/ML VIAL IV PRN (05:15)
[2021-04-17 05:33] LABS: BASOPHILS # (AUTO) 0.1 (0.0-0.1); BASOPHILS % 0.4 % (0.0-1.0); EOSINOPHILS % 0.3 % (0.0-6.0); HEMATOCRIT 43.6 % (34.2-44.1); HEMOGLOBIN 14.1 g/dL (12.0-16.0); LYMPHOCYTES # (AUTO) 1.1 (1.0-3.2); LYMPHOCYTES % 7.4 % (18.0-39.1); MEAN CORPUSCULAR HEMOGLOBIN 30.7 pg (28-32); MEAN CORPUSCULAR HGB CONC 32.3 g/dL (31-35); MONOCYTES # (AUTO) 0.7 (0.2-0.8); MONOCYTES % 4.8 % (4.4-11.3); NEUTROPHILS # (AUTO) 12.9 (2.1-6.9); NEUTROPHILS % 86.6 % (38.7-80.0); PLATELET COUNT 274 x10e3/uL (140-360); RED BLOOD COUNT 4.59 x10e6/uL (3.6-5.1); RED CELL DISTRIBUTION WIDTH 13.6 % (11.7-14.4)
[2021-04-17] MEDS ORDERED: CEFEPIME 1 GM in SODIUM CHLORIDE 0.9% 50ML 50 ML IV STA (05:40)
[2021-04-17 06:18] LABS: ALBUMIN 3.7 g/dL (3.5-5.0); CALCIUM 9.3 mg/dL (8.4-10.2); CREATININE, SERUM 3.01 mg/dL (0.57-1.11)
[2021-04-17 06:46] LABS: INR 1.17; PROTHROMBIN TIME 15.4 seconds (11.9-14.5)
[2021-04-17] MEDS: CEFEPIME 1 GM in SODIUM CHLORIDE 0.9% 50ML 50 ML IV SCH (07:21)
[2021-04-17 07:47] LABS: CLARITY,URINE SL CLOUDY (CLEAR); COLOR,URINE YELLOW (YELLOW); KETONES,URINE NEGATIVE (NEGATIVE); LEUKOCYTE ESTERASE ,URINE SMALL (NEGATIVE); NITRITE,URINE NEGATIVE (NEGATIVE); PROTEIN,URINE DIPSTICK 2+ (NEGATIVE); URINE UROBILINOGEN 0.2 mg/dL (0.2 - 1)
[2021-04-17] MEDS ORDERED: SODIUM CHLORIDE 0.9% 1000ML 1,000 ML IV SCH ×2 (08:00)
[2021-04-17] MEDS ORDERED: METRONIDAZOLE 750MG/NS 150ML 150 ML IV ONE (08:15)
[2021-04-17 08:57] LABS: BACTERIA,URINE MODERATE /HPF; EPITHELIAL CELLS,URINE FEW /LPF; RBC,URINE 21-50 /HPF (0-5); WBC,URINE (MAN) 21-50 /HPF (0-5)
[2021-04-17 09:46] VITALS: BP 108/50
[2021-04-17] MEDS ORDERED: ASPIRIN EC81 MG PO (10:21)
[2021-04-17] MEDS ORDERED: LUMIGAN2.5 M1 OP (10:21)
[2021-04-17] MEDS ORDERED: ELIQUIS2.5 MG PO (10:21)
[2021-04-17] MEDS ORDERED: EUTHYROX75 MCG PO (10:21)
[2021-04-17] MEDS ORDERED: OMEPRAZOLE40 MG PO (10:21)
[2021-04-17] MEDS ORDERED: GABAPENTIN100 MG PO (10:21)
[2021-04-17] MEDS ORDERED: LOSARTAN POTASS25 MG PO (10:21)
[2021-04-17] MEDS ORDERED: TRESIBA FL100 UNIT/1 SC (10:23)
[2021-04-17] MEDS ORDERED: DORZOLAMIDE-TIM10 ML OP (10:23)
[2021-04-17] MEDS ORDERED: ZOFRAN4 MG PO (10:23)
[2021-04-17 11:15] VITALS: BP 103/45
[2021-04-17 12:13] LABS: CREATININE,URINE RANDOM 60.14 mg/dL (47-110)
[2021-04-17] MEDS: SODIUM BICARBONATE 8.4% SYRING 75 ML in SODIUM CHLORIDE 0.45% 1,000 ML IV SCH ×2 (13:00→18:36)
[2021-04-17 14:51] LABS: INR 1.38; PROTHROMBIN TIME 17.5 seconds (11.9-14.5)
[2021-04-17 14:52] LABS: PARTIAL THROMBOPLASTIN TIME 33.5 seconds (23.8-35.5)
[2021-04-17 14:55] LABS: CHOL/HDL RATIO 3.5 (3.0-3.6)
[2021-04-17 15:33] VITALS: BP 103/51
[2021-04-17] MEDS ORDERED: BIMATOPROST(OPTH) 2.5 ML BOTTLE OP SCH (17:00)
[2021-04-17 20:00] VITALS: BP 103/51
[2021-04-17 20:05] VITALS: BP 117/80
[2021-04-17] MEDS: BIMATOPROST(OPTH) 2.5 ML BOTTLE OP SCH (20:05)
[2021-04-17] MEDS: INSULIN DEGLUDEC 12 UNIT SC SCH (20:06)
[2021-04-18] VITALS (8 sets, daily range): BP systolic 107–144; BP diastolic 55–82
[2021-04-18] MEDS: Morphine 4mg Syringe 4 MG/ML INJ IV PRN (01:32)
[2021-04-18] MEDS: ONDANSETRON HCL INJ 2MG/ML 2ML 2 MG/ML VIAL IV PRN (01:52)
[2021-04-18] MEDS: SODIUM BICARBONATE 8.4% SYRING 75 ML in SODIUM CHLORIDE 0.45% 1,000 ML IV SCH ×2 (04:32→17:24)
[2021-04-18 04:58] LABS: BASOPHILS % 0.4 % (0.0-1.0); EOSINOPHILS # (AUTO) 0.1 (0.0-0.4); EOSINOPHILS % 0.8 % (0.0-6.0); HEMATOCRIT 34.5 % (34.2-44.1); HEMOGLOBIN 11.4 g/dL (12.0-16.0); LYMPHOCYTES # (AUTO) 1.3 (1.0-3.2); LYMPHOCYTES % 12.9 % (18.0-39.1); MEAN CORPUSCULAR HEMOGLOBIN 30.4 pg (28-32); MONOCYTES # (AUTO) 0.6 (0.2-0.8); MONOCYTES % 5.6 % (4.4-11.3); NEUTROPHILS # (AUTO) 7.9 (2.1-6.9); NEUTROPHILS % 79.9 % (38.7-80.0); PLATELET COUNT 194 x10e3/uL (140-360); RED BLOOD COUNT 3.75 x10e6/uL (3.6-5.1); RED CELL DISTRIBUTION WIDTH 13.6 % (11.7-14.4)
[2021-04-18 05:26] LABS: ALBUMIN 2.7 g/dL (3.5-5.0); ALBUMIN/GLOBULIN RATIO 0.9 (0.8-2.0); ANION GAP 15.9 mmol/L (8-16); CALCIUM 8.2 mg/dL (8.4-10.2); CREATININE, SERUM 2.39 mg/dL (0.57-1.11); MAGNESIUM 1.8 MG/DL (1.3-2.1); PHOSPHORUS 3.8 MG/DL (2.3-4.7)
[2021-04-18 05:38] LABS: POTASSIUM 3.9 mmol/L (3.5-5.1)
[2021-04-18] MEDS ORDERED: DEXTROSE 50% SYRINGE 50 ML IV ONE ×2 (16:06→16:12)
[2021-04-18] MEDS: BIMATOPROST(OPTH) 2.5 ML BOTTLE OP SCH (20:17)
[2021-04-18] MEDS: INSULIN DEGLUDEC 12 UNIT SC SCH (21:00)
[2021-04-19] VITALS (7 sets, daily range): BP systolic 70–150; BP diastolic 60–78
[2021-04-19] MEDS: Morphine 4mg Syringe 4 MG/ML INJ IV PRN ×2 (00:02→08:30)
[2021-04-19] MEDS: ONDANSETRON HCL INJ 2MG/ML 2ML 2 MG/ML VIAL IV PRN ×2 (00:02→08:30)
[2021-04-19] MEDS ORDERED: METRONIDAZOLE 500MG/NS 100ML 100 ML IV ONE (02:00)
[2021-04-19] MEDS: CEFEPIME 1 GM in SODIUM CHLORIDE 0.9% 50ML 50 ML IV SCH (04:55)
[2021-04-19 04:58] LABS: BASOPHILS # (AUTO) 0.1 (0.0-0.1); BASOPHILS % 0.5 % (0.0-1.0); EOSINOPHILS # (AUTO) 0.1 (0.0-0.4); EOSINOPHILS % 1.3 % (0.0-6.0); HEMOGLOBIN 11.6 g/dL (12.0-16.0); LYMPHOCYTES # (AUTO) 1.5 (1.0-3.2); LYMPHOCYTES % 15.5 % (18.0-39.1); MEAN CORPUSCULAR HEMOGLOBIN 30.4 pg (28-32); MEAN CORPUSCULAR HGB CONC 32.2 g/dL (31-35); MEAN CORPUSCULAR VOLUME 94.2 fL (81-99); MONOCYTES # (AUTO) 0.5 (0.2-0.8); MONOCYTES % 5.1 % (4.4-11.3); NEUTROPHILS # (AUTO) 7.6 (2.1-6.9); NEUTROPHILS % 77.1 % (38.7-80.0); PLATELET COUNT 193 x10e3/uL (140-360); RED BLOOD COUNT 3.82 x10e6/uL (3.6-5.1); RED CELL DISTRIBUTION WIDTH 13.7 % (11.7-14.4)
[2021-04-19 05:20] LABS: ALBUMIN 2.6 g/dL (3.5-5.0); ALBUMIN/GLOBULIN RATIO 0.7 (0.8-2.0); ANION GAP 16.7 mmol/L (8-16); CALCIUM 8.3 mg/dL (8.4-10.2); CREATININE, SERUM 2.25 mg/dL (0.57-1.11); POTASSIUM 3.7 mmol/L (3.5-5.1)
[2021-04-19] MEDS ORDERED: DEXTROSE 50% SYRINGE 50 ML IV ONE (07:32)
[2021-04-19] MEDS: SODIUM BICARBONATE 8.4% SYRING 75 ML in SODIUM CHLORIDE 0.45% 1,000 ML IV SCH (07:44)
[2021-04-19] MEDS: DEXTROSE 5%/0.45% SOD CHL 1,000 ML IV SCH (14:25)
[2021-04-19] MEDS: BIMATOPROST(OPTH) 2.5 ML BOTTLE OP SCH (20:41)
[2021-04-19] MEDS: INSULIN DEGLUDEC 12 UNIT SC SCH (20:42)
[2021-04-20] VITALS (8 sets, daily range): BP systolic 125–153; BP diastolic 70–98
[2021-04-20] MEDS: Morphine 4mg Syringe 4 MG/ML INJ IV PRN ×4 (04:30→20:19)
[2021-04-20] MEDS: CEFEPIME 1 GM in SODIUM CHLORIDE 0.9% 50ML 50 ML IV SCH (04:48)
[2021-04-20] MEDS: DEXTROSE 5%/0.45% SOD CHL 1,000 ML IV SCH (04:48)
[2021-04-20] MEDS: ONDANSETRON HCL INJ 2MG/ML 2ML 2 MG/ML VIAL IV PRN ×2 (04:49→20:19)
[2021-04-20 06:39] LABS: ALBUMIN 2.7 g/dL (3.5-5.0); ALBUMIN/GLOBULIN RATIO 0.8 (0.8-2.0); ANION GAP 15.7 mmol/L (8-16); CALCIUM 8.8 mg/dL (8.4-10.2); CREATININE, SERUM 2.2 mg/dL (0.57-1.11); MAGNESIUM 1.8 MG/DL (1.3-2.1); PHOSPHORUS 3.4 MG/DL (2.3-4.7); POTASSIUM 3.7 mmol/L (3.5-5.1)
[2021-04-20] MEDS: BIMATOPROST(OPTH) 2.5 ML BOTTLE OP SCH (20:18)
[2021-04-20] MEDS: INSULIN DEGLUDEC 12 UNIT SC SCH (20:19)
[2021-04-21] VITALS (7 sets, daily range): BP systolic 123–153; BP diastolic 61–97
[2021-04-21] MEDS: DEXTROSE 5%/0.45% SOD CHL 1,000 ML IV SCH ×2 (02:46→22:08)
[2021-04-21] MEDS: CEFEPIME 1 GM in SODIUM CHLORIDE 0.9% 50ML 50 ML IV SCH (05:15)
[2021-04-21] MEDS: Morphine 4mg Syringe 4 MG/ML INJ IV PRN (20:09)
[2021-04-21] MEDS: BIMATOPROST(OPTH) 2.5 ML BOTTLE OP SCH (20:10)
[2021-04-21] MEDS: INSULIN DEGLUDEC 12 UNIT SC SCH (20:18)
[2021-04-22] VITALS (7 sets, daily range): BP systolic 121–166; BP diastolic 75–89
[2021-04-22 05:31] LABS: BASOPHILS % 0.5 % (0.0-1.0); EOSINOPHILS # (AUTO) 0.2 (0.0-0.4); EOSINOPHILS % 1.8 % (0.0-6.0); HEMATOCRIT 39.7 % (34.2-44.1); HEMOGLOBIN 12.6 g/dL (12.0-16.0); LYMPHOCYTES # (AUTO) 1.2 (1.0-3.2); LYMPHOCYTES % 14.2 % (18.0-39.1); MEAN CORPUSCULAR HEMOGLOBIN 29.9 pg (28-32); MEAN CORPUSCULAR HGB CONC 31.7 g/dL (31-35); MEAN CORPUSCULAR VOLUME 94.3 fL (81-99); MONOCYTES # (AUTO) 0.8 (0.2-0.8); MONOCYTES % 9.9 % (4.4-11.3); NEUTROPHILS # (AUTO) 6.2 (2.1-6.9); PLATELET COUNT 208 x10e3/uL (140-360); RED BLOOD COUNT 4.21 x10e6/uL (3.6-5.1); RED CELL DISTRIBUTION WIDTH 13.2 % (11.7-14.4)
[2021-04-22] MEDS: CEFEPIME 1 GM in SODIUM CHLORIDE 0.9% 50ML 50 ML IV SCH (05:35)
[2021-04-22 06:25] LABS: ALBUMIN 2.6 g/dL (3.5-5.0); ALBUMIN/GLOBULIN RATIO 0.7 (0.8-2.0); ANION GAP 17.8 mmol/L (8-16); CALCIUM 9.1 mg/dL (8.4-10.2); CREATININE, SERUM 2.28 mg/dL (0.57-1.11); MAGNESIUM 1.7 MG/DL (1.3-2.1); PHOSPHORUS 2.9 MG/DL (2.3-4.7); POTASSIUM 3.8 mmol/L (3.5-5.1)
[2021-04-22] MEDS: METOPROLOL TARTRATE 25 MG TAB PO SCH ×2 (10:15→17:27)
[2021-04-22] MEDS: DEXTROSE 5%/0.45% SOD CHL 1,000 ML IV SCH (17:15)
[2021-04-22] MEDS: BIMATOPROST(OPTH) 2.5 ML BOTTLE OP SCH (20:45)
[2021-04-22] MEDS: INSULIN DEGLUDEC 12 UNIT SC SCH (20:46)
[2021-04-23] VITALS (8 sets, daily range): BP systolic 120–153; BP diastolic 48–84
[2021-04-23] MEDS: METOPROLOL TARTRATE 25 MG TAB PO SCH ×3 (02:22→17:22)
[2021-04-23] MEDS: CEFEPIME 1 GM in SODIUM CHLORIDE 0.9% 50ML 50 ML IV SCH (05:25)
[2021-04-23 05:51] LABS: ALBUMIN 2.5 g/dL (3.5-5.0); ALBUMIN/GLOBULIN RATIO 0.7 (0.8-2.0); ANION GAP 13.7 mmol/L (8-16); CALCIUM 8.6 mg/dL (8.4-10.2); CREATININE, SERUM 2.19 mg/dL (0.57-1.11); POTASSIUM 3.7 mmol/L (3.5-5.1)
[2021-04-23] MEDS: INSULIN DEGLUDEC 12 UNIT SC SCH (21:00)
[2021-04-23] MEDS: BIMATOPROST(OPTH) 2.5 ML BOTTLE OP SCH (21:18)
[2021-04-24] VITALS (8 sets, daily range): BP systolic 132–169; BP diastolic 79–93
[2021-04-24] MEDS: METOPROLOL TARTRATE 25 MG TAB PO SCH ×3 (02:03→18:11)
[2021-04-24 05:18] LABS: ANION GAP 12.7 mmol/L (8-16); CALCIUM 9.1 mg/dL (8.4-10.2); CREATININE, SERUM 2.12 mg/dL (0.57-1.11); MAGNESIUM 1.8 MG/DL (1.3-2.1); PHOSPHORUS 3.3 MG/DL (2.3-4.7); POTASSIUM 3.7 mmol/L (3.5-5.1)
[2021-04-24] MEDS: CEFEPIME 1 GM in SODIUM CHLORIDE 0.9% 50ML 50 ML IV SCH (05:20)
[2021-04-24] MEDS ORDERED: DIATRIZOATE MEGL/DIATRIZOA SOD 30 ML BTL PO ONE (15:09)
[2021-04-24] MEDS: BIMATOPROST(OPTH) 2.5 ML BOTTLE OP SCH (20:52)
[2021-04-24] MEDS: INSULIN DEGLUDEC 12 UNIT SC SCH (20:53)
[2021-04-24] MEDS ORDERED: DEXTROSE 50% SYRINGE 50 ML IV PRN (21:00)
[2021-04-24] MEDS: INSULIN REGULAR, HUMAN 100 UNIT/1 ML SQ SCH (21:15)
[2021-04-24] MEDS ORDERED: ACETAMINOPHEN/CODEINE 300MG - 30MG TAB PO PRN (22:30)
[2021-04-24] MEDS: ACETAMINOPHEN 325 MG TAB PO PRN (22:49)
[2021-04-25] VITALS (8 sets, daily range): BP systolic 105–161; BP diastolic 64–85
[2021-04-25] MEDS: ACETAMINOPHEN 325 MG TAB PO PRN (02:54)
[2021-04-25] MEDS: METOPROLOL TARTRATE 25 MG TAB PO SCH ×3 (02:55→18:00)
[2021-04-25 05:02] LABS: BASOPHILS # (AUTO) 0.1 (0.0-0.1); BASOPHILS % 0.4 % (0.0-1.0); EOSINOPHILS # (AUTO) 0.1 (0.0-0.4); EOSINOPHILS % 0.6 % (0.0-6.0); HEMATOCRIT 39.2 % (34.2-44.1); HEMOGLOBIN 12.8 g/dL (12.0-16.0); LYMPHOCYTES % 6.8 % (18.0-39.1); MEAN CORPUSCULAR HEMOGLOBIN 30.1 pg (28-32); MEAN CORPUSCULAR HGB CONC 32.7 g/dL (31-35); MEAN CORPUSCULAR VOLUME 92.2 fL (81-99); MONOCYTES % 6.8 % (4.4-11.3); NEUTROPHILS % 84.8 % (38.7-80.0); PLATELET COUNT 248 x10e3/uL (140-360); RED BLOOD COUNT 4.25 x10e6/uL (3.6-5.1); RED CELL DISTRIBUTION WIDTH 13.2 % (11.7-14.4)
[2021-04-25 05:29] LABS: ALBUMIN 2.6 g/dL (3.5-5.0); ALBUMIN/GLOBULIN RATIO 0.7 (0.8-2.0); CALCIUM 9.1 mg/dL (8.4-10.2); CREATININE, SERUM 2.14 mg/dL (0.57-1.11)
[2021-04-25] MEDS: CEFEPIME 1 GM in SODIUM CHLORIDE 0.9% 50ML 50 ML IV SCH (05:35)
[2021-04-25] MEDS: INSULIN REGULAR, HUMAN 100 UNIT/1 ML SQ SCH ×4 (07:30→21:00)
[2021-04-25] MEDS: SENNOSIDES 8.6 MG TAB PO SCH (09:18)
[2021-04-25] MEDS: ACETAMINOPHEN/CODEINE 300MG - 30MG TAB PO PRN (09:55)
[2021-04-25] MEDS: LACTATED RINGER'S 1,000 ML INJ SCH ×2 (10:20→23:06)
[2021-04-25] MEDS: METRONIDAZOLE 500MG/NS 100ML 100 ML IV SCH ×2 (13:00→23:25)
[2021-04-25] MEDS: ONDANSETRON HCL INJ 2MG/ML 2ML 2 MG/ML VIAL IV PRN (14:07)
[2021-04-25] MEDS ORDERED: SUGAMMADEX SODIUM 200 MG/2 ML VIAL IV ONE (19:21)
[2021-04-25] MEDS ORDERED: SODIUM CHLORIDE 0.9% 250ML 250 ML ONE (19:25)
[2021-04-25] MEDS ORDERED: ACETAMINOPHEN 1000 MG/100 ML 100 ML IV ONE (19:25)
[2021-04-25] MEDS: INSULIN DEGLUDEC 12 UNIT SC SCH (21:00)
[2021-04-25] MEDS ORDERED: Morphine 4mg Syringe 4 MG/ML INJ ONE (21:15)
[2021-04-25] MEDS: BIMATOPROST(OPTH) 2.5 ML BOTTLE OP SCH (23:27)
[2021-04-26 01:10] VITALS: BP 133/75
[2021-04-26] MEDS: METOPROLOL TARTRATE 25 MG TAB PO SCH ×3 (01:56→18:24)
[2021-04-26 03:00] VITALS: BP 149/87
[2021-04-26] MEDS: CEFEPIME 1 GM in SODIUM CHLORIDE 0.9% 50ML 50 ML IV SCH (05:08)
[2021-04-26] MEDS: METRONIDAZOLE 500MG/NS 100ML 100 ML IV SCH ×3 (05:23→20:34)
[2021-04-26 06:45] LABS: BASOPHILS # (AUTO) 0.1 (0.0-0.1); BASOPHILS % 0.4 % (0.0-1.0); HEMOGLOBIN 13.2 g/dL (12.0-16.0); LYMPHOCYTES # (AUTO) 0.7 (1.0-3.2); LYMPHOCYTES % 3.2 % (18.0-39.1); MEAN CORPUSCULAR HEMOGLOBIN 30.5 pg (28-32); MEAN CORPUSCULAR HGB CONC 32.2 g/dL (31-35); MEAN CORPUSCULAR VOLUME 94.7 fL (81-99); MONOCYTES # (AUTO) 0.8 (0.2-0.8); MONOCYTES % 3.7 % (4.4-11.3); NEUTROPHILS # (AUTO) 18.9 (2.1-6.9); NEUTROPHILS % 92.1 % (38.7-80.0); PLATELET COUNT 250 x10e3/uL (140-360); RED BLOOD COUNT 4.33 x10e6/uL (3.6-5.1); RED CELL DISTRIBUTION WIDTH 13.7 % (11.7-14.4)
[2021-04-26 07:00] VITALS: BP 121/82
[2021-04-26 07:05] LABS: CALCIUM 8.1 mg/dL (8.4-10.2); CREATININE, SERUM 2.97 mg/dL (0.57-1.11)
[2021-04-26] MEDS ORDERED: LACTATED RINGER'S 500 ML INJ ONE (08:00)
[2021-04-26 09:00] VITALS: BP 121/82
[2021-04-26] MEDS: LACTATED RINGER'S 1,000 ML INJ SCH ×4 (09:22→20:30)
[2021-04-26] MEDS: INSULIN REGULAR, HUMAN 100 UNIT/1 ML SQ SCH ×4 (09:23→20:34)
[2021-04-26] MEDS: SENNOSIDES 8.6 MG TAB PO SCH (09:23)
[2021-04-26 11:00] VITALS: BP 115/73
[2021-04-26 19:45] VITALS: BP 121/82
[2021-04-26] MEDS: BIMATOPROST(OPTH) 2.5 ML BOTTLE OP SCH (20:34)
[2021-04-26] MEDS: INSULIN DEGLUDEC 12 UNIT SC SCH (21:00)
[2021-04-27] VITALS (9 sets, daily range): BP systolic 114–152; BP diastolic 57–101
[2021-04-27] MEDS: METOPROLOL TARTRATE 25 MG TAB PO SCH ×3 (02:12→18:17)
[2021-04-27 06:00] LABS: BASOPHILS % 0.2 % (0.0-1.0); EOSINOPHILS % 0.1 % (0.0-6.0); HEMATOCRIT 32.3 % (34.2-44.1); HEMOGLOBIN 10.3 g/dL (12.0-16.0); LYMPHOCYTES % 6.5 % (18.0-39.1); MEAN CORPUSCULAR HEMOGLOBIN 29.9 pg (28-32); MEAN CORPUSCULAR HGB CONC 31.9 g/dL (31-35); MEAN CORPUSCULAR VOLUME 93.9 fL (81-99); MONOCYTES # (AUTO) 0.7 (0.2-0.8); MONOCYTES % 4.4 % (4.4-11.3); NEUTROPHILS # (AUTO) 13.7 (2.1-6.9); NEUTROPHILS % 88.2 % (38.7-80.0); PLATELET COUNT 218 x10e3/uL (140-360); RED BLOOD COUNT 3.44 x10e6/uL (3.6-5.1); RED CELL DISTRIBUTION WIDTH 14.2 % (11.7-14.4)
[2021-04-27] MEDS: CEFEPIME 1 GM in SODIUM CHLORIDE 0.9% 50ML 50 ML IV SCH (06:00)
[2021-04-27 06:02] LABS: ANION GAP 14.3 mmol/L (8-16); CALCIUM 8.1 mg/dL (8.4-10.2); CREATININE, SERUM 2.69 mg/dL (0.57-1.11); POTASSIUM 4.3 mmol/L (3.5-5.1)
[2021-04-27] MEDS: ACETAMINOPHEN 325 MG TAB PO PRN (06:35)
[2021-04-27] MEDS: METRONIDAZOLE 500MG/NS 100ML 100 ML IV SCH ×3 (07:00→20:44)
[2021-04-27] MEDS: INSULIN REGULAR, HUMAN 100 UNIT/1 ML SQ SCH ×4 (07:30→20:45)
[2021-04-27] MEDS: LACTATED RINGER'S 1,000 ML INJ SCH ×2 (07:36→10:38)
[2021-04-27] MEDS: SENNOSIDES 8.6 MG TAB PO SCH (09:26)
[2021-04-27] MEDS: ACETAMINOPHEN/CODEINE 300MG - 30MG TAB PO PRN ×2 (14:52→21:06)
[2021-04-27] MEDS: BIMATOPROST(OPTH) 2.5 ML BOTTLE OP SCH (20:45)
[2021-04-27] MEDS: INSULIN DEGLUDEC 12 UNIT SC SCH (20:45)
[2021-04-28] VITALS (8 sets, daily range): BP systolic 105–155; BP diastolic 52–100
[2021-04-28] MEDS: METOPROLOL TARTRATE 25 MG TAB PO SCH ×3 (01:46→18:49)
[2021-04-28] MEDS: ACETAMINOPHEN/CODEINE 300MG - 30MG TAB PO PRN ×2 (02:05→22:50)
[2021-04-28] MEDS: Morphine 4mg Syringe 4 MG/ML INJ IV PRN ×2 (03:16→10:01)
[2021-04-28] MEDS: METRONIDAZOLE 500MG/NS 100ML 100 ML IV SCH ×3 (06:55→21:00)
[2021-04-28] MEDS: LACTATED RINGER'S 1,000 ML INJ SCH ×3 (06:55→21:00)
[2021-04-28] MEDS: INSULIN REGULAR, HUMAN 100 UNIT/1 ML SQ SCH ×4 (06:56→21:00)
[2021-04-28] MEDS: SENNOSIDES 8.6 MG TAB PO SCH (08:47)
[2021-04-28] MEDS: ONDANSETRON HCL INJ 2MG/ML 2ML 2 MG/ML VIAL IV PRN (10:01)
[2021-04-28] MEDS: INSULIN DEGLUDEC 12 UNIT SC SCH (21:00)
[2021-04-28] MEDS: BIMATOPROST(OPTH) 2.5 ML BOTTLE OP SCH (21:00)
[2021-04-29] VITALS (10 sets, daily range): BP systolic 105–167; BP diastolic 54–99
[2021-04-29] MEDS: Morphine 4mg Syringe 4 MG/ML INJ IV PRN ×4 (00:45→16:20)
[2021-04-29] MEDS: METOPROLOL TARTRATE 25 MG TAB PO SCH ×3 (02:37→18:21)
[2021-04-29] MEDS: LACTATED RINGER'S 1,000 ML INJ SCH ×2 (04:14→20:00)
[2021-04-29] MEDS: METRONIDAZOLE 500MG/NS 100ML 100 ML IV SCH ×3 (05:56→22:17)
[2021-04-29 06:35] LABS: ALBUMIN/GLOBULIN RATIO 0.6 (0.8-2.0); ANION GAP 17.2 mmol/L (8-16); CALCIUM 8.4 mg/dL (8.4-10.2); POTASSIUM 4.2 mmol/L (3.5-5.1)
[2021-04-29] MEDS: INSULIN REGULAR, HUMAN 100 UNIT/1 ML SQ SCH ×4 (07:30→20:35)
[2021-04-29 08:39] LABS: BASOPHILS # (AUTO) 0.1 (0.0-0.1); BASOPHILS % 0.5 % (0.0-1.0); EOSINOPHILS # (AUTO) 0.2 (0.0-0.4); HEMATOCRIT 37.7 % (34.2-44.1); HEMOGLOBIN 11.8 g/dL (12.0-16.0); LYMPHOCYTES # (AUTO) 1.9 (1.0-3.2); LYMPHOCYTES % 16.6 % (18.0-39.1); MEAN CORPUSCULAR HEMOGLOBIN 29.9 pg (28-32); MEAN CORPUSCULAR HGB CONC 31.3 g/dL (31-35); MEAN CORPUSCULAR VOLUME 95.7 fL (81-99); MONOCYTES # (AUTO) 0.7 (0.2-0.8); MONOCYTES % 5.9 % (4.4-11.3); NEUTROPHILS # (AUTO) 8.2 (2.1-6.9); NEUTROPHILS % 73.9 % (38.7-80.0); PLATELET COUNT 312 x10e3/uL (140-360); RED BLOOD COUNT 3.94 x10e6/uL (3.6-5.1); RED CELL DISTRIBUTION WIDTH 14.3 % (11.7-14.4)
[2021-04-29] MEDS: SENNOSIDES 8.6 MG TAB PO SCH (09:03)
[2021-04-29] MEDS: BIMATOPROST(OPTH) 2.5 ML BOTTLE OP SCH (20:35)
[2021-04-29] MEDS: INSULIN DEGLUDEC 12 UNIT SC SCH (20:35)
[2021-04-30] VITALS (9 sets, daily range): BP systolic 118–157; BP diastolic 71–115
[2021-04-30] MEDS: METOPROLOL TARTRATE 25 MG TAB PO SCH ×3 (01:54→17:15)
[2021-04-30] MEDS: ONDANSETRON HCL INJ 2MG/ML 2ML 2 MG/ML VIAL IV PRN (02:32)
[2021-04-30] MEDS: Morphine 4mg Syringe 4 MG/ML INJ IV PRN ×2 (02:32→12:40)
[2021-04-30] MEDS: ACETAMINOPHEN/CODEINE 300MG - 30MG TAB PO PRN (04:42)
[2021-04-30 05:35] LABS: BASOPHILS # (AUTO) 0.1 (0.0-0.1); BASOPHILS % 0.8 % (0.0-1.0); EOSINOPHILS # (AUTO) 0.1 (0.0-0.4); EOSINOPHILS % 0.7 % (0.0-6.0); HEMATOCRIT 38.1 % (34.2-44.1); HEMOGLOBIN 11.7 g/dL (12.0-16.0); LYMPHOCYTES # (AUTO) 0.9 (1.0-3.2); MEAN CORPUSCULAR HEMOGLOBIN 29.9 pg (28-32); MEAN CORPUSCULAR HGB CONC 30.7 g/dL (31-35); MEAN CORPUSCULAR VOLUME 97.4 fL (81-99); MONOCYTES # (AUTO) 0.8 (0.2-0.8); MONOCYTES % 6.8 % (4.4-11.3); NEUTROPHILS # (AUTO) 9.6 (2.1-6.9); NEUTROPHILS % 81.6 % (38.7-80.0); PLATELET COUNT 296 x10e3/uL (140-360); RED BLOOD COUNT 3.91 x10e6/uL (3.6-5.1); RED CELL DISTRIBUTION WIDTH 14.4 % (11.7-14.4)
[2021-04-30 05:52] LABS: ALBUMIN 2.1 g/dL (3.5-5.0); ALBUMIN/GLOBULIN RATIO 0.6 (0.8-2.0); ANION GAP 18.3 mmol/L (8-16); CALCIUM 8.2 mg/dL (8.4-10.2); CREATININE, SERUM 1.9 mg/dL (0.57-1.11); MAGNESIUM 1.4 MG/DL (1.3-2.1); PHOSPHORUS 3.1 MG/DL (2.3-4.7); POTASSIUM 4.3 mmol/L (3.5-5.1)
[2021-04-30] MEDS: METRONIDAZOLE 500MG/NS 100ML 100 ML IV SCH ×2 (06:00→13:26)
[2021-04-30] MEDS: INSULIN REGULAR, HUMAN 100 UNIT/1 ML SQ SCH ×4 (07:30→21:00)
[2021-04-30] MEDS: SENNOSIDES 8.6 MG TAB PO SCH (09:40)
[2021-04-30] MEDS: SODIUM BICARBONATE 8.4% SYRING 75 ML in SODIUM CHLORIDE 0.45% 1,000 ML IV SCH (13:26)
[2021-04-30] MEDS: BIMATOPROST(OPTH) 2.5 ML BOTTLE OP SCH (21:00)
[2021-04-30] MEDS: INSULIN DEGLUDEC 12 UNIT SC SCH (21:00)
[2021-05-01] VITALS (7 sets, daily range): BP systolic 110–151; BP diastolic 73–95
[2021-05-01] MEDS: SODIUM BICARBONATE 8.4% SYRING 75 ML in SODIUM CHLORIDE 0.45% 1,000 ML IV SCH ×2 (02:30→15:07)
[2021-05-01] MEDS: METOPROLOL TARTRATE 25 MG TAB PO SCH ×3 (02:30→17:47)
[2021-05-01 06:43] LABS: ALBUMIN 1.9 g/dL (3.5-5.0); ALBUMIN/GLOBULIN RATIO 0.6 (0.8-2.0); CALCIUM 8.3 mg/dL (8.4-10.2); CREATININE, SERUM 1.83 mg/dL (0.57-1.11)
[2021-05-01] MEDS: INSULIN REGULAR, HUMAN 100 UNIT/1 ML SQ SCH ×4 (07:30→20:47)
[2021-05-01] MEDS: SENNOSIDES 8.6 MG TAB PO SCH (08:50)
[2021-05-01] MEDS: Morphine 4mg Syringe 4 MG/ML INJ IV PRN ×2 (10:02→16:37)
[2021-05-01] MEDS: ONDANSETRON HCL INJ 2MG/ML 2ML 2 MG/ML VIAL IV PRN (10:02)
[2021-05-01] MEDS: INSULIN DEGLUDEC 12 UNIT SC SCH (20:48)
[2021-05-01] MEDS: BIMATOPROST(OPTH) 2.5 ML BOTTLE OP SCH (20:51)
[2021-05-02] VITALS: BP 140/86
[2021-05-02] MEDS: Morphine 4mg Syringe 4 MG/ML INJ IV PRN ×2 (01:01→16:10)
[2021-05-02] MEDS: METOPROLOL TARTRATE 25 MG TAB PO SCH ×3 (01:02→17:07)
[2021-05-02 05:21] VITALS: BP 147/100
[2021-05-02 06:24] LABS: BASOPHILS % 0.4 % (0.0-1.0); EOSINOPHILS # (AUTO) 0.1 (0.0-0.4); EOSINOPHILS % 0.9 % (0.0-6.0); HEMOGLOBIN 11.2 g/dL (12.0-16.0); LYMPHOCYTES # (AUTO) 1.5 (1.0-3.2); LYMPHOCYTES % 13.2 % (18.0-39.1); MEAN CORPUSCULAR HEMOGLOBIN 30.4 pg (28-32); MEAN CORPUSCULAR HGB CONC 32.9 g/dL (31-35); MEAN CORPUSCULAR VOLUME 92.1 fL (81-99); MONOCYTES # (AUTO) 0.9 (0.2-0.8); NEUTROPHILS # (AUTO) 8.4 (2.1-6.9); PLATELET COUNT 279 x10e3/uL (140-360); RED BLOOD COUNT 3.69 x10e6/uL (3.6-5.1); RED CELL DISTRIBUTION WIDTH 14.4 % (11.7-14.4)
[2021-05-02 06:47] LABS: ALBUMIN/GLOBULIN RATIO 0.6 (0.8-2.0); ANION GAP 16.6 mmol/L (8-16); CREATININE, SERUM 1.74 mg/dL (0.57-1.11); POTASSIUM 3.6 mmol/L (3.5-5.1)
[2021-05-02] MEDS: INSULIN REGULAR, HUMAN 100 UNIT/1 ML SQ SCH ×3 (07:30→16:07)
[2021-05-02 08:32] VITALS: BP 156/76
[2021-05-02] MEDS ORDERED: DEXTROSE 5%/0.45% SOD CHL 1,000 ML IV SCH (10:45)
[2021-05-02] MEDS: SENNOSIDES 8.6 MG TAB PO SCH (11:05)
[2021-05-02 11:46] VITALS: BP 145/86
[2021-05-02 16:16] VITALS: BP 145/76
[2021-05-02 20:00] VITALS: BP 129/72
== END 2021-05-02 22:22 | DRG 853 ==
LOC: ER 05:12 → ERHOLD 07:55 → MED/SURG2 09:31 → IMCU 04-25 21:40 → MED/SURG3 04-29 01:00
PROVIDERS: ADMIT Internal Medicine; ATTEND Internal Medicine
PROC: 0DBN0ZZ Excision of Sigmoid Colon, Open Approach (ICD-10-PCS; principal; 2021-04-25 17:00)
PROC: 0DBP0ZZ Excision of Rectum, Open Approach (ICD-10-PCS; 2021-04-25 17:00)
PROC: 0D1N0Z4 Bypass Sigmoid Colon to Cutaneous, Open Approach (ICD-10-PCS; 2021-04-25 17:00)
PROC: 02HV33Z Insertion of Infusion Device into Superior Vena Cava, Percutaneous Approach (ICD-10-PCS; 2021-04-30)
DX: A41.9 Sepsis, unspecified organism (principal); K65.0 Generalized (acute) peritonitis; K57.40 Diverticulitis of both small and large intestine with perforation and abscess without bleeding; N39.0 Urinary tract infection, site not specified; N18.4 Chronic kidney disease, stage 4 (severe); I48.20 Chronic atrial fibrillation, unspecified; N17.9 Acute kidney failure, unspecified; E87.2 Acidosis; E03.9 Hypothyroidism, unspecified; E78.5 Hyperlipidemia, unspecified; E66.9 Obesity, unspecified; Z86.16 Personal history of COVID-19; Z86.718 Personal history of other venous thrombosis and embolism; Z88.5 Allergy status to narcotic agent; E11.22 Type 2 diabetes mellitus with diabetic chronic kidney disease; R53.81 Other malaise; I12.9 Hypertensive chronic kidney disease with stage 1 through stage 4 chronic kidney disease, or unspecified chronic kidney disease; D63.1 Anemia in chronic kidney disease; Z68.26 Body mass index [BMI] 26.0-26.9, adult; Z20.822 Contact with and (suspected) exposure to COVID-19; Z79.82 Long term (current) use of aspirin; Z79.4 Long term (current) use of insulin
CPT/HCPCS: 36415; 70450; 71045; 72125; 74018; 74176; 76770; 80048; 80053; 80061; 81001; 82570; 82948; 83036; 83605; 83615; 83690; 83735; 84100; 84300; 84484; 85025; 85610; 85730; 87040; 87071; 87075; 87086; 87205; 88305; 88307; 93005; 96361; 97139; 99251; 99284; J0692; J1817; J2270; J2405; J7030; J7050; J7121; J7799; U0002

== ENCOUNTER 2021-05-26 00:28 | Inpatient (IN) | payer MEDICARE, OTHER ==
[2021-05-26] VITALS (7 sets, daily range): BP systolic 114–130; BP diastolic 68–86
[~2021-05-26] VITALS: Ht 157.5 cm; Wt 72.6 kg
[~2021-05-26 00:28] MED LIST changes: +ASPIRIN EC81 MG PO; +DORZOLAMIDE-TIM10 ML OP; +ELIQUIS2.5 MG PO; +EUTHYROX75 MCG PO; +LUMIGAN2.5 M1 OP; +OMEPRAZOLE40 MG PO; +TRESIBA FL100 UNIT/1 SC; +ZOFRAN4 MG PO
[2021-05-26] MEDS ORDERED: FENTANYL CITRATE/PF 100MCG/2 ML INJ IV ONE (01:00)
[2021-05-26 01:39] LABS: BASOPHILS # (AUTO) 0.1 (0.0-0.1); BASOPHILS % 0.6 % (0.0-1.0); EOSINOPHILS # (AUTO) 0.1 (0.0-0.4); EOSINOPHILS % 1.2 % (0.0-6.0); HEMATOCRIT 37.5 % (34.2-44.1); HEMOGLOBIN 11.7 g/dL (12.0-16.0); LYMPHOCYTES # (AUTO) 1.4 (1.0-3.2); LYMPHOCYTES % 14.3 % (18.0-39.1); MEAN CORPUSCULAR HGB CONC 31.2 g/dL (31-35); MEAN CORPUSCULAR VOLUME 99.5 fL (81-99); MONOCYTES # (AUTO) 0.6 (0.2-0.8); NEUTROPHILS # (AUTO) 7.3 (2.1-6.9); NEUTROPHILS % 76.8 % (38.7-80.0); PLATELET COUNT 208 x10e3/uL (140-360); RED BLOOD COUNT 3.77 x10e6/uL (3.6-5.1); RED CELL DISTRIBUTION WIDTH 18.9 % (11.7-14.4)
[2021-05-26 01:52] LABS: ALBUMIN 2.6 g/dL (3.5-5.0); ALBUMIN/GLOBULIN RATIO 0.7 (0.8-2.0); ANION GAP 17.5 mmol/L (8-16); CALCIUM 8.3 mg/dL (8.4-10.2); CREATININE, SERUM 2.72 mg/dL (0.57-1.11); POTASSIUM 5.5 mmol/L (3.5-5.1)
[2021-05-26 01:56] LABS: INR 1.15; PROTHROMBIN TIME 15.6 seconds (11.9-14.5)
[2021-05-26 01:57] LABS: PARTIAL THROMBOPLASTIN TIME 28.8 seconds (23.8-35.5)
[2021-05-26 01:59] LABS: CREATINE KINASE MB 1.7 ng/mL (0-5.0)
[2021-05-26 02:00] LABS: COLOR,URINE YELLOW (YELLOW)
[2021-05-26 02:01] LABS: CLARITY,URINE TURBID (CLEAR); KETONES,URINE NEGATIVE (NEGATIVE); LEUKOCYTE ESTERASE ,URINE LARGE (NEGATIVE); NITRITE,URINE NEGATIVE (NEGATIVE); PROTEIN,URINE DIPSTICK 3+ (NEGATIVE); RBC,URINE >50 /HPF (0-5); URINE UROBILINOGEN 0.2 mg/dL (0.2 - 1); WBC,URINE (MAN) >50 /HPF (0-5)
[2021-05-26 02:02] LABS: BACTERIA,URINE MANY /HPF; EPITHELIAL CELLS,URINE FEW /LPF
[2021-05-26] MEDS ORDERED: CEFTRIAXONE 1 GM in SODIUM CHLORIDE 0.9% 50ML 50 ML IV ONE (02:15)
[2021-05-26] MEDS ORDERED: ALBUTEROL SULF 0.083% NEB SOLN 3 ML NEB NEB STA (02:25)
[2021-05-26] MEDS ORDERED: SODIUM CHLORIDE 0.9% 1000ML 1,000 ML IV STA (02:28)
[2021-05-26] MEDS ORDERED: INSULIN REGULAR, HUMAN 100 UNIT/1 ML IV ONE (02:30)
[2021-05-26] MEDS ORDERED: DEXTROSE 50% SYRINGE 50 ML IV ONE (02:30)
[2021-05-26] MEDS ORDERED: CALCIUM GLUCONATE 10% INJ 4.65 MEQ in SODIUM CHLORIDE 0.9% 50ML 50 ML IV ONE (02:30)
[2021-05-26] MEDS ORDERED: ONDANSETRON HCL INJ 2MG/ML 2ML 2 MG/ML VIAL IV PRN ×2 (02:30→08:00)
[2021-05-26] MEDS ORDERED: SODIUM CHLORIDE 0.9% 500ML 500 ML IV STA (02:38)
[2021-05-26] MEDS: SODIUM CHLORIDE 0.9% 1000ML 1,000 ML IV SCH ×2 (05:29→16:34)
[2021-05-26] MEDS ORDERED: HYDRALAZINE HCL 20 MG/ML VIAL IV PRN (08:00)
[2021-05-26] MEDS ORDERED: DIPHENHYDRAMINE HCL 25 MG CAP PO PRN (08:00)
[2021-05-26] MEDS ORDERED: BENZONATATE 100 MG CAP PO PRN (08:00)
[2021-05-26] MEDS ORDERED: DEXTROSE 50% SYRINGE 50 ML IV PRN (08:00)
[2021-05-26] MEDS ORDERED: ACETAMINOPHEN 325 MG TAB PO PRN (08:00)
[2021-05-26] MEDS ORDERED: POTASSIUM CHLORIDE 20 MEQ TAB CR PO PRN (08:00)
[2021-05-26] MEDS ORDERED: LIDOCAINE 4% PATCH TP PRN (08:00)
[2021-05-26] MEDS ORDERED: SIMETHICONE 80 MG CHEW PO PRN (08:00)
[2021-05-26] MEDS ORDERED: DOCUSATE SODIUM 100 MG CAP PO PRN (08:00)
[2021-05-26] MEDS ORDERED: ALBUTEROL/IPRATROPIUM 3 ML NEB NEB PRN (08:00)
[2021-05-26 08:46] LABS: ANION GAP 16.7 mmol/L (8-16); CALCIUM 8.7 mg/dL (8.4-10.2); CREATININE, SERUM 2.39 mg/dL (0.57-1.11); POTASSIUM 4.7 mmol/L (3.5-5.1)
[2021-05-26] MEDS ORDERED: CEFTRIAXONE 1 GM in SODIUM CHLORIDE 0.9% 50ML 50 ML IV SCH (09:00)
[2021-05-26] MEDS: CEFTRIAXONE 1 GM in SODIUM CHLORIDE 0.9% 50ML 50 ML IV SCH (09:11)
[2021-05-26] MEDS: Morphine 2mg Syringe 2 MG/ML SYR IV PRN (15:25)
[2021-05-26] MEDS: GABAPENTIN 100 MG CAP PO SCH (16:50)
[2021-05-26] MEDS ORDERED: APIXAB 2.5 MG TABLET PO SCH (17:00)
[2021-05-26] MEDS ORDERED: ENOXAPARIN SOD INJ 40 MG/0.4 ML SYR SC SCH (17:00)
[2021-05-27] VITALS (7 sets, daily range): BP systolic 121–146; BP diastolic 75–87
[2021-05-27] MEDS: SODIUM CHLORIDE 0.9% 1000ML 1,000 ML IV SCH ×3 (01:30→19:28)
[2021-05-27] MEDS: GABAPENTIN 100 MG CAP PO SCH ×2 (04:00→16:54)
[2021-05-27] MEDS ORDERED: HEPARIN 25,000 UNIT 1,100 UNIT in DEXTROSE 5% 250ML 250 ML IV SCH ×2 (04:15→04:45)
[2021-05-27] MEDS ORDERED: HEPARIN SOD (PORCINE) 5,000 UNIT/ML VIAL IV ONE (04:45)
[2021-05-27] MEDS: HEPARIN 25,000 UNIT 25,000 UNIT in DEXTROSE 5% 250ML 250 ML IV SCH ×2 (05:00→23:19)
[2021-05-27] MEDS ORDERED: HEPARIN 25,000 UNIT DRIP IV ONE (05:06)
[2021-05-27] MEDS ORDERED: PANTOPRAZOLE SOD 40 MG TABEC PO SCH (07:30)
[2021-05-27] MEDS: ASPIRIN 81 MG ENTERIC COATED PO SCH (08:49)
[2021-05-27] MEDS: PANTOPRAZOLE SOD 40 MG TABEC PO SCH (08:49)
[2021-05-27] MEDS: LOSARTAN POTASSIUM 25 MG TAB PO SCH (08:49)
[2021-05-27] MEDS: CEFTRIAXONE 1 GM in SODIUM CHLORIDE 0.9% 50ML 50 ML IV SCH (08:50)
[2021-05-27 09:47] LABS: BASOPHILS # (AUTO) 0.1 (0.0-0.1); BASOPHILS % 0.8 % (0.0-1.0); EOSINOPHILS # (AUTO) 0.2 (0.0-0.4); EOSINOPHILS % 2.3 % (0.0-6.0); HEMATOCRIT 33.7 % (34.2-44.1); HEMOGLOBIN 10.2 g/dL (12.0-16.0); LYMPHOCYTES # (AUTO) 0.8 (1.0-3.2); LYMPHOCYTES % 10.2 % (18.0-39.1); MEAN CORPUSCULAR HEMOGLOBIN 30.5 pg (28-32); MEAN CORPUSCULAR HGB CONC 30.3 g/dL (31-35); MEAN CORPUSCULAR VOLUME 100.9 fL (81-99); MONOCYTES # (AUTO) 0.5 (0.2-0.8); MONOCYTES % 6.5 % (4.4-11.3); NEUTROPHILS # (AUTO) 6.3 (2.1-6.9); NEUTROPHILS % 79.3 % (38.7-80.0); PLATELET COUNT 191 x10e3/uL (140-360); RED BLOOD COUNT 3.34 x10e6/uL (3.6-5.1); RED CELL DISTRIBUTION WIDTH 19.4 % (11.7-14.4)
[2021-05-27 10:19] LABS: ALBUMIN 2.2 g/dL (3.5-5.0); ALBUMIN/GLOBULIN RATIO 0.7 (0.8-2.0); ANION GAP 15.7 mmol/L (8-16); CREATININE, SERUM 1.97 mg/dL (0.57-1.11); MAGNESIUM 1.9 MG/DL (1.3-2.1); PHOSPHORUS 3.2 MG/DL (2.3-4.7); POTASSIUM 4.7 mmol/L (3.5-5.1)
[2021-05-27 13:28] LABS: FERRITIN 365.78 ng/mL (4.63-204.00)
[2021-05-27] MEDS: TRAMADOL HCL 50 MG TAB PO PRN (17:27)
[2021-05-27] MEDS: Morphine 2mg Syringe 2 MG/ML SYR IV PRN (21:35)
[2021-05-28] VITALS (8 sets, daily range): BP systolic 107–128; BP diastolic 75–93
[2021-05-28] MEDS: MELATONIN 5 MG TABLET PO PRN (01:29)
[2021-05-28] MEDS: GABAPENTIN 100 MG CAP PO SCH ×2 (04:30→18:23)
[2021-05-28 05:46] LABS: BASOPHILS % 0.6 % (0.0-1.0); EOSINOPHILS # (AUTO) 0.2 (0.0-0.4); EOSINOPHILS % 2.1 % (0.0-6.0); HEMATOCRIT 32.1 % (34.2-44.1); HEMOGLOBIN 9.7 g/dL (12.0-16.0); LYMPHOCYTES # (AUTO) 1.1 (1.0-3.2); LYMPHOCYTES % 14.9 % (18.0-39.1); MEAN CORPUSCULAR HEMOGLOBIN 30.7 pg (28-32); MEAN CORPUSCULAR HGB CONC 30.2 g/dL (31-35); MEAN CORPUSCULAR VOLUME 101.6 fL (81-99); MONOCYTES # (AUTO) 0.6 (0.2-0.8); MONOCYTES % 8.1 % (4.4-11.3); NEUTROPHILS # (AUTO) 5.3 (2.1-6.9); NEUTROPHILS % 73.3 % (38.7-80.0); PLATELET COUNT 199 x10e3/uL (140-360); RED BLOOD COUNT 3.16 x10e6/uL (3.6-5.1); RED CELL DISTRIBUTION WIDTH 19.3 % (11.7-14.4)
[2021-05-28 05:56] LABS: ANION GAP 12.6 mmol/L (8-16); CALCIUM 7.4 mg/dL (8.4-10.2); CREATININE, SERUM 1.85 mg/dL (0.57-1.11); POTASSIUM 4.6 mmol/L (3.5-5.1)
[2021-05-28] MEDS: CEFTRIAXONE 1 GM in SODIUM CHLORIDE 0.9% 50ML 50 ML IV SCH (09:25)
[2021-05-28] MEDS: PANTOPRAZOLE SOD 40 MG TABEC PO SCH (09:25)
[2021-05-28] MEDS: ASPIRIN 81 MG ENTERIC COATED PO SCH (09:25)
[2021-05-28] MEDS: LOSARTAN POTASSIUM 25 MG TAB PO SCH (09:27)
[2021-05-28] MEDS: SODIUM CHLORIDE 0.9% 1000ML 1,000 ML IV SCH (17:30)
[2021-05-28] MEDS: HEPARIN 25,000 UNIT 25,000 UNIT in DEXTROSE 5% 250ML 250 ML IV SCH (18:22)
[2021-05-28] MEDS: Morphine 2mg Syringe 2 MG/ML SYR IV PRN (22:42)
[2021-05-29] VITALS (8 sets, daily range): BP systolic 105–134; BP diastolic 69–92
[2021-05-29] MEDS: GABAPENTIN 100 MG CAP PO SCH (04:10)
[2021-05-29 05:22] LABS: BASOPHILS # (AUTO) 0.1 (0.0-0.1); BASOPHILS % 0.8 % (0.0-1.0); EOSINOPHILS # (AUTO) 0.2 (0.0-0.4); EOSINOPHILS % 2.2 % (0.0-6.0); HEMATOCRIT 32.6 % (34.2-44.1); HEMOGLOBIN 9.9 g/dL (12.0-16.0); LYMPHOCYTES # (AUTO) 1.1 (1.0-3.2); LYMPHOCYTES % 14.5 % (18.0-39.1); MEAN CORPUSCULAR HEMOGLOBIN 30.7 pg (28-32); MEAN CORPUSCULAR HGB CONC 30.4 g/dL (31-35); MEAN CORPUSCULAR VOLUME 101.2 fL (81-99); MONOCYTES # (AUTO) 0.5 (0.2-0.8); MONOCYTES % 6.3 % (4.4-11.3); NEUTROPHILS # (AUTO) 5.8 (2.1-6.9); NEUTROPHILS % 75.4 % (38.7-80.0); PLATELET COUNT 228 x10e3/uL (140-360); RED BLOOD COUNT 3.22 x10e6/uL (3.6-5.1); RED CELL DISTRIBUTION WIDTH 19.6 % (11.7-14.4)
[2021-05-29 05:34] LABS: ANION GAP 13.7 mmol/L (8-16); CALCIUM 7.9 mg/dL (8.4-10.2); CREATININE, SERUM 1.89 mg/dL (0.57-1.11); POTASSIUM 4.7 mmol/L (3.5-5.1)
[2021-05-29] MEDS: PANTOPRAZOLE SOD 40 MG TABEC PO SCH (07:30)
[2021-05-29] MEDS: LOSARTAN POTASSIUM 25 MG TAB PO SCH (09:00)
[2021-05-29] MEDS: CEFTRIAXONE 1 GM in SODIUM CHLORIDE 0.9% 50ML 50 ML IV SCH (09:00)
[2021-05-29] MEDS: ASPIRIN 81 MG ENTERIC COATED PO SCH (09:00)
[2021-05-29] MEDS: MEROPENEM 500 MG in SODIUM CHLORIDE 0.9% 50ML 50 ML IV SCH ×2 (14:00→14:45)
[2021-05-29] MEDS ORDERED: HYDROCORTISONE 2.5% CREAM 30GM TUBE TOP PRN (15:00)
[2021-05-29] MEDS: HYDROCORTISONE 2.5% CREAM 30GM TUBE TOP SCH (21:00)
[2021-05-30] VITALS (7 sets, daily range): BP systolic 119–139; BP diastolic 72–93
[2021-05-30] MEDS: HEPARIN 25,000 UNIT 25,000 UNIT in DEXTROSE 5% 250ML 250 ML IV SCH (04:46)
[2021-05-30 05:44] LABS: BASOPHILS # (AUTO) 0.1 (0.0-0.1); EOSINOPHILS # (AUTO) 0.2 (0.0-0.4); EOSINOPHILS % 3.4 % (0.0-6.0); LYMPHOCYTES # (AUTO) 1.2 (1.0-3.2); MEAN CORPUSCULAR HEMOGLOBIN 30.7 pg (28-32); MEAN CORPUSCULAR HGB CONC 30.3 g/dL (31-35); MEAN CORPUSCULAR VOLUME 101.2 fL (81-99); MONOCYTES # (AUTO) 0.5 (0.2-0.8); MONOCYTES % 7.8 % (4.4-11.3); NEUTROPHILS # (AUTO) 3.9 (2.1-6.9); NEUTROPHILS % 66.3 % (38.7-80.0); PLATELET COUNT 221 x10e3/uL (140-360); RED BLOOD COUNT 3.26 x10e6/uL (3.6-5.1); RED CELL DISTRIBUTION WIDTH 19.7 % (11.7-14.4)
[2021-05-30 06:05] LABS: ANION GAP 13.8 mmol/L (8-16); CALCIUM 7.8 mg/dL (8.4-10.2); CREATININE, SERUM 1.85 mg/dL (0.57-1.11); POTASSIUM 4.8 mmol/L (3.5-5.1)
[2021-05-30] MEDS: LOSARTAN POTASSIUM 25 MG TAB PO SCH (08:31)
[2021-05-30] MEDS: ASPIRIN 81 MG ENTERIC COATED PO SCH (08:31)
[2021-05-30] MEDS: HYDROCORTISONE 2.5% CREAM 30GM TUBE TOP SCH ×2 (08:31→21:00)
[2021-05-30] MEDS: PANTOPRAZOLE SOD 40 MG TABEC PO SCH (08:31)
[2021-05-30] MEDS: TRIAMCINOLONE ACET 0.1% CREAM 15 GM TUBE TOP SCH (15:34)
[2021-05-30] MEDS ORDERED: WARFARIN SOD 5 MG TAB PO SCH (17:00)
[2021-05-30] MEDS: Morphine 2mg Syringe 2 MG/ML SYR IV PRN (22:05)
[2021-05-31] VITALS (8 sets, daily range): BP systolic 112–159; BP diastolic 69–98
[2021-05-31] MEDS: HEPARIN 25,000 UNIT 25,000 UNIT in DEXTROSE 5% 250ML 250 ML IV SCH ×2 (05:00→18:07)
[2021-05-31 05:53] LABS: BASOPHILS # (AUTO) 0.1 (0.0-0.1); BASOPHILS % 1.1 % (0.0-1.0); EOSINOPHILS # (AUTO) 0.2 (0.0-0.4); EOSINOPHILS % 2.1 % (0.0-6.0); HEMATOCRIT 33.3 % (34.2-44.1); HEMOGLOBIN 10.1 g/dL (12.0-16.0); LYMPHOCYTES # (AUTO) 1.3 (1.0-3.2); LYMPHOCYTES % 17.9 % (18.0-39.1); MEAN CORPUSCULAR HEMOGLOBIN 30.3 pg (28-32); MEAN CORPUSCULAR HGB CONC 30.3 g/dL (31-35); MONOCYTES # (AUTO) 0.6 (0.2-0.8); MONOCYTES % 8.1 % (4.4-11.3); NEUTROPHILS % 70.2 % (38.7-80.0); PLATELET COUNT 234 x10e3/uL (140-360); RED BLOOD COUNT 3.33 x10e6/uL (3.6-5.1); RED CELL DISTRIBUTION WIDTH 19.4 % (11.7-14.4)
[2021-05-31] MEDS: PANTOPRAZOLE SOD 40 MG TABEC PO SCH (08:40)
[2021-05-31] MEDS: LOSARTAN POTASSIUM 25 MG TAB PO SCH (08:40)
[2021-05-31] MEDS: Morphine 2mg Syringe 2 MG/ML SYR IV PRN ×2 (08:41→17:50)
[2021-05-31] MEDS: HYDROCORTISONE 2.5% CREAM 30GM TUBE TOP SCH ×2 (09:19→21:45)
[2021-05-31] MEDS: TRIAMCINOLONE ACET 0.1% CREAM 15 GM TUBE TOP SCH ×2 (09:19→17:00)
[2021-05-31] MEDS ORDERED: ONDANSETRON HCL 4 MG ORAL DISINTEGRATING TAB PO PRN (09:30)
[2021-05-31] MEDS: TRAMADOL HCL 50 MG TAB PO PRN (20:17)
[2021-06-01] VITALS (11 sets, daily range): BP systolic 110–128; BP diastolic 70–94
[2021-06-01] MEDS: MELATONIN 5 MG TABLET PO PRN ×2 (02:17→20:32)
[2021-06-01] MEDS: Morphine 2mg Syringe 2 MG/ML SYR IV PRN ×2 (02:17→20:32)
[2021-06-01 05:41] LABS: BASOPHILS # (AUTO) 0.1 (0.0-0.1); BASOPHILS % 1.2 % (0.0-1.0); EOSINOPHILS # (AUTO) 0.1 (0.0-0.4); EOSINOPHILS % 1.3 % (0.0-6.0); HEMATOCRIT 32.4 % (34.2-44.1); HEMOGLOBIN 9.8 g/dL (12.0-16.0); LYMPHOCYTES # (AUTO) 1.2 (1.0-3.2); LYMPHOCYTES % 15.5 % (18.0-39.1); MEAN CORPUSCULAR HEMOGLOBIN 30.8 pg (28-32); MEAN CORPUSCULAR HGB CONC 30.2 g/dL (31-35); MEAN CORPUSCULAR VOLUME 101.9 fL (81-99); MONOCYTES # (AUTO) 0.5 (0.2-0.8); MONOCYTES % 7.2 % (4.4-11.3); NEUTROPHILS # (AUTO) 5.6 (2.1-6.9); NEUTROPHILS % 74.4 % (38.7-80.0); PLATELET COUNT 268 x10e3/uL (140-360); RED BLOOD COUNT 3.18 x10e6/uL (3.6-5.1); RED CELL DISTRIBUTION WIDTH 19.7 % (11.7-14.4)
[2021-06-01 05:53] LABS: INR 1.09
[2021-06-01] MEDS: HYDROCORTISONE 2.5% CREAM 30GM TUBE TOP SCH ×2 (09:41→16:18)
[2021-06-01] MEDS: LOSARTAN POTASSIUM 25 MG TAB PO SCH (09:42)
[2021-06-01] MEDS: PANTOPRAZOLE SOD 40 MG TABEC PO SCH (09:42)
[2021-06-01] MEDS: TRIAMCINOLONE ACET 0.1% CREAM 15 GM TUBE TOP SCH ×2 (09:42→16:17)
[2021-06-01] MEDS: HEPARIN 25,000 UNIT 25,000 UNIT in DEXTROSE 5% 250ML 250 ML IV SCH (18:42)
[2021-06-02] VITALS (8 sets, daily range): BP systolic 113–129; BP diastolic 72–88
[2021-06-02 00:40] LABS: INR 1.09
[2021-06-02] MEDS: PANTOPRAZOLE SOD 40 MG TABEC PO SCH (07:30)
[2021-06-02] MEDS: LOSARTAN POTASSIUM 25 MG TAB PO SCH (09:00)
[2021-06-02] MEDS: TRIAMCINOLONE ACET 0.1% CREAM 15 GM TUBE TOP SCH ×2 (10:40→15:44)
[2021-06-02] MEDS: HYDROCORTISONE 2.5% CREAM 30GM TUBE TOP SCH ×2 (10:40→21:00)
[2021-06-02 10:46] LABS: CALCIUM 8.3 mg/dL (8.4-10.2); CREATININE, SERUM 2.28 mg/dL (0.57-1.11); MAGNESIUM 1.9 MG/DL (1.3-2.1); PHOSPHORUS 3.2 MG/DL (2.3-4.7)
[2021-06-02] MEDS: Morphine 2mg Syringe 2 MG/ML SYR IV PRN ×2 (15:22→22:22)
[2021-06-02] MEDS: APIXABAN 5 MG TABLET PO SCH (21:00)
[2021-06-03] VITALS (7 sets, daily range): BP systolic 122–139; BP diastolic 56–87
[2021-06-03] MEDS: HYDROCODONE/APAP 5MG-325MG TAB PO PRN (00:13)
[2021-06-03 05:55] LABS: BASOPHILS # (AUTO) 0.1 (0.0-0.1); EOSINOPHILS # (AUTO) 0.1 (0.0-0.4); EOSINOPHILS % 2.1 % (0.0-6.0); HEMATOCRIT 30.4 % (34.2-44.1); HEMOGLOBIN 9.1 g/dL (12.0-16.0); LYMPHOCYTES # (AUTO) 0.9 (1.0-3.2); LYMPHOCYTES % 15.5 % (18.0-39.1); MEAN CORPUSCULAR HEMOGLOBIN 30.6 pg (28-32); MEAN CORPUSCULAR HGB CONC 29.9 g/dL (31-35); MEAN CORPUSCULAR VOLUME 102.4 fL (81-99); MONOCYTES # (AUTO) 0.5 (0.2-0.8); MONOCYTES % 7.9 % (4.4-11.3); NEUTROPHILS # (AUTO) 4.2 (2.1-6.9); NEUTROPHILS % 73.2 % (38.7-80.0); PLATELET COUNT 234 x10e3/uL (140-360); RED BLOOD COUNT 2.97 x10e6/uL (3.6-5.1); RED CELL DISTRIBUTION WIDTH 19.6 % (11.7-14.4)
[2021-06-03] MEDS: APIXABAN 5 MG TABLET PO SCH ×2 (09:05→16:27)
[2021-06-03] MEDS: LOSARTAN POTASSIUM 25 MG TAB PO SCH (09:05)
[2021-06-03] MEDS: PANTOPRAZOLE SOD 40 MG TABEC PO SCH (09:05)
[2021-06-03] MEDS: HYDROCORTISONE 2.5% CREAM 30GM TUBE TOP SCH ×2 (09:22→21:21)
[2021-06-03] MEDS: TRIAMCINOLONE ACET 0.1% CREAM 15 GM TUBE TOP SCH ×2 (09:22→16:27)
[2021-06-03 10:08] LABS: ANION GAP 16.2 mmol/L (8-16); CALCIUM 8.6 mg/dL (8.4-10.2); CREATININE, SERUM 2.44 mg/dL (0.57-1.11); MAGNESIUM 1.9 MG/DL (1.3-2.1); PHOSPHORUS 3.7 MG/DL (2.3-4.7); POTASSIUM 5.2 mmol/L (3.5-5.1)
[2021-06-03] MEDS ORDERED: FUROSEMIDE INJ 10 MG/ML 4 ML VIAL IV ONE (14:00)
[2021-06-04] VITALS (8 sets, daily range): BP systolic 100–132; BP diastolic 71–85
[2021-06-04] MEDS: HYDROCODONE/APAP 5MG-325MG TAB PO PRN (05:05)
[2021-06-04 05:37] LABS: BASOPHILS # (AUTO) 0.1 (0.0-0.1); EOSINOPHILS # (AUTO) 0.1 (0.0-0.4); EOSINOPHILS % 1.3 % (0.0-6.0); HEMATOCRIT 31.9 % (34.2-44.1); HEMOGLOBIN 9.7 g/dL (12.0-16.0); LYMPHOCYTES % 16.5 % (18.0-39.1); MEAN CORPUSCULAR HEMOGLOBIN 30.9 pg (28-32); MEAN CORPUSCULAR HGB CONC 30.4 g/dL (31-35); MEAN CORPUSCULAR VOLUME 101.6 fL (81-99); MONOCYTES # (AUTO) 0.5 (0.2-0.8); MONOCYTES % 7.9 % (4.4-11.3); NEUTROPHILS # (AUTO) 4.5 (2.1-6.9); PLATELET COUNT 246 x10e3/uL (140-360); RED BLOOD COUNT 3.14 x10e6/uL (3.6-5.1); RED CELL DISTRIBUTION WIDTH 19.7 % (11.7-14.4)
[2021-06-04 05:58] LABS: ANION GAP 16.1 mmol/L (8-16); CALCIUM 8.4 mg/dL (8.4-10.2); CREATININE, SERUM 2.49 mg/dL (0.57-1.11); POTASSIUM 5.1 mmol/L (3.5-5.1)
[2021-06-04] MEDS: PANTOPRAZOLE SOD 40 MG TABEC PO SCH (08:53)
[2021-06-04] MEDS: HYDROCORTISONE 2.5% CREAM 30GM TUBE TOP SCH ×2 (08:54→21:02)
[2021-06-04] MEDS: APIXABAN 5 MG TABLET PO SCH ×2 (08:54→17:05)
[2021-06-04] MEDS: TRIAMCINOLONE ACET 0.1% CREAM 15 GM TUBE TOP SCH ×2 (08:54→17:05)
[2021-06-05] VITALS (8 sets, daily range): BP systolic 122–163; BP diastolic 71–105
[2021-06-05] MEDS: HYDROCODONE/APAP 5MG-325MG TAB PO PRN ×2 (00:20→06:56)
[2021-06-05] MEDS: PANTOPRAZOLE SOD 40 MG TABEC PO SCH (07:30)
[2021-06-05] MEDS: APIXABAN 5 MG TABLET PO SCH ×2 (08:26→16:56)
[2021-06-05] MEDS ORDERED: SODIUM CHLORIDE 0.9% 1000ML 1,000 ML IV SCH (15:00)
[2021-06-05] MEDS: HYDROCORTISONE 2.5% CREAM 30GM TUBE TOP SCH ×2 (15:56→19:54)
[2021-06-05] MEDS: TRIAMCINOLONE ACET 0.1% CREAM 15 GM TUBE TOP SCH ×2 (15:56→16:52)
[2021-06-05] MEDS: Morphine 2mg Syringe 2 MG/ML SYR IV PRN (19:54)
[2021-06-05] MEDS: MELATONIN 5 MG TABLET PO PRN (19:54)
[2021-06-06] VITALS: BP 144/95
[2021-06-06] MEDS: Morphine 2mg Syringe 2 MG/ML SYR IV PRN ×2 (05:45→19:40)
[2021-06-06 06:03] LABS: BASOPHILS # (AUTO) 0.1 (0.0-0.1); BASOPHILS % 1.1 % (0.0-1.0); EOSINOPHILS % 0.6 % (0.0-6.0); HEMATOCRIT 31.7 % (34.2-44.1); HEMOGLOBIN 9.5 g/dL (12.0-16.0); LYMPHOCYTES # (AUTO) 0.7 (1.0-3.2); LYMPHOCYTES % 10.1 % (18.0-39.1); MEAN CORPUSCULAR HEMOGLOBIN 30.6 pg (28-32); MEAN CORPUSCULAR VOLUME 102.3 fL (81-99); MONOCYTES # (AUTO) 0.5 (0.2-0.8); MONOCYTES % 7.3 % (4.4-11.3); NEUTROPHILS # (AUTO) 5.2 (2.1-6.9); NEUTROPHILS % 80.6 % (38.7-80.0); PLATELET COUNT 240 x10e3/uL (140-360); RED CELL DISTRIBUTION WIDTH 19.5 % (11.7-14.4)
[2021-06-06 06:22] LABS: ANION GAP 14.8 mmol/L (8-16); CALCIUM 8.2 mg/dL (8.4-10.2); CREATININE, SERUM 2.63 mg/dL (0.57-1.11); POTASSIUM 4.8 mmol/L (3.5-5.1)
[2021-06-06] MEDS: HYDROCORTISONE 2.5% CREAM 30GM TUBE TOP SCH (07:56)
[2021-06-06] MEDS: APIXABAN 5 MG TABLET PO SCH ×2 (07:56→15:27)
[2021-06-06] MEDS: TRIAMCINOLONE ACET 0.1% CREAM 15 GM TUBE TOP SCH ×2 (07:56→15:27)
[2021-06-06] MEDS: PANTOPRAZOLE SOD 40 MG TABEC PO SCH (07:56)
[2021-06-06 08:00] VITALS: BP 133/84
[2021-06-06 08:15] VITALS: BP 133/84
[2021-06-06 11:35] VITALS: BP 127/79
[2021-06-06] MEDS: METOPROLOL TARTRATE 25 MG TAB PO SCH ×2 (14:47→15:27)
[2021-06-06] MEDS: HYDROCODONE/APAP 5MG-325MG TAB PO PRN (15:28)
[2021-06-06 16:44] VITALS: BP 128/86
== END 2021-06-06 21:00 | DRG 300 ==
LOC: EDBD 00:28 → ER 00:32 → ERHOLD 02:28 → MED/SURG 05:11 → OBSVTOIN 05-27 09:52
PROVIDERS: ADMIT Internal Medicine; ATTEND Internal Medicine
PROC: 02HV33Z Insertion of Infusion Device into Superior Vena Cava, Percutaneous Approach (ICD-10-PCS; principal; 2021-05-27)
DX: I82.412 Acute embolism and thrombosis of left femoral vein (principal); N17.9 Acute kidney failure, unspecified; I13.0 Hypertensive heart and chronic kidney disease with heart failure and stage 1 through stage 4 chronic kidney disease, or unspecified chronic kidney disease; Z16.24 Resistance to multiple antibiotics; N18.30 Chronic kidney disease, stage 3 unspecified; E87.5 Hyperkalemia; I50.9 Heart failure, unspecified; E66.01 Morbid (severe) obesity due to excess calories; I48.91 Unspecified atrial fibrillation; E11.22 Type 2 diabetes mellitus with diabetic chronic kidney disease; I82.511 Chronic embolism and thrombosis of right femoral vein; D63.8 Anemia in other chronic diseases classified elsewhere; Z93.3 Colostomy status; Z83.3 Family history of diabetes mellitus; Z82.49 Family history of ischemic heart disease and other diseases of the circulatory system; Z68.29 Body mass index [BMI] 29.0-29.9, adult; Z90.49 Acquired absence of other specified parts of digestive tract; Z80.1 Family history of malignant neoplasm of trachea, bronchus and lung; Z80.0 Family history of malignant neoplasm of digestive organs; Z80.3 Family history of malignant neoplasm of breast; E86.0 Dehydration; B96.5 Pseudomonas (aeruginosa) (mallei) (pseudomallei) as the cause of diseases classified elsewhere; B96.20 Unspecified Escherichia coli [E. coli] as the cause of diseases classified elsewhere; K57.90 Diverticulosis of intestine, part unspecified, without perforation or abscess without bleeding; M19.90 Unspecified osteoarthritis, unspecified site; R53.81 Other malaise; L27.1 Localized skin eruption due to drugs and medicaments taken internally; T36.1X5A Adverse effect of cephalosporins and other beta-lactam antibiotics, initial encounter; Y92.230 Patient room in hospital as the place of occurrence of the external cause; Z79.82 Long term (current) use of aspirin; Z79.4 Long term (current) use of insulin; Z20.822 Contact with and (suspected) exposure to COVID-19; B99.8 Other infectious disease; Z22.39 Carrier of other specified bacterial diseases
CPT/HCPCS: 36415; 36569; 71045; 80048; 80053; 81001; 81241; 81400; 82105; 82270; 82378; 82550; 82553; 82607; 82728; 82746; 82948; 83010; 83540; 83615; 83735; 84100; 84466; 84484; 85025; 85045; 85303; 85306; 85610; 85730; 86301; 86304; 87086; 87186; 93005; 93970; 94640; 94799; 97139; 99251; 99284; G0378; J0610; J0696; J1644; J1817; J1940; J2185; J2270; J3010; J7030; J7040; J7799; Q0162; U0002